=== PATIENT | male | born 1965 | race Caucasian/White ===

== ENCOUNTER 2020-05-16 13:37 | Emergency (ER) | payer OTHER, SELFPAY ==
[2020-05-16 14:42] VITALS: BP 157/106; PULSE 93; RESP 20; TEMP 36.4; O2SAT 100; BMI 25.0
--- NOTE | 2020-05-16 15:16 | CT_ITS ---
EXAMINATION: CT CHEST WITHOUT CONTRAST CLINICAL INFORMATION: Right-sided pain COMPARISON: None TECHNIQUE: Multidetector volumetric CT imaging of the chest was done. Axial MIP volume rendering provided. Sagittal and coronal reformatted images were obtained. This CT examination was performed using dose optimization techniques as appropriate, variously including the following: *Automated exposure control *Adjustment of mA and/or kV according to patient size (this includes techniques or standardized protocols for targeted exams where dose is matched to indication/reason for exam; i.e. 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 MEDIASTINUM: The mediastinum is notable for moderately severe coronary atherosclerosis.. PLEURA: There is no pleural effusion. No pleural mass or thickening. AXILLA: No lymphadenopathy. UPPER ABDOMEN: Partial imaging of severe hepatic steatosis. OSSEOUS STRUCTURES: Minimally displaced acute-appearing right 12th rib fracture posteriorly. No additional findings. CT/CT chest wo con IMPRESSION: Acute right-sided 12th rib fracture posteriorly. No underlying parenchymal abnormality. No pneumothorax.
--- NOTE | 2020-05-16 15:22 | ED_ITS ---
HPI - Fall General Chief Complaint: Fall Stated Complaint: fall Time Seen by Provider: 05/16/20 14:55 Source: patient History of Present Illness HPI Narrative: 54 y.o. M with no significant PMH, takes flonase periodically presenting to the ED after a fall. Pt. states he was at work and there were items on a pallet and he the pallets moved and he slipped and fell landing on his right side. He was able to get himself up and began having increased pain so his friend brought him to the ED. It is on the inferior aspect of his ribs. He insists he broke ribs. The pain is radiating into his upper abdomen. He otherwise denies head injury, no LOC. He is not on anticoagulation. He denies back pain, vomiting, limb injury. No parasthesias reported. No incontinence. Denies symptoms such as CP, SOB, dizziness, lightheadedness prior to the fall. MD complaint: fall Fall from: standing Place fall occurred: work Loss of consciousness: none Symptoms prior to fall: none Related Data Previous Rx's Medication Instructions Recorded acetaminophen [Tylenol] 650 mg PO Q6H PRN 7 Days #28 tab 05/16/20 ibuprofen 600 mg PO Q6H PRN 7 Days #28 tab 05/16/20 lidocaine 1 patch TOPICAL DAILY PRN 7 Days 05/16/20 #7 ea oxycodone 5 mg PO Q6H PRN 3 Days #12 cap 05/16/20 Allergies Allergy/AdvReac Type Severity Reaction Status Date / Time No Known Allergies Allergy Verified 05/16/20 14:47 Review of Systems Constitutional: Constitutional: Denies fever(s) Eyes: Eyes: Reports no additional eye complaints ENT: Denies dizziness and Denies neck pain Cardiovascular: Cardiovascular: Denies chest pain, Denies syncope and Denies dyspnea Comments: rib pain Respiratory: Respiratory: Denies dyspnea Gastrointestinal: Gastrointestinal: Denies abdominal pain and Denies vomiting Genitourinary: Genitourinary: Denies urinary incontinence Musculoskeletal: Musculoskeletal: Denies neck pain Neurologic: Denies dizziness and Denies syncope Psychiatric: Psychiatric: Reports no additional psychiatric complaints Hematologic/Lymphatic: Hematologic/Lymphatic: Denies easy bleeding PMFSH Social History Social History (Updated 05/16/20 @ 17:00 by SHERRIE Vera) Use of substances other than those prescribed or required for medical reasons: No Advance Directives: No Advance Directives Information Provided: Yes Current occupational status: employed Current occupation: works at [employer] Physical Exam Vital Signs: Vital Signs: Last Vital Signs Temp 98.8 F 05/16/20 16:00 Pulse 89 05/16/20 16:00 Resp 20 05/16/20 14:42 BP 170/120 H 05/16/20 16:00 Pulse Ox 97 05/16/20 16:00 Body Mass Index 25.0 Const: Other: sitting upright at the edge of the bed very uncomfortable Orientation/consciousness: patient oriented x3 HENMT: Head: Yes normocephalic and Yes atraumatic Eyes: Pupils: Equal, round and reactive pupils present EOM: EOMs intact bilaterally Neck: Neck: Yes full ROM, Yes trachea midline and Yes supple Chest: Other: tenderness diffusely to right lateral chest wall, no overlying ecchymosis, no open wounds, no rash Resp: Effort & Inspection: normal respiratory effort and able to speak in complete sentences Auscultation: clear to auscultation bilaterally Cardio: Rate: regular rate Rhythm: regular rhythm GI: Inspection: No distended Palpation (GI): Soft to palpation and nontender Back/Spine/Pelvis: Other: no midline cervical, thoracic or lumbar tenderness Skin: Other: warm, moist Neuro: General: patient oriented x3 and no focal motor deficits Cranial nerves: Yes Equal, round and reactive pupils present Extrem: Other: atraumatic, pelvis stable General: Yes full ROM Psych: Appearance: well kempt Course Course Course Narrative: CT shows mildly displaced 12th rib fx. No PNX. Will give incentive spirometer. Will give thoracic surgery follow up. Work connection is also provided since this was a work related injury. HTN most likely secondary to pain, no hx of HTN. Return precautions provided. Will give rx for oxycodone, [place] reviewed. Discussed avoiding driving, working while taking this medication.t. is currently in the process of establishing insurance. Paperwork for work filled out. MDM - Fall MDM Narrative Medical decision making narrative: 54 y.o. M presenting to the ED with right lateral chest wall pain after a fall VS significant for HTN, not toxic appearing, hemodynamically stable WIll plan for chest CT to r/o bony injury, PNX. No preceeding symptoms prior to the fall, fall was mechanical, unlikely syncopal episode. Pt. denies hitting his head, no LOC, not on anticoagulation lower suspicion for intracranial pathology. No midline vertebral tenderness to suggest a fracture. Adbomen is nontender, pain is most likely referred from chest, will defer abdominal imaging. Limbs are atraumatic. No red flags for cord compression. Will give analgesia in the ED as pt. appears very uncomfortable. Discharge Plan Discharge Clinical Impression: Closed rib fracture, Fall Patient Disposition: Home, Self-Care Instructions: How to Use an Incentive Spirometer (ED), Rib Fracture (ED) Additional Instructions: Your CT scan showed you have a 12th rib fracture on the right side. Please call the thoracic surgeon for follow up regarding your broken rib. Use the incentive spirometer, do 5 exercises every hour. Please return to the emergency department if your symptoms worsen, increased pain, trouble breathing, dizziness, feeling faint, abdominal pain, vomiting or any other concerning symptoms. Prescriptions: New acetaminophen [Tylenol] 325 mg tablet 650 mg PO Q6H PRN (Reason: pain) 7 Days Qty: 28 RF: 0 ibuprofen 600 mg tablet 600 mg PO Q6H PRN (Reason: pain) 7 Days Qty: 28 RF: 0 oxycodone 5 mg capsule 5 mg PO Q6H PRN (Reason: pain) 3 Days Qty: 12 RF: 0 lidocaine 5 % adhesive patch,medicated 1 patch topical DAILY PRN (Reason: pain) 7 Days Qty: 7 RF: 0 Referrals: [facility] [Other] - 2 days [facility] [Other] - 2 days Alexis Joe MD [Physician] - 2 days (to discuss rib fracture ) Interventions: ED Discharge Assessment Last Done: 05/16/20 17:14 Discharge Date/Time: 05/16/20 17:16
[2020-05-16] MEDS: Lidocaine 4 % Patch ADH..PATCH 1 PATCH TRANSDERMA (15:56)
[2020-05-16] MEDS: Ketorolac Tromethamine 30 MG/ML VIAL IM (15:57)
[2020-05-16] MEDS: oxyCODONE HCl Immed Release 5 MG TABLET PO (15:59)
[2020-05-16] MEDS: Acetaminophen 325 MG TABLET 650 MG PO (15:59)
[2020-05-16 16:00] VITALS: BP 170/120; PULSE 89; TEMP 37.1; O2SAT 97
[2020-05-16] MEDS: Gabapentin 100 MG CAPSULE PO (16:00)
== END 2020-05-16 17:16 | disposition home or self-care (01) ==
PROVIDERS: Emergency Provider Emergency Medicine Emergency Medical Services
DX: S22.31XA Fracture of one rib, right side, initial encounter for closed fracture (principal); R07.81 Pleurodynia; Y29.XXXA Contact with blunt object, undetermined intent, initial encounter; Y93.9 Activity, unspecified; Y92.69 Other specified industrial and construction area as the place of occurrence of the external cause; Y99.0 Civilian activity done for income or pay; Z79.899 Other long term (current) drug therapy
CPT/HCPCS: 71250; 96372; 99284; J1885

== ENCOUNTER 2020-05-22 14:27 | Emergency (ER) | payer OTHER, SELFPAY ==
--- NOTE | 2020-05-22 | XR_ITS ---
EXAMINATION: XR RIBS, RIGHT CLINICAL INFORMATION: Rib injury. COMPARISON: CT chest 05/16/2020 TECHNIQUE: 3 views of the right ribs were obtained. Chest PA. FINDINGS: Lungs are clear. No consolidation, pneumothorax, or pleural effusion. The cardiomediastinal silhouette and pulmonary vasculature are normal. Osseous structures are unremarkable. Ribs are intact. No fractures are identified. XR/XR ribs RT min 3V w CXR1V IMPRESSION: Unremarkable chest exam. There is no acute right rib fracture. A 12th rib fractures seen posteriorly on the previous CT chest exam 05/16/2020 is not readily visualized on this exam.
[2020-05-22 14:45] VITALS: BP 203/112; PULSE 72; RESP 16; TEMP 36.1; O2SAT 95; BMI 25.7
--- NOTE | 2020-05-22 16:03 | ED_ITS ---
HPI - General Adult General Chief complaint: Extremity Problem Stated complaint: back pain Time Seen by Provider: 05/22/20 15:47 Source: patient Mode of arrival: ambulatory Limitations: no limitations History of Present Illness HPI narrative: 54-year-old male who presents emergency department for evaluation of right posterior chest pain. The patient had a work related injury approximately 1 week prior, he fell landing on his back. He was seen here at [facility] and had a CT scan of his chest which diagnosed a 12th rib fracture. The patient was treated with ibuprofen, Tylenol, oxycodone and lidoc [place] patches. He states that several days prior when he used a lidocaine patch he developed chest pain which was relieved after removed the patch. He states that he was doing well until today when he was driving he reached with his right arm to get his phone when he had severe pain in his right posterior back in the area of the broken rib. He describes the pain as a crunching sharp pain which i s worse with breathing worse with movement. Pain is 9/10. He denied fever, chills, cough, shortness of breath or dyspnea on exertion. Related Data Previous Rx's Medication Instructions Recorded acetaminophen [Tylenol] 650 mg PO Q6H PRN 7 Days #28 tab 05/16/20 ibuprofen 600 mg PO Q6H PRN 7 Days #28 tab 05/16/20 lidocaine 1 patch TOPICAL DAILY PRN 7 Days 05/16/20 #7 ea oxycodone 5 mg PO Q6H PRN 3 Days #12 cap 05/16/20 oxycodone 5 mg PO Q4H PRN #14 tab 05/22/20 oxycodone 5 mg PO Q4H PRN #14 tab 05/22/20 Allergies Allergy/AdvReac Type Severity Reaction Status Date / Time No Known Allergies Allergy Verified 05/16/20 14:47 Review of Systems Review of Systems: Yes all other systems are reviewed and are negative Neurologic: Reports Abnormal speech present [facility] Past Medical History [facility] Narrative: Patient states that he has a history of borderline hypertension and does not take any medications, he is in the process of getting a primary care doctor. He denies tobacco, alcohol or drug use. Medical History (Updated 05/22/20 @ 16:14 by Johnnie Lam MD) Right rib fracture Social History Social History (Updated 05/16/20 @ 17:00 by SHERRIE Vera) Advance Directives: No Advance Directives Information Provided: No Current occupational status: employed Current occupation: works at [employer] Physical Exam Vital Signs: Vital Signs: Last Vital Signs Temp 96.9 F 05/22/20 14:45 Pulse 72 05/22/20 14:45 Resp 16 05/22/20 14:45 BP 203/112 H 05/22/20 14:45 Pulse Ox 95 05/22/20 14:45 Body Mass Index 25.7 Const: General: cooperative and healthy appearing Orientation/consciousness: oriented to person and oriented to place Limitations: no limitations HENMT: Head: Yes normal to inspection, Yes normocephalic and Yes atraumatic Ears: external ears normal General nose exam: Normal external nose present Face and sinus: Yes normal facial exam Mouth: Normal oral and palatal mucosa present Throat: Yes posterior oropharynx normal Eyes: Periorbital: periorbital findings normal Eyelids: Yes eyelids normal Conjunctivae: conjunctivae normal Sclerae: sclerae normal Corneas: corneas normal Pupils: Equal, round and reactive pupils present Direct Ophthalmoscopy: normal light reflex Neck: Neck: Yes normal visual inspection Chest: Chest palpation & inspection: normal inspection of the chest and tenderness (Right posterior chest in area of rib 12, no crepitus, no ecchymosis) Resp: Effort & Inspection: normal respiratory effort and able to speak in complete sentences Auscultation: clear to auscultation bilaterally Cardio: Rate: regular rate Rhythm: regular rhythm Heart sounds: S1 normal heart sound present, S2 normal heart sound present and no murmurs GI: Inspection: Yes normal to inspection : General: Yes no CVA tenderness Back/Spine/Pelvis: Back: no CVA tenderness Cervical Spine: normal cervical lordosis Thoracic/Lumbar Spine: thoracic and lumbar spine normal to ins pection Skin: Lesions: no lesions Rashes: no rashes Wounds: no wounds Neuro: General: oriented to person and oriented to place Cranial nerves: Yes Equal, round and reactive pupils present Cognition (Neuro): normal cognition Speech: Abnormal speech present Motor exam (neuro): 5/5 motor strength present throughout Extrem: General: Yes normal to inspection and Yes full ROM Psych: Appearance: well kempt Mental Status: mental status grossly normal Speech and movement: Normal speech and movement present Affect: normal affect Attitude: cooperative Thought process: Normal thought process present Thought content: Normal thought content present Course Course Course Narrative: 54-year-old man with a right 12 4th fracture diagnosed on 05/16/[address] scan here at [facility] who presents with increased right sided chest pain after reaching for his phone. Physical examination did reveal tenderness with palpation over his right 12th rib region with no crepitus or ecchymosis noted. Chest x-ray did not visualize the rib fracture, it was only seen on CT scan previously, and there was no evidence of pneumothorax or pneumonia. I did discuss this finding with the patient. The patient was wrapped with an Pool wrap to make a rib belt to see if this helps his pain. I did tell him that a rib belt does not increase your risk for pneumonia. The patient states that has a very physical job no do not think that he will build return to work for 1 week. He was advised to contact her occupational health clinic for re-evaluation on Sunday morning. The patient will be given another prescription for oxycodone to help with his pain. He was discharged with printed and verbal instructions. Procedures Procedure Narrative Procedure Narrative: Application of Pool wrap/rib belt I discussed wrapping the patient with an Pool wrap to act as an rib belt and he consented. A 6 in Pool wrap was wrapped around the patient's lower chest to encompass the 12th rib. The patient did get some relief with application of the Pool wrap. There were no complications. Discharge Plan Discharge Clinical Impression: Rib injury Chest pain Qualifiers: Chest pain type: chest pain on breathing Qualified Code(s): R07.1 - Chest pain on breathing Patient Disposition: Home, Self-Care Instructions: Rib Fracture (ED) Additional Instructions: The x-ray today did not reveal a rib fracture, the rib fracture was only seen on your CT scan. There is no evidence for pneumonia or pneumothorax (popped lung). It sometimes takes 2-6 weeks for rib fracture to heal. The Pool wrap will act as a rib belt and help with the pain that she experiencing. You can also purchase a rib belt from any pharmacy or use the Pool wrap. Rib belts do not increase her risk for pneumonia. Take ibuprofen 200 mg pills, 3 pills every 6 hours as needed for pain. Take Tylenol (acetaminophen) 500 mg pills, 2 pills every 4 to 6 hours as needed for pain. For pain not relieved by ibuprofen and Tylenol take oxycodone 5 mg pills, 1 pill every 4-6 hours as needed for pain. This is a narcotic medication and can cause addiction, this medication can make you sleepy, do no work or drive while taking this medication, this medication can make you drowsy. Follow-up with our Occupational Health Clinic, [facility] or any occupational clinically you choose. You should follow up within 1-2 days to determine your back to work status. I will give you a note not return to work for 1 week, but it is very important that he follow up with the occupational health clinic to confirm the amount of time that she needed to stay out of work. Please return to the emergency department if your symptoms get worse or if you develop any symptoms that are concerning to you. Prescriptions: New oxycodone 5 mg tablet 5 mg PO Q4H PRN (Reason: pain) Qty: 14 RF: 0 oxycodone 5 mg tablet 5 mg PO Q4H PRN (Reason: pain) Qty: 14 RF: 0 No Action acetaminophen [Tylenol] 325 mg tablet 650 mg PO Q6H PRN (Reason: pain) 7 Days Qty: 28 RF: 0 ibuprofen 600 mg tablet 600 mg PO Q6H PRN (Reason: pain) 7 Days Qty: 28 RF: 0 oxycodone 5 mg capsule 5 mg PO Q6H PRN (Reason: pain) 3 Days Qty: 12 RF: 0 lidocaine 5 % adhesive patch,medicated 1 patch topical DAILY PRN (Reason: pain) 7 Days Qty: 7 RF: 0
== END 2020-05-22 16:30 | disposition home or self-care (01) ==
PROVIDERS: Emergency Provider Emergency Medicine Emergency Medical Services
DX: R07.1 Chest pain on breathing (principal); M79.601 Pain in right arm; Z79.899 Other long term (current) drug therapy
CPT/HCPCS: 71101; 99283

== ENCOUNTER 2020-11-09 14:04 | Outpatient (REF) | payer OTHER, SELFPAY ==
--- NOTE | ~2020-11-09 | XR_ITS ---
EXAMINATION: XR SHOULDER, LEFT CLINICAL INFORMATION: Pain COMPARISON: None TECHNIQUE: AP external rotation, Grashey, scapular Y, and axillary views of the left shoulder. FINDINGS: Bone alignment is normal. No fracture or dislocation is seen. The glenohumeral joint is normal. There is arthritis at the acromioclavicular joint. Soft tissues are unremarkable. XR/XR shoulder LT min 2V IMPRESSION: Arthritis at the acromioclavicular joint.
== END 2020-11-09 14:05 | disposition home or self-care (01) ==
LOC: HO.HMGCX 14:04
PROVIDERS: PCP Family Medicine; Visit Provider Family Medicine
DX: M25.512 Pain in left shoulder (principal)
CPT/HCPCS: 73030

== ENCOUNTER 2020-12-01 07:51 | Outpatient (REF) | payer OTHER, SELFPAY ==
--- NOTE | ~2020-12-01 | XR_ITS ---
EXAMINATION: XR SHOULDER, LEFT CLINICAL INFORMATION: Pain COMPARISON: Previous x-ray October 2020 TECHNIQUE: Three views of the left shoulder. FINDINGS: Bone alignment is normal. No fracture or dislocation is seen. The glenohumeral joint is normal. There is arthritis at the acromioclavicular joint. Soft tissues are normal. XR/XR shoulder LT min 2V IMPRESSION: Arthritis at the acromioclavicular joint.
== END 2020-12-01 07:52 | disposition home or self-care (01) ==
LOC: HO.HOSX 07:51
PROVIDERS: Visit Provider Orthopaedic Surgery
DX: S46.002A Unspecified injury of muscle(s) and tendon(s) of the rotator cuff of left shoulder, initial encounter (principal)
CPT/HCPCS: 20610; 73030; 99202; J1040

== ENCOUNTER → 2021-01-07 12:34 | Outpatient (BNVA) | payer OTHER, SELFPAY | PROVIDERS: Visit Provider Physician Assistant | DX: S46.002D Unspecified injury of muscle(s) and tendon(s) of the rotator cuff of left shoulder, subsequent encounter (principal); M77.8 Other enthesopathies, not elsewhere classified | CPT/HCPCS: 99212 ==

== ENCOUNTER 2021-01-17 09:47 | Outpatient (REF) | payer OTHER, SELFPAY | END 2021-01-17 09:48 | disposition home or self-care (01) | LOC: HO.MRI 09:47 | PROVIDERS: PCP Family Medicine; Visit Provider Physician Assistant | DX: Z13.89 Encounter for screening for other disorder (principal) ==

== ENCOUNTER → 2021-01-28 09:29 | Outpatient (BNVA) | payer OTHER, SELFPAY | PROVIDERS: PCP Family Medicine; Visit Provider Physician Assistant | DX: M77.8 Other enthesopathies, not elsewhere classified (principal); S46.002D Unspecified injury of muscle(s) and tendon(s) of the rotator cuff of left shoulder, subsequent encounter | CPT/HCPCS: 99212 ==

== ENCOUNTER 2024-06-25 09:58 | Emergency (ER) | payer OTHER, SELFPAY ==
--- NOTE | ~2024-06-25 | CT_ITS ---
EXAMINATION: CT ABDOMEN AND PELVIS WITH CONTRAST CLINICAL INFORMATION: Elevated lipase COMPARISON: None available. TECHNIQUE: Multidetector volumetric images were obtained from the superior aspect of the liver through the pubic symphysis following administration 85 mL of Omnipaque 350 intravenous contrast. Sagittal and coronal reformatted images were obtained on the technologist's workstation. Oral contrast: No This CT examination was performed using dose optimization techniques as appropriate, variously including the following: *Automated exposure control *Adjustment of mA and/or kV according to patient size (this includes techniques or standardized protocols for targeted exams where dose is matched to indication/reason for exam; i.e. extremities or head) *Use of iterative reconstruction technique DLP: 475 mGy centimeter. FINDINGS: LUNG BASES: Mild pulmonary patchy groundglass with 1 mm nodularity, right lower lung lobe. LIVER, GALLBLADDER, AND BILIARY TREE: Liver measures 17 cm. Decreased enhancement pattern No focal lesion. Portal veins, hepatic veins and intrahepatic portion of the IVC are patent. 2 mm hypodensity in the dome of the left hepatic lobe too small to be fully characterized. No pericholecystic fluid collection or gallbladder wall thickening. No intrahepatic or extrahepatic biliary ductal dilatation. PANCREAS: No focal lesion. No peripancreatic fluid collection. No main pancreatic ductal dilatation. SPLEEN: 12 cm. No focal lesion. ADRENAL GLANDS: No nodular lesion. KIDNEYS AND URETERS: Normal enhancement pattern of the renal parenchyma. No focal lesion. No hydronephrosis. BLADDER: Fluid-filled nearly collapsed. GASTROINTESTINAL TRACT: There is mild concentric wall thickening involving the distal ileal loops. No intestinal obstruction pattern. No pneumatosis intestinalis. Appendix is normal. No pneumoperitoneum. No ascites. ABDOMINAL WALL: Small fat-containing umbilical hernia. LYMPH NODES: Nonspecific mildly prominent mesenteric lymph nodes. VASCULAR: Mixed plaques throughout the abdominal aorta wall and iliac arteries the origin of the left main renal artery and the origin of the superior mesenteric artery. No aneurysm or dissection abdominal aorta. Calcified plaques in the coronary arteries. Retroaortic trajectory left main renal vein. PELVIC VISCERA: Prostate gland is not enlarged. OSSEOUS STRUCTURES: Bilateral spondylolysis pars interarticularis L5-S1 resulting in 1 mm anterolisthesis. Sclerosis and the sacroiliac joints. Degenerative changes in the coxofemoral joints. CT/CT abdomen pelvis w IV con IMPRESSION: Concerning enteritis. An acute inflammatory bowel disease cannot be entirely excluded. Hepatomegaly, mild and steatosis. Questionable acute airspace disease, right lower lung lobe. 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 Small fat-containing umbilical hernia. Fleischner guidelines were followed. Electronically signed by: Víctor Dick MD 06/25/2024 01:55 PM [facility]
--- NOTE | ~2024-06-25 | CT_ITS ---
EXAMINATION: CT HEAD WITHOUT IV CONTRAST HISTORY: ams seizure. TECHNIQUE: Unenhanced helical CT of the head was performed per standard departmental protocol. Coronal and sagittal reformats of the head were also evaluated. One or more of the following techniques was used for dose reduction: Automated exposure control, adjustment of the mA and/or kV according to patient size, use of iterative reconstruction technique. DLP: 646 mGy-cm COMPARISON: There are no prior studies for comparison. FINDINGS: BRAIN: The brain parenchyma is unremarkable. There is normal lainez/white differentiation. The ventricular system is normal in size and configuration. There is no mass effect or midline shift. No intra- or extra-axial fluid collections are identified. SINUSES: The visualized paranasal sinuses are clear. The mastoid air cells and middle ear cavities are well pneumatized. ORBITS: The visualized orbits are unremarkable. BONES/SOFT TISSUES: The extracranial soft tissues are unremarkable. The calvarium is intact. No suspicious lytic or sclerotic lesions. CT/CT head/brain wo IV con IMPRESSION: Unremarkable unenhanced head CT. Electronically signed by: Contreras Coffman MD 06/25/2024 12:54 PM [facility]
[2024-06-25 10:08] VITALS: BP 143/110; PULSE 105; RESP 16; TEMP 35.9; O2SAT 99; BMI 28.0
--- NOTE | 2024-06-25 10:08 | ED.NEUROSD ---
HPI - Neuro Symptoms/Deficit General Chief Complaint: Altered Mental Status Stated Complaint: Confusion due to prior seizure Time Seen by Provider: 06/25/24 11:24 Source: patient Mode of arrival: ambulatory Limitations: no limitations History of Present Illness ED Provider: HPI Narrative: Patient's history of seizure disorder last seizure was about 15 years ago used to be on Topamax ,which was stopped by the primary care doctor as patient did not have a seizure for long on 06/15 patient's was vomiting night and in the morning found himself on the floor with tongue bite likely had a seizure patient lives alone since then patient friend noticed that patient is confused does not know how to unbuckle himself out of the car does not know time of the day patient has had lack of sleep and was taking oxycodone Related Data Previous Rx's ?Medication ?Instructions ?Recorded ibuprofen 800 mg tablet 800 mg PO Q8H PRN pain 30 days #90 10/29/20 tabs oxycodone 10 mg tablet 10 mg PO ONCE PRN pain 1 day #1 tab 01/20/21 blood-glucose meter #1 ea 06/25/24 levetiracetam 500 mg tablet 500 mg PO BID #60 tabs 06/25/24 (Keppra) metformin 500 mg tablet 500 mg PO BID #60 tabs 06/25/24 Allergies Allergy/AdvReac Type Severity Reaction Status Date / Time Seasonal Allergies Allergy itchy Verified 06/25/24 10:14 watery eyes, nasal congestion Review of Systems Review of Systems: Yes all other systems are reviewed and are negative [facility] Past Medical History Medical History (Updated 06/25/24 @ 15:34 by Mekhi Narvaez MD) Diabetes mellitus Right rib fracture Social History Social History Housing: House Patient Tobacco Use Status: Never used Tobacco e-Cigarette/Vaping Use: Never Used service: No Current occupational status: employed 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 Oriented X3. No acute distress. Eyes: PERRLA, No Nystagmus ENT: Pharynx normal. Oral Mucosa moist tongue laceration on the lateral aspect poor dental hygiene with multiple cavities Neck: Normal inspection. Neck supple. CVS: Normal heart rate and rhythm. Pulses normal. Respiratory: No respiratory distress. Equal air entry bilateral, no wheezing/rales/rhonchi Abdomen: Soft and nontender. Bowel sounds are present, no mass palpable, no CVA tenderness Skin: Skin warm and dry. Normal skin color. Normal skin turgor. Extremities: No lower extremity edema. No calf tenderness Neuro: Oriented X 3. No motor deficit. No sensory deficit.No cerebellar signs , cranial nerves II-XII intact Course Course Course Narrative: 58 yo male with no PMH but does not see a doctor. He called his friend on the 16 after woke up with 4 broken teeth and bleeding from mouth, since the fall 10 days ago he has been more confused, belligerent, showing up at his friends house at 7am. He is restless and is seeing bugs. No alcohol no drug use, no supplements over the counter. He has hx of epilepsy but is not on AEDs - states he had several EEGs but states they never found anything at [facility]. He is having short term memory recall he cannot remember how to use a car seatbelt. At this time will obtian labs, EKG, CT head/CT angio this is a RAPID medical screening exam the rest of the history and physical exam is to be done by the main provider. Medications Administered Discontinued Medications Generic Name Dose Route Start Last Admin Trade Name Hernan PRN Reason Stop Dose Admin Insulin Human Lispro 6 unit 06/25/24 13:45 06/25/24 14:00 Insulin Lispro 100 Unit/Ml 3 Ml Vial SUBCUT 06/25/24 13:46 6 unit ONCE ONE Administration Iohexol 100 ml 06/25/24 13:18 06/25/24 13:19 Iohexol 350 Mg/Ml 100 Ml Infus..Btl IV 06/25/24 13:19 85 ml ONCE ONE Administration Levetiracetam 500 mg 06/25/24 13:46 06/25/24 14:00 Levetiracetam 500 Mg Tablet PO 06/25/24 13:47 500 mg ONCE ONE Administration Metformin HCl 500 mg 06/25/24 13:45 06/25/24 14:00 Metformin Hcl Er 500 Mg Tab.Er.24h PO 06/25/24 13:46 500 mg ONCE ONE Administration Medical Decision Making Medical Decision Making [facility] Narrative: Patient's history of seizure likely had a seizure noted to have elevated blood sugar which likely could be the cause of the confusion workup otherwise negative during stay in the ER patient alert oriented x3 brother is at bedside did not notice any change in mental status urine drug screen is negative urine was positive for oxycodone might be when patient took oxycodone and had a poor sleep was the cause of confusion. Patient has had elevated lipase level without any significant abdominal pain CT scan of abdomen was negative pancreas was normal Will start patient on metformin and Keppra advised to follow with neurologist and PCP Differential Diagnosis Differential Diagnoses: The differential diagnosis associated with the presentation includes Seizure disorder/brain mass/metabolic encephalopathy/substance/pancreatitis Admission/Observation Consideration of admission/observation: Escalation of care including admission/observation considered Lab Data [facility] Lab Attestation statement: I reviewed the patient's lab results. 06/25/24 11:11 06/25/24 11:11 Labs: Lab Results 06/25/24 06/25/24 06/25/24 Range/Units 11:11 11:20 12:48 WBC 7.2 (4.8-10.8) X10*3/uL RBC 5.48 (4.60-5.80) X10*6/uL Hgb 16.9 (14.0-18.0) g/dl Hct 46.8 (42.0-52.0) % MCV 85.4 (80.0-98.0) fL MCH 30.8 (27.0-33.0) pg MCHC 36.1 H (31.0-36.0) g/dl RDW 11.3 (11.0-16.0) % Plt Count 200 (160-400) X10*3/uL MPV 9.8 (9.4-12.4) fL Immature Gran % (Auto) 0.4 (0.0-0.4) % Neut % (Auto) 66.1 (45-73) % Lymph % (Auto) 26.4 (20-40) % [place] % (Auto) 5.2 (2-11) % Eos % (Auto) 1.3 (0-4) % Baso % (Auto) 0.6 (0-2) % Lymph # (Auto) 1.9 (1.2-4.9) X10*3/uL [place] # (Auto) 0.4 (0.1-1.2) X10*3/uL Eos # (Auto) 0.1 (0.0-0.4) X10*3/uL Baso # (Auto) 0.0 (0.0-0.2) X10*3/uL Abs Immat Gran (auto) 0.03 (0.00-0.03) X10*3/uL Absolute Neuts (auto) 4.8 (2.0-8.3) x10*3/uL Absolute Nucleated RBC 0.000 (0.0-0.012) X10*3/uL Nucleated RBC % (auto) 0.0 (0.0-0.2) /100WBC VBG pH 7.38 (7.32-7.43) VBG pCO2 49 mmHg VBG pO2 28 mmHg VBG HCO3 29 H (22-26) mmol/L VBG O2 Saturation 38.0 % VBG Base Excess 3.6 mmol/L Sodium 135 (135-145) mmol/L Potassium 4.9 (3.3-5.1) mmol/L Chloride 100 (96-108) mmol/L Carbon Dioxide 28 (22-29) mmol/L Anion Gap 12 (12-20) BUN 19 H (9-16) mg/dL Creatinine 0.93 (0.5-1.4) mg/dL Estim Creat Clear Calc 76.8 Estimated GFR > 60 POC Glucose 291 H (60-115) mg/dL Random Glucose 332 H (60-115) mg/dL Calcium 9.4 (8.4-10.2) mg/dL Magnesium 2.2 (1.6-2.6) mg/dL Total Bilirubin 0.8 (0.0-1.0) mg/dL Direct Bilirubin 0.3 (0.0-0.5) mg/dL AST 52 H (5-37) U/L ALT 89 H (0-40) U/L Alkaline Phosphatase 80 (39-117) U/L Ammonia 26 (13-55) umol/L Troponin I High Sens 3.2 (<3.5-35.0) ng/L C-Reactive Protein 1.05 H (< or = 0.50) mg/dL Total Protein 7.5 (6.5-8.0) g/dL Albumin 4.0 (3.5-5.0) g/dL Lipase 163 H (8-78) U/L TSH 0.87 (0.32-4.0) uIU/mL Beta HCG, Quant < 2 mIU/mL Urine Color Urine Appearance Urine pH (5.0-9.0) Ur Specific [place] (1.005-1.025) Urine Protein (Neg-Trace) mg/dL Urine Glucose (UA) (Negative) mg/dL Urine Ketones (Negative) mg/dL Urine Blood (Negative) Urine Nitrite (Negative) Ur Leukocyte Esterase (Negative) Urine RBC (0-2) /HPF Urine WBC (0-5) /HPF Ur Squamous Epith Cells (0-2) /HPF Urine Bacteria (None Seen) Hyaline Casts (0-2) /LPF Urine Opiates Screen (Not Detect) Ur Buprenorphine Scrn (Not Detect) ng/mL Ur Oxycodone Screen (Not Detect) ng/mL Urine Methadone Screen (Not Detect) ng/mL Urine Fentanyl Screen (Not Detect) Ur Barbiturates Screen (Not Detect) Ur Phencyclidine Scrn (Not Detect) Ur Amphetamines Screen (Not Detect) U Benzodiazepines Scrn (Not Detect) Urine Cocaine Screen (Not Detect) U Marijuana (THC) Screen (Not Detect) Ethyl Alcohol < 10 mg/dL Influenza Type A (PCR) NEGATIVE (Negative) Influenza Type B (PCR) NEGATIVE (Negative) RSV RNA Qual (PCR) NEGATIVE (Negative) SARS-CoV-2 RNA (RT-PCR) NEGATIVE (Negative) 06/25/24 06/25/24 Range/Units 12:52 15:06 WBC (4.8-10.8) X10*3/uL RBC (4.60-5.80) X10*6/uL Hgb (14.0-18.0) g/dl Hct (42.0-52.0) % MCV (80.0-98.0) fL MCH (27.0-33.0) pg MCHC (31.0-36.0) g/dl RDW (11.0-16.0) % Plt Count (160-400) X10*3/uL MPV (9.4-12.4) fL Immature Gran % (Auto) (0.0-0.4) % Neut % (Auto) (45-73) % Lymph % (Auto) (20-40) % [place]wood % (Auto) (2-11) % Eos % (Auto) (0-4) % Baso % (Auto) (0-2) % Lymph # (Auto) (1.2-4.9) X10*3/uL [place] # (Auto) (0.1-1.2) X10*3/uL Eos # (Auto) (0.0-0.4) X10*3/uL Baso # (Auto) (0.0-0.2) X10*3/uL Abs Immat Gran (auto) (0.00-0.03) X10*3/uL Absolute Neuts (auto) (2.0-8.3) x10*3/uL Absolute Nucleated RBC (0.0-0.012) X10*3/uL Nucleated RBC % (auto) (0.0-0.2) /100WBC VBG pH (7.32-7.43) VBG pCO2 mmHg VBG pO2 mmHg VBG HCO3 (22-26) mmol/L VBG O2 Saturation % VBG Base Excess mmol/L Sodium (135-145) mmol/L Potassium (3.3-5.1) mmol/L Chloride (96-108) mmol/L Carbon Dioxide (22-29) mmol/L Anion Gap (12-20) BUN (9-16) mg/dL Creatinine (0.5-1.4) mg/dL Estim Creat Clear Calc Estimated GFR POC Glucose 268 H (60-115) mg/dL Random Glucose (60-115) mg/dL Calcium (8.4-10.2) mg/dL Magnesium (1.6-2.6) mg/dL Total Bilirubin (0.0-1.0) mg/dL Direct Bilirubin (0.0-0.5) mg/dL AST (5-37) U/L ALT (0-40) U/L Alkaline Phosphatase (39-117) U/L Ammonia (13-55) umol/L Troponin I High Sens (<3.5-35.0) ng/L C-Reactive Protein (< or = 0.50) mg/dL Total Protein (6.5-8.0) g/dL Albumin (3.5-5.0) g/dL Lipase (8-78) U/L TSH (0.32-4.0) uIU/mL Beta HCG, Quant mIU/mL Urine Color Yellow Urine Appearance Clear Urine pH 5.5 (5.0-9.0) Ur Specific [place] >= 1.030 H (1.005-1.025) Urine Protein 30 (1+) H (Neg-Trace) mg/dL Urine Glucose (UA) >=1000 H (Negative) mg/dL Urine Ketones 15 (Negative) mg/dL Urine Blood Negative (Negative) Urine Nitrite Negative (Negative) Ur Leukocyte Esterase Negative (Negative) Urine RBC 0-2 (0-2) /HPF Urine WBC 0-5 (0-5) /HPF Ur Squamous Epith Cells 0-2 (0-2) /HPF Urine Bacteria None Seen (None Seen) Hyaline Casts 0-2 (0-2) /LPF Urine Opiates Screen Not Detected (Not Detect) Ur Buprenorphine Scrn Not Detected (Not Detect) ng/mL Ur Oxycodone Screen Positive H (Not Detect) ng/mL Urine Methadone Screen Not Detected (Not Detect) ng/mL Urine Fentanyl Screen Not Detected (Not Detect) Ur Barbiturates Screen Not Detected (Not Detect) Ur Phencyclidine Scrn Not Detected (Not Detect) Ur Amphetamines Screen Not Detected (Not Detect) U Benzodiazepines Scrn Not Detected (Not Detect) Urine Cocaine Screen Not Detected (Not Detect) U Marijuana (THC) Screen Not Detected (Not Detect) Ethyl Alcohol mg/dL Influenza Type A (PCR) (Negative) Influenza Type B (PCR) (Negative) RSV RNA Qual (PCR) (Negative) SARS-CoV-2 RNA (RT-PCR) (Negative) Discharge Plan Discharge Clinical Impression: Seizure disorder, Diabetes mellitus Patient Disposition: Home, Self-Care Instructions: Type 2 Diabetes in Adults: New Diagnosis (DC), Meal Planning with Diabetes Exchanges (DC), Epilepsy (ED) Additional Instructions: Drink plenty of fluids Diabetic diet as advised, sleep well Start taking Keppra and metformin as prescribed Check your blood sugar twice a day and follow with your PCP Follow with neurologist Prescriptions: New levetiracetam [Keppra] 500 mg tablet 500 mg PO BID Qty: 60 3RF metformin 500 mg tablet 500 mg PO BID Qty: 60 3RF (DME) blood-glucose meter Kit See Rx Instructions .Route Qty: 1 0RF Rx Instructions: As directed No Action ibuprofen 800 mg tablet 800 mg PO Q8H PRN (Reason: pain) 30 Days Qty: 90 0RF oxycodone 10 mg tablet 10 mg PO ONCE PRN (Reason: pain) 1 Days Qty: 1 0RF Rx Instructions: Patient has severe pain when laying down needs to be laying down for an extended time for MRI he is to take 1 tablet 30 minutes prior to his MRI. Interventions: ED Discharge Assessment Last Done: 06/25/24 15:35 Discharge Date/Time: 06/25/24 15:36 Print Language: Cuban
--- NOTE | 2024-06-25 10:13 | ECG_ITS ---
Test Reason : change in mental status Blood Pressure : */* mmHG Vent. Rate : 94 BPM Atrial Rate : 94 BPM P-R Int : 150 ms QRS Dur : 90 ms QT Int : 364 ms P-R-T Axes : 30 -48 4 degrees QTcB Int : 455 ms Normal sinus rhythm Left axis deviation Inferior infarct , age undetermined Abnormal ECG No previous ECGs available Referred By: Kiera Bryant Electronically Signed By: Chapincito Rojas
[2024-06-25 11:19] LABS: MANUAL DIFF FLAG NO
[2024-06-25 11:22] LABS: Basophils Percent Auto 0.6 % (0-2); Eosinophils Absolute Auto 0.1 X10*3/uL (0.0-0.4); Eosinophils Percent Auto 1.3 % (0-4); Hematocrit 46.8 % (42.0-52.0); Hemoglobin 16.9 g/dl (14.0-18.0); Imm Gran Abs Auto 0.03 X10*3/uL (0.00-0.03); Imm Gran Pct Auto 0.4 % (0.0-0.4); Lymphocytes Absolute Auto 1.9 X10*3/uL (1.2-4.9); Lymphocytes Percent Auto 26.4 % (20-40); Mean Corpuscular HGB Conc 36.1 g/dl (31.0-36.0); Mean Corpuscular Hemoglobin 30.8 pg (27.0-33.0); Mean Corpuscular Volume 85.4 fL (80.0-98.0); Mean Platelet Volume 9.8 fL (9.4-12.4); Monocytes Absolute Auto 0.4 X10*3/uL (0.1-1.2); Monocytes Percent Auto 5.2 % (2-11); Neutrophils Absolute Auto 4.8 x10*3/uL (2.0-8.3); Neutrophils Percent Auto 66.1 % (45-73); Platelet Count 200 X10*3/uL (160-400); Red Blood Count 5.48 X10*6/uL (4.60-5.80); Red Cell Distribution Width 11.3 % (11.0-16.0); White Blood Count 7.2 X10*3/uL (4.8-10.8)
[2024-06-25 11:23] LABS: Venous Blood Gas Refer to POC result
[2024-06-25 11:24] LABS: VBG Base Excess 3.6 mmol/L; VBG HCO3 29 mmol/L (22-26); VBG pCO2 49 mmHg; VBG pH 7.38 (7.32-7.43); VBG pO2 28 mmHg
[2024-06-25 11:33] LABS: Ammonia 26 umol/L (13-55)
[2024-06-25 11:44] LABS: Troponin-I High Sensitivity 3.2 ng/L (<3.5-35.0)
[2024-06-25 11:47] LABS: Alkaline Phosphatase 80 U/L (39-117)
[2024-06-25 11:48] LABS: Alanine Aminotransferase 89 U/L (0-40); Anion Gap 12 (12-20); Aspartate Amino Transferase 52 U/L (5-37); Bilirubin Direct 0.3 mg/dL (0.0-0.5); Bilirubin Total 0.8 mg/dL (0.0-1.0); Blood Urea Nitrogen 19 mg/dL (9-16); C Reactive Protein 1.05 mg/dL (< or = 0.50); Calcium 9.4 mg/dL (8.4-10.2); Carbon Dioxide 28 mmol/L (22-29); Chloride 100 mmol/L (96-108); Creatinine Clr Calc Pharmacy 76.8; Estimated Glomerular Filt Rate > 60; Ethanol < 10 mg/dL; Glucose Random 332 mg/dL (60-115); Lipase 163 U/L (8-78); Magnesium 2.2 mg/dL (1.6-2.6); Potassium 4.9 mmol/L (3.3-5.1); Sodium 135 mmol/L (135-145); Total Protein 7.5 g/dL (6.5-8.0)
[2024-06-25 12:03] LABS: HCG Quantitative < 2 mIU/mL; TSH reflex Free T4 0.87 uIU/mL (0.32-4.0)
[2024-06-25 12:04] LABS: Influenza A PCR NEGATIVE (Negative); Influenza B PCR NEGATIVE (Negative); Resp Syncy Virus RNA Qual PCR NEGATIVE (Negative); SARS COV2 PCR INHOUSE NEGATIVE (Negative)
[2024-06-25 12:12] VITALS: BP 150/92; PULSE 94; RESP 18; TEMP 36.9; O2SAT 99
--- NOTE | 2024-06-25 12:26 | PC.NURSE ---
pt is alert and appears to be answering questions appropriately, pt;s friend is reporting that 06/16 pt woke up on his kitchen floor with a whole bunch of glasses broken around him and bit the right sided of his tongue pt is missing a small chunk of f the the tongue, pt reports having a hx of seizures but has not been taking meds since he has been a child, pt reports vomiting close to 15 times after the incident, friends reports pt acting not himself since the incident, reports pt not knowing how to buckle himself in the the pt's car with the seat belt, getting times of the day very confused, knot knowing how to open the friends door with a calvo the the has done multiple times in the past, seeing bugs in the triage chair. all nuro's in tact at this,
[2024-06-25 12:53] LABS: Glucose, Whole Blood 291 mg/dL (60-115)
[2024-06-25 13:01] LABS: Appearance Urine Clear; Color Urine Yellow; Glucose Urine UA >=1000 mg/dL (Negative); Leukocyte Esterase Urine Negative (Negative); Nitrite Urine Negative (Negative); PH 5.5 (5.0-9.0); Specific Gravity - Urine >= 1.030 (1.005-1.025); UMIC TRIGGER UACC YES; Urine Blood Negative (Negative); Urine Ketones 15 mg/dL (Negative); Urine Protein 30 (1+) mg/dL (Neg-Trace)
[2024-06-25 13:03] LABS: Bacteria Urine None Seen (None Seen); Hyaline Casts Urine 0-2 /LPF (0-2); RBC Urine 0-2 /HPF (0-2); Squamous Epithelial Cell Urine 0-2 /HPF (0-2); WBC Urine 0-5 /HPF (0-5)
[2024-06-25] MEDS: iohexoL 350 MG/ML 100 ML INFUS..BTL IV (13:19)
[2024-06-25] MEDS: levETIRAcetam 500 MG TABLET PO (14:00)
[2024-06-25] MEDS: Insulin Lispro 100 UNIT/ML 3 ML VIAL 6 UNIT SUBCUT (14:00)
[2024-06-25] MEDS: metFORMIN HCl ER 500 MG TAB.ER.24H PO (14:00)
[2024-06-25 14:04] VITALS: BP 129/90; PULSE 104; RESP 14; TEMP 36.4; O2SAT 99
[2024-06-25 14:19] LABS: Amphetamine Screen Urine Not Detected (Not Detect); Barbiturates, Urine Not Detected (Not Detect); Benzodiazepines Screen Urine Not Detected (Not Detect); Buprenorphine Scr Not Detected (Not Detect); Cannabinoid Screen Urine Not Detected (Not Detect); Cocaine Screen Urine Not Detected (Not Detect); Fentanyl, urine Not Detected (Not Detect); Methadone Screen, Urine Not Detected (Not Detect); Opiate Screen Urine Not Detected (Not Detect); Oxycodone Screen Urine Positive (Not Detect); Phencyclidine Screen Urine Not Detected (Not Detect)
[2024-06-25 15:09] LABS: Glucose, Whole Blood 268 mg/dL (60-115)
[2024-06-25 15:35] VITALS: BP 129/90; PULSE 104; RESP 14; TEMP 36.4; O2SAT 99
== END 2024-06-25 15:36 | disposition home or self-care (01) ==
PROVIDERS: Emergency Medicine; Emergency Provider Internal Medicine; PCP Internal Medicine
DX: G40.909 Epilepsy, unspecified, not intractable, without status epilepticus (principal); E11.9 Type 2 diabetes mellitus without complications; Z03.818 Encounter for observation for suspected exposure to other biological agents ruled out
CPT/HCPCS: 0241U; 70450; 74177; 80048; 80076; 80307; 81001; 81003; 82140; 82803; 82947; 83690; 83735; 84443; 84484; 84702; 85025; 86140; 93005; 99285; Q9967

== ENCOUNTER → 2024-06-25 10:13 | Outpatient (BNV) | payer OTHER, SELFPAY | PROVIDERS: Emergency Provider Internal Medicine; PCP Internal Medicine; Visit Provider Internal Medicine Cardiovascular Disease | DX: R94.31 Abnormal electrocardiogram [ECG] [EKG] (principal); R41.82 Altered mental status, unspecified | CPT/HCPCS: 93010 ==

== ENCOUNTER → 2024-06-25 12:28 | Outpatient (BNV) | payer OTHER, SELFPAY | PROVIDERS: Emergency Provider Internal Medicine; PCP Internal Medicine; Visit Provider Radiology Diagnostic Radiology | DX: R74.8 Abnormal levels of other serum enzymes (principal); R41.82 Altered mental status, unspecified | CPT/HCPCS: 70450; 74177 ==

== ENCOUNTER 2024-06-30 12:49 | Outpatient (AMB) | payer OTHER, SELFPAY ==
--- NOTE | 2024-06-30 13:03 | A.OFFPC_ITS ---
Vital Signs 06/30/24 13:05 Height 5 ft 2.4 in Weight 160 lb 6 oz BMI 29.0 BP 122/74 Blood Pressure Location Lt brachial Position Sitting Pulse 87 Pulse Source Pulse Oximeter Temp 97.5 F Temp Source Temporal Artery Scan Pulse Oximetry (%) 96 Oxygen Delivery Method Room Air Intake Visit Reasons: new patient er discharge seizures Intake Note: Patient is a new patient here to establish care for Hx of Seizures. Transferring care from [facility]. Medical records have been requested and have not received. Cocoa Press Operator Required: No Hardboard Grinder: Present Accompanied by: Friend Allergies Seasonal Allergies Allergy (Verified 06/30/24 13:04) itchy watery eyes, nasal congestion Medication List - Last Reconciled 06/30/24 by Vonda Crump MD blood-glucose meter As directed ibuprofen 800 mg PO Q8H PRN 30 days levetiracetam (Keppra) 500 mg PO BID metformin 500 mg PO BID Tobacco use date assessed: 06/30/24 Dental Screening Dental Screen Date: 06/30/24 Did you have a dental visit in the last 12 months?: No Did you have a dental problem in the last 6 months where you did not have access to dental care?: No Was dental information given to patient?: No [facility] Medical History (Updated 06/30/24 @ 13:25 by Vonda Crump MD) Diabetes mellitus Right rib fracture Surgical History (Updated 06/30/24 @ 13:12 by ABDI Richard) No pertinent past surgical history Family History (Updated 06/30/24 @ 13:13 by ABDI Richard) Other Mental health disorder Social History (Updated 06/30/24 @ 13:31 by Vonda Crump MD) Housing: House Alcohol intake: former Comment: quit 05/2024 used to did drink a lot before Patient Tobacco Use Status: Never used Tobacco Years Smoked: marijuana e-Cigarette/Vaping Use: Never Used Second Hand Smoke Exposure: No service: No Current occupational status: unemployed Current occupation: rt handed/[employer] Cognitive needs: No Hearing needs: No Vision needs: No Questionnaire PHQ-9 Over the last 2 weeks, how often have you been bothered by any of the following problems? 1. Little interest or pleasure in doing things: nearly every day 2. Feeling down, depressed, or hopeless: not at all 3. Trouble falling or staying asleep, or sleeping too much: nearly every day 4. Feeling tired or having little energy: not at all 5. Poor appetite or overeating: not at all 6. Feeling bad about yourself - or that you are a failure or have let yourself or your family down: not at all 7. Trouble concentrating on things, such as reading the newspaper or watching television: not at all 8. Moving or speaking so slowly that other people could have noticed. Or the opposite - being so fidgety or restless that you have been moving around a lot more than usual: several days 9. Thoughts that you would be better off or of hurting yourself in some way: not at all Total score: 7 Depression Screening Interpretation: Positive Depression Screening Done: Yes Source: Developed by Drs. Contreras Edwards, Arabella Akers, Timbo Hoffman and colleagues, with an educational ernie from [employer]. Thrive Questionnaire Date Thrive assessed: 06/30/24 I am a: Patient What is your living situation today?: I have a steady place to live Within the past 12 months, did the food you bought not last and you didn't have the money to get more?: Never true Within the past 12 months, did you worry whether your food would run out before you got money to buy more?: Never true Do you have trouble paying for medicines?: No Do you have trouble getting transportation to medical appointments?: No Do you have trouble paying your heating and electricity bill?: No Do you have trouble taking care of your child, family member or friend?: No Do you have trouble with day-to-day activities such as bathing, preparing meals, shopping, managing finances, etc.?: No Are you currently unemployed and looking for a job?: Yes Are you interested in more education?: No Please select the resources that you would like help with: None Currently or been in a relationship where the following occur: No concerns reported THRIVE Score: 0 AUDIT C Alcohol Use Questionnaire (AUDIT-C) 1. How often do you have a drink containing alcohol?: 2-4 times a month 2. How many drinks containing alcohol do you have on a typical day when you are drinking?: 1 or 2 3. How often do you have six or more drinks on one occasion?: Never Total Score: 2 JASPREET-7 AMB Questionnaire JASPREET-7 Date JASPREET - 7 assessed: 06/30/24 Feeling nervous, anxious, or on edge: 0 = Not at all Not being able to stop or control worryin = Not at all Worrying too much about different things: 0 = Not at all Trouble relaxin = Not at all Being so restless that it is hard to sit still: 0 = Not at all Becoming easily annoyed or irritable: 3 = Nearly every day Feeling afraid as if something awful might happen: 0 = Not at all Total JASPREET-7 score (0-4 normal; 5-9 mild; 10-14 moderate; 15-21 severe): 3 Source: Developed by Drs. Contreras Edwards, Arabella Akers, Timbo Hoffman and colleagues, with an educational ernie from [employer]. Physical exam (Primary Care) Vital Signs: Last Vital Signs Temp 97.5 F 06/30/24 13:05 Pulse 87 06/30/24 13:05 BP 122/74 06/30/24 13:05 Pulse Ox 96 06/30/24 13:05 Oxygen Delivery Method Room Air 06/30/24 13:05 BMI result Body Mass Index 29.0 Tobacco/Smoking Status: Tobacco use Status Tobacco use date assessed 06/30/24 06/30/24 13:14 Patient Tobacco Use Status Never used Tobacco 06/30/24 13:30 e-Cigarette/Vaping Use Never Used 06/30/24 13:30 PHQ-9: PHQ-9 Score PHQ-9: Total score 7 06/30/24 13:14 Depression Screening Interpretation: Positive Thrive Assessment: Date of Thrive Assessment Date Thrive assessed 06/30/24 06/30/24 13:14 Currently or been in a relationship where the following occur: No concerns reported Const General: alert; No acute distress Eyes Conjunctivae: conjunctivae normal Resp Auscultation: clear to auscultation bilaterally Cardio Rate: regular rate Rhythm: regular rhythm GI Inspection: Yes normal to inspection Extrem General: Yes normal to inspection and No edema Results AMB Hemoglobin A1c AMB Hemoglobin A1c 11.6 % Last Edit by ABDI Richard on 06/30/24 13:4 1 Coding Level of Care Code New Pt Level 4 (17057) Complex EM visit Add On G2211 Diagnoses Seizure disorder G40.909 Type 2 diabetes mellitus with hyperglycemia E11.65 Hypertension, essential I10 Tendonitis of shoulder, left M77.8 Confusion R41.0 Assessment & Plan Assessment & Plan (1) Seizure disorder: Code(s): G40.909 - Epilepsy, unspecified, not intractable, without status epilepticus Category: Medical Plan: Continue with Kera and will do referral to Neurology (2) Type 2 diabetes mellitus with hyperglycemia: Code(s): E11.65 - Type 2 diabetes mellitus with hyperglycemia Category: Medical Plan: Decrease the amount of carbohydrate intake, pasta, bread, rice and potatoes are all sugar and that is aside from all the sweet stuff, remember that fruits are good but they are Sweet also. Hemoglobin A1c goal of less than 6.5 patient on metformin 500 mg twice a day patient is reminded about Ophthalmology referral and discussed about complications of diabetes. Discussed about 1st time diagnosis advised to change diet and will have him follow-up in 6 weeks if the numbers are high still then will start on insulin (3) Hypertension, essential: Code(s): I10 - Essential (primary) hypertension Category: Medical Plan: Monitor the blood pressure and record (4) Tendonitis of shoulder, left: Code(s): M77.8 - Other enthesopathies, not elsewhere classified Category: Medical Plan: Patient has seen Orthopedics (5) Confusion: Code(s): R41.0 - Disorientation, unspecified Category: Medical Plan: Patient is not aware of the date, time, does not know why oxycodone is in his drug test. Patient is referred for senior living for evaluation. MRI requested referral to Neurology urgent EEG requested Plan History of Present Illness The patient is a 58-year-old male presenting with confusion and a history of seizure disorder for evaluation. The patient's medical history includes hypertension, diabetes mellitus type 2, and elevated liver function tests. Previously, he was on Topiramate for seizure management, which has since been d iscontinued. Two weeks ago, the patient experienced severe vomiting followed by disorientation and an apparent seizure, resulting in broken teeth and oral trauma. Confusion has persisted since. An evaluation for a potential seizure included a urine drug screen revealing oxycodone, which the patient denies using. He also has a history of shoulder tendinitis from an occupational injury treated by orthopedics. The patient?s diabetes management has been suboptimal, with an elevated hemoglobin A1c of over 11, indicating poor glucose control. Additional laboratory findings revealed elevated liver enzymes. Confusion has persisted, raising concerns over his ability to live independently. His history includes alcohol use, recently ceased three weeks ago, and denial of ongoing use. Past evaluations, including CT imaging and EEGs, have not shown definitive sources for seizures, warranting continued investigation. Health Maintenance - Influenza vaccination discussed, with plans to administer this visit. - Diabetic nephropathy screening recommended with urine protein checks. - Referral for diabetic retinopathy screening. - Nutrition evaluation to address diabetes management. - Review and adjustment of long-term diabetic management. - Discussion on cardiovascular risk reduction via lifestyle changes. - Consideration for referral to senior living for further evaluation and support. Social History - Lives alone; safety concerns due to cognitive issues. 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 - Does not consume alcohol since the past three weeks; history of excessive intake. - No current use of tobacco; denies marijuana use for several months. - Limited physical activity outside of dog walking. - No structured exercise program; sporadic activity reported. - Concerns over medication compliance due to cognitive status. Review of Systems - Neurological: Reports confusion, difficulty with memory, and disorientation. - Gastrointestinal: Reports frequent urination, denies abdominal pain. - Endocrine: Denies changes in weight or appetite. - Musculoskeletal: Denies new joint or muscle pain; chronic shoulder pain reported. - Psychiatric: Reports confusion; denies depression or anxiety. Physical Exam General: Cooperative, healthy appearing, comfortable, no acute distress and well developed Orientation: Patient disoriented, unable to correctly identify the current month and year Limitations: No limitations Head: Normal to inspection Ears: Hearing grossly normal bilaterally Nose: Normal external nose present Face and sinus: Normal facial exam Eyes: Appearance normal, both eyes and all related structures Neck: Normal visual inspection and Yes full ROM Respiratory: Normal respiratory effort and able to speak in complete sentences. Clear to auscultation bilaterally Cardiovascular: Regular rate and rhythm. Normal S1 and S2 GI: Normal to inspection. Soft to palpation and nontender Skin: No rashes or lesions noted Neuro: Patient disoriented, unable to correctly identify the current month and year Extremities: Normal to inspection Results - Labs: Elevated blood sugar levels, elevated liver function tests, positive urine drug screen for oxycodone. - Tests: Previous CT scans showed no acute findings; EEGs have not shown definitive seizure activity. Plan In light of the patient's confusion and reported seizure activity, I will continue the patient's current medication Keppra 500 mg and facilitate a neurology referral for further evaluation, including MRI and EEG testing. The diabetes management requires improvement, as indicated by a significantly elevated hemoglobin A1c. I will refer the patient to nutritional counseling and propose lifestyle changes focusing on diet and exercise. There is a recommendation for senior living assessment at home to evaluate living conditions and medication adherence. Regular monitoring of glucose levels is crucial, and family support will be developed to aid compliance with treatment plans. Consideration of insulin therapy will depend on subsequent glucose readings and lifestyle adherence. Follow-up appointments are necessary to review the progress of these interventions and adjust the treatment plan if needed. Patient was informed and verbally consented to the use of an ambient scribe for clinic note documentation during this visit. Discussion Notes During this visit, I explained to the patient the possible causes of his ongoing confusion, presumed seizure activity, and the need for continued seizure management with Keppra. I discussed obtaining further neurological evaluation through MRI and EEG to identify any underlying neurological disorders contributing to these symptoms. We reviewed the significance of his elevated blood glucose levels and hemoglobin A1c, emphasizing the need for improved glycemic control through dietary modifications and regular physical activity. Additionally, potential lifestyle changes and their impact on his diabetes m anagement were addressed. The patient was informed about the risks of persistent hyperglycemia, including potential damage to the kidneys and vision, highlighting the necessity for senior living and home care assistance for medication management. I advised follow-up within six weeks for reassessment and emphasized contacting the office for any significant concerns. Patient Instructions - Continue taking Keppra 500 mg as prescribed for seizure management. - Schedule and attend referral appointments with neurology for MRI and EEG. - Arrange for a senior living assessment to evaluate home safety and medication management. - Monitor blood sugar regularly and keep a detailed log, noting dietary intake. - Follow a balanced diet, incorporating more vegetables and reducing carbohydrate intake. - Engage in regular physical activity, such as walking. - Attend an eye exam for diabetic retinopathy screening. - Avoid alcohol and ensure medication adherence. - Contact the office with any worsening of confusion or if seizures recur. Orders: Orders Free T4 (Free Thyroxine) Today E11.65 - Type 2 diabetes mellitus with hyperglycemia Vitamin B12 and Folate Today E11.65 - Type 2 diabetes mellitus with hyperglycemia Microalbumin, Random (w Creat) Today E11.65 - Type 2 diabetes mellitus with hyperglycemia EEG ambulatory Today G40.909 - Epilepsy, unspecified, not intractable, without status epilepticus MR head/brain w con Today R41.0 - Disorientation, unspecified Complete Blood Count Auto Diff Today .65 - Type 2 diabetes mellitus with hyperglycemia Comprehensive Met. Panel Today E11.65 - Type 2 diabetes mellitus with hyperglycemia Thyroid Stimulating Hormone Today E11.65 - Type 2 diabetes mellitus with hyperglycemia Lipid Panel Today E11. - Type 2 diabetes mellitus with hyperglycemia, E78.00 - Pure hypercholesterolemia, unspecified Prostate Specific Antigen Scr Today E11. - Type 2 diabetes mellitus with hyperglycemia Creatinine Urine Today . - Type 2 diabetes mellitus with hyperglycemia AMB Hemoglobin A1c Today . - Type 2 diabetes mellitus with hyperglycemia Referrals Neurology Referral R41.0 - Disorientation, unspecified [facility] Referral E11.65 - Type 2 diabetes mellitus with hyperglycemia, G40.909 - Epilepsy, unspecified, not intractable, without status epilepticus, R41.0 - Disorientation, unspecified Medications: New blood-glucose meter (FreeStyle Lite Meter kit) As directed 1 ea 0RF .65 - Type 2 diabetes mellitus with hyperglycemia lancets (FreeStyle Lancets) As directed check BS QD 100 ea 3RF .65 - Type 2 diabetes mellitus with hyperglycemia blood sugar diagnostic (FreeStyle Lite Strips) As directed check the BS QD 100 ea 3RF E11.65 - Type 2 diabetes mellitus with hyperglycemia
[2024-06-30 13:05] VITALS: BP 122/74; PULSE 87; TEMP 36.4; O2SAT 96; BMI 29.0
== END 2024-06-30 14:17 | disposition home or self-care (01) ==
PROVIDERS: PCP Internal Medicine; Visit Provider Internal Medicine
DX: G40.909 Epilepsy, unspecified, not intractable, without status epilepticus (principal); E11.65 Type 2 diabetes mellitus with hyperglycemia; I10 Essential (primary) hypertension; M77.8 Other enthesopathies, not elsewhere classified; R41.0 Disorientation, unspecified; Z23 Encounter for immunization

== ENCOUNTER → 2024-06-30 12:49 | Outpatient (BNVA) | payer OTHER, SELFPAY | PROVIDERS: PCP Internal Medicine; Visit Provider Internal Medicine | DX: Z23 Encounter for immunization (principal); G40.909 Epilepsy, unspecified, not intractable, without status epilepticus; E11.65 Type 2 diabetes mellitus with hyperglycemia; I10 Essential (primary) hypertension; M77.8 Other enthesopathies, not elsewhere classified; R41.0 Disorientation, unspecified | CPT/HCPCS: 83036; 90471; 90656; 99202 ==

== ENCOUNTER 2024-07-07 19:29 | Outpatient (REF) | payer OTHER, SELFPAY ==
--- NOTE | ~2024-07-07 | MR_ITS ---
EXAMINATION: MR BRAIN WITHOUT CONTRAST CLINICAL INFORMATION: Disorientation. Change in mental status. Probable seizure. COMPARISON: Correlated to CT brain dated June 25, 2024. TECHNIQUE: MRI of the brain was obtained using routine sequences without contrast. FINDINGS: There are a few, punctate hyperintense T2 FLAIR and DWI deep white matter signal abnormality in a watershed distribution with isointense signal on the corresponding ADC map. No signal abnormality or volume loss in the hippocampi. No acute intracranial hemorrhage, mass effect, midline shift, hydrocephalus or herniation. Multifocal old lacunar infarcts in the basal ganglia with the cribriform pattern. Posterior cranial fossa contents demonstrated no gross signal abnormality. Prominent Virchow-Cale spaces in the midbrain. Flow-void signal within the main cerebral vessels is normal Sellar/suprasellar region is normal. Craniocervical junction is intact and normal. There is a 1.5 cm polypoid mucosal thickening, posterior right maxillary sinus. MR/MR head/brain wo con IMPRESSION: Consider subacute to old nonhemorrhagic ischemia in a watershed distribution both frontal lobes. No acute intracranial hemorrhage or acute stroke. Small vessel occlusive disease. Polyp, right maxillary sinus. Electronically signed by: Víctor Dick MD 07/08/2024 09:16 AM EDT
== END 2024-07-07 19:30 | disposition home or self-care (01) ==
LOC: HO.MRI 19:29
PROVIDERS: Visit Provider Internal Medicine
DX: R41.0 Disorientation, unspecified (principal)
CPT/HCPCS: 70551

== ENCOUNTER → 2024-07-07 19:40 | Outpatient (BNV) | payer OTHER, SELFPAY | PROVIDERS: Visit Provider Radiology Diagnostic Radiology | DX: I73.9 Peripheral vascular disease, unspecified (principal) | CPT/HCPCS: 70551 ==

== ENCOUNTER 2024-07-10 11:50 | Emergency (ER) | payer OTHER, SELFPAY ==
[2024-07-10 11:57] VITALS: BP 132/85; PULSE 107; RESP 16; TEMP 36.2; O2SAT 99; BMI 28.1
--- NOTE | 2024-07-10 12:00 | ED_ITS ---
HPI - General Adult General Chief complaint: Recheck/Abnormal Lab/Rx Stated complaint: Brain bleed? Agitation? Time Seen by Provider: 07/10/24 12:45 History of Present Illness ED Provider: Dr. Edwards HPI narrative: 58 y/o M patient; PMH childhood epilepsy previously not on anticonvulsants (now on Keppra 500mg BID), HTN, T2DM recently diagnosed now on Metformin; presents from home with mother with concern for abnormal MRI Brain which was ordered by PCP on Sunday07/07/2024. Read by neurology as consider subacute to old nonhemorrhagic ischemia in a watershed distribution in both frontal lobes . Patient's PCP requested he present to the emergency department for further evaluation. Patient's mother provides further history separate from patient. She states since the patient had a seizure on 06/08 and was started on Keppra he has had severe behavioral changes. Mother states he has been more aggressive, agitated, and confused. She reports him frequently engaging in verbal and almost physical altercations with strangers in a store. She reports severe difficulty controlling his angry emotions. 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 She states today he went to drive his father's car but got lost in the garage and could not figure out how to get out. Related Data Previous Rx's ?Medication ?Instructions ?Recorded blood-glucose meter #1 ea 06/25/24 metformin 500 mg tablet 500 mg PO BID #60 tabs 06/25/24 blood sugar diagnostic (FreeStyle #100 ea 06/30/24 Lite Strips) blood-glucose meter (FreeStyle #1 ea 06/30/24 Lite Meter kit) lancets 28 gauge (FreeStyle #100 ea 06/30/24 Lancets) divalproex 500 mg tablet,delayed 500 mg PO BID 30 days #60 tabs 07/10/24 release (Depakote) Allergies Allergy/AdvReac Type Severity Reaction Status Date / Time Seasonal Allergies Allergy itchy Verified 07/10/24 11:58 watery eyes, nasal congestion levetiracetam AdvReac Severe psychosis, Verified 07/11/24 16:13 confusion Review of Systems 2 Review of Systems: Yes all other systems are reviewed and are negative PMFSH Past Medical History Attestation statement: The following information was validated with the patient. Source: old records reviewed Medical History Diabetes mellitus Right rib fracture Surgical History No pertinent past surgical history Family History Family History Other Mental health disorder Social History Social History Housing: House Alcohol intake: former Comment: quit 05/2024 used to did drink a lot before Patient Tobacco Use Status: Never used Tobacco Years Smoked: marijuana Smoked in Last 30 Days: No e-Cigarette/Vaping Use: Never Used Second Hand Smoke Exposure: No Use of substances other than those prescribed or required for medical reasons: No Advance Directives: No Advance Directives Information Provided: Yes service: No Current occupational status: unemployed Current occupation: rt handed/[employer] Cognitive needs: No Hearing needs: No Vision needs: No Physical Exam ED Vital Signs: Vital Signs - 24 hr 07/10/24 18:22 07/11/24 06:00 07/11/24 08:35 Temperature 98.2 F 98 F Pulse Rate 74 99 Respiratory Rate 16 18 16 Blood Pressure 138/76 127/87 Pulse Oximetry 99 100 Oxygen Delivery Method Room Air Room Air BMI result Body Mass Index 28.1 Patient is afebrile and hemodynamically stable Const General: cooperative HENMT Head: Yes normal to inspection and Yes atraumatic Eyes General: appearance normal, both eyes and all related structures Pupils: Equal, round and reactive pupils present EOM: EOMs intact bilaterally Neck Neck: Yes normal visual inspection, Yes full ROM, Yes supple and No tender Chest Chest palpation & inspection: normal inspection of the chest and normal palpation of entire chest wall Resp Effort & Inspection: normal respiratory effort, able to speak in complete sentences, no cough and no respiratory distress Auscultation: clear to auscultation bilaterally Cardio Rate: regular rate Rhythm: regular rhythm Peripheral pulses: Peripheral pulses 2+ throughout GI Inspection: Yes normal to inspection, No Abdominal wall edema and No distended Palpation (GI): Soft to palpation, not firm, nontender, no guarding and not rigid Auscultation: normal bowel sounds Back/Spine/Pelvis Back: No back tenderness Neuro Cranial nerves: Yes Equal, round and reactive pupils present Course Course Course Narrative: This is an RME: Additional HPI, ROS, PE not included below will be deferred to primary provider. RME assessment and note performed by: Mignon Valerio PA-C This is a [id number], with a PMHx of hypertension, diabetes mellitus type 2, who presents to the ER with abnormal MRI. Patient was called by his primary care physician this morning informing him to get to the nearest emergency room as he has a head bleed. Patient was seen by Dr. Chinchilla on 06/30/14 - patient had ongoing confusion which was addressed at the appointment. He had a grand mal seizure in June 01, no recent seizures. He has been taking all of his medications as prescribed. MRI 3 days ago showed abnormal, nonhemorrhagic ischemia, no neurologic deficits on examination. Reevaluation(s) Reevaluation #1: Patient is afebrile and hemodynamically stable. I spoke with Neurology who reviewed the patient's imaging. They recommended out radiologist re-read the patient's out-patient MRI from 07/07/2024. The re-read notes scattered punctate and minimally confluent foci of T2 signal hyperintensity within the periventricular and hemispheric deep white matter, with a nonspecific pattern. Given distribution and pattern, this could conceivably represent either small vessel ischemic changes or inflammatory demyelination. Only tiny left anterior gangliocapsular lacunar type infarct. I requested CARE consult and PT/CM consultation. 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 Pending recommendations at this time. Plan: Transition care to Dr. Narvaez Condition: Stable Medications Administered Generic Name Dose Route Start Last Admin Trade Name Freq PRN Reason Stop Dose Admin Divalproex Sodium 500 mg 07/10/24 21:00 07/11/24 08:34 Divalproex Sodium [address] CHINCHILLA 07/12/24 23:59 500 mg BID BRIANA Administration Metformin HCl 500 mg 07/10/24 21:00 07/11/24 08:34 Metformin Hcl 500 Mg Tablet PO 07/13/24 23:59 500 mg BID BRIANA Administration Discontinued Medications Generic Name Dose Route Start Last Admin Trade Name Freq PRN Reason Stop Dose Admin Divalproex Sodium 500 mg 07/10/24 16:24 07/10/24 17:15 Divalproex Sodium 500 Mg Tablet. PO 07/10/24 16:25 Not Given BID ONE Metformin HCl 500 mg 07/10/24 16:24 07/10/24 17:15 Metformin Hcl 500 Mg Tablet PO 07/10/24 16:25 Not Given BID ONE Medical Decision Making Medical Decision Making MDM Narrative: case discussed with patient's friend Ngoc Saenz phone number [phone] who knows him for last 20 years according to her patient does have anger problems and was more confused after he had a seizure on 06/15 and started on Keppra patient has been more agitated and assaultive and confused since then but he was confused prior to starting Keppra also got worse after Keppra per neurology is could be Keppra induced psychosis MRI was done which was no acute finding except for old stroke. Patient is supposed to see psychiatrist before disposition. Case discussed with care team. Ngoc Saenz phone number [phone] Wants to be informed about disposition Admission/Observation Physician observation continued. No acute events during my care. Vital signs stable. Patient cleared by psychiatry team and neurology team. Neurology recommends discontinuing Keppra due to concern for potential allergy or adverse effect. Recommends continuing valproic acid 500 mg p.o. b.i.d.. Review of the medical record demonstrates that this prescription has already been sent. Patient was discharged home in stable improved condition with strict return precautions and recommendations for continued outpatient neurology follow up. Lab Data 07/10/24 14:27 07/10/24 14:27 Labs: Lab Results 07/10/24 07/11/24 Range/Units 14:27 10:06 WBC 6.0 (4.8-10.8) X10*3/uL RBC 5.04 (4.60-5.80) X10*6/uL Hgb 15.6 (14.0-18.0) g/dl Hct 41.6 L (42.0-52.0) % MCV 82.5 (80.0-98.0) fL MCH 31.0 (27.0-33.0) pg MCHC 37.5 H (31.0-36.0) g/dl RDW 11.3 (11.0-16.0) % Plt Count 128 L D (160-400) X10*3/uL MPV 10.2 (9.4-12.4) fL Immature Gran % (Auto) 0.3 (0.0-0.4) % Neut % (Auto) 63.5 (45-73) % Lymph % (Auto) 27.5 (20-40) % [place] % (Auto) 6.2 (2-11) % Eos % (Auto) 2.2 (0-4) % Baso % (Auto) 0.3 (0-2) % Lymph # (Auto) 1.6 (1.2-4.9) X10*3/uL [place] # (Auto) 0.4 (0.1-1.2) X10*3/uL Eos # (Auto) 0.1 (0.0-0.4) X10*3/uL Baso # (Auto) 0.0 (0.0-0.2) X10*3/uL Abs Immat Gran (auto) 0.02 (0.00-0.03) X10*3/uL Absolute Neuts (auto) 3.8 (2.0-8.3) x10*3/uL Absolute Nucleated RBC 0.000 (0.0-0.012) X10*3/uL Nucleated RBC % (auto) 0.0 (0.0-0.2) /100WBC Sodium 138 (135-145) mmol/L Potassium 4.9 (3.3-5.1) mmol/L Chloride 105 (96-108) mmol/L Carbon Dioxide 27 (22-29) mmol/L Anion Gap 11 L (12-20) BUN 13 (9-16) mg/dL Creatinine 0.78 (0.5-1.4) mg/dL Estim Creat Clear Calc 95.2 Estimated GFR > 60 Random Glucose 187 H (60-115) mg/dL Calcium 9.3 (8.4-10.2) mg/dL Urine Color Dark Yellow Urine Appearance Clear Urine pH 6.0 (5.0-9.0) Ur Specific [place] >= 1.030 H (1.005-1.025) Urine Protein 30 (1+) H (Neg-Trace) mg/dL Urine Glucose (UA) >=1000 H (Negative) mg/dL Urine Ketones 40 (Negative) mg/dL Urine Blood Negative (Negative) Urine Nitrite Negative (Negative) Ur Leukocyte Esterase Negative (Negative) Urine RBC 0-2 (0-2) /HPF Urine WBC 0-5 (0-5) /HPF Ur Squamous Epith Cells 0-2 (0-2) /HPF Urine Bacteria None Seen (None Seen) Hyaline Casts 0-2 (0-2) /LPF Urine Opiates Screen Not Detected (Not Detect) Ur Buprenorphine Scrn Not Detected (Not Detect) ng/mL Ur Oxycodone Screen Positive H (Not Detect) ng/mL Urine Methadone Screen Not Detected (Not Detect) ng/mL Urine Fentanyl Screen Not Detected (Not Detect) Ur Barbiturates Screen Not Detected (Not Detect) Ur Phencyclidine Scrn Not Detected (Not Detect) Ur Amphetamines Screen Not Detected (Not Detect) U Benzodiazepines Scrn Not Detected (Not Detect) Urine Cocaine Screen Not Detected (Not Detect) U Marijuana (THC) Screen Not Detected (Not Detect) Ethyl Alcohol < 10 mg/dL Discharge Plan Discharge Clinical Impression: Seizure disorder, Agitation Patient Disposition: Home, Self-Care Additional Instructions: You were seen and evaluated in the emergency room. You were evaluation did not require any admission to the hospital for further testing. You were seen by our neurologist who recommended discontinuing Keppra and continuing to take 500 mg of valproic acid twice a day. You were given a prescription for valproic acid. Please take as directed. Please be sure to follow up with Neurology in the next 1 week for re-evaluation. Follow up with your primary care doctor in one week as well. Return to the emergency room if you develop any new or concerning symptoms. Prescriptions: New divalproex [Depakote] 500 mg tablet,delayed release (DR/EC) 500 mg PO BID 30 Days Qty: 60 0RF No Action metformin 500 mg tablet 500 mg PO BID Qty: 60 3RF (DME) blood-glucose meter Kit See Rx Instructions .Route Qty: 1 0RF Rx Instructions: As directed (DME) blood-glucose meter [FreeStyle Lite Meter] Kit See Rx Instructions .ROUTE .MEDSUPPLY Qty: 1 0RF Rx Instructions: As directed (DME) lancets [FreeStyle Lancets] 28 gauge misc See Rx Instructions .ROUTE .MEDSUPPLY Qty: 100 3RF Rx Instructions: As directed check BS QD (DME) FreeStyle Lite Strips Strip See Rx Instructions .ROUTE .MEDSUPPLY Qty: 100 3RF Rx Instructions: As directed check the BS QD Referrals: aCrmencita Grimm MD [Physician] - 1 week Print Language: Kazakh
[2024-07-10 12:25] VITALS: BP 132/84; PULSE 94; RESP 20; O2SAT 97
[2024-07-10 14:31] LABS: MANUAL DIFF FLAG NO
[2024-07-10 14:36] LABS: Basophils Percent Auto 0.3 % (0-2); Eosinophils Absolute Auto 0.1 X10*3/uL (0.0-0.4); Eosinophils Percent Auto 2.2 % (0-4); Hematocrit 41.6 % (42.0-52.0); Hemoglobin 15.6 g/dl (14.0-18.0); Imm Gran Abs Auto 0.02 X10*3/uL (0.00-0.03); Imm Gran Pct Auto 0.3 % (0.0-0.4); Lymphocytes Absolute Auto 1.6 X10*3/uL (1.2-4.9); Lymphocytes Percent Auto 27.5 % (20-40); Mean Corpuscular HGB Conc 37.5 g/dl (31.0-36.0); Mean Corpuscular Volume 82.5 fL (80.0-98.0); Mean Platelet Volume 10.2 fL (9.4-12.4); Monocytes Absolute Auto 0.4 X10*3/uL (0.1-1.2); Monocytes Percent Auto 6.2 % (2-11); Neutrophils Absolute Auto 3.8 x10*3/uL (2.0-8.3); Neutrophils Percent Auto 63.5 % (45-73); Platelet Count 128 X10*3/uL (160-400); Red Blood Count 5.04 X10*6/uL (4.60-5.80); Red Cell Distribution Width 11.3 % (11.0-16.0)
[2024-07-10 14:50] LABS: Anion Gap 11 (12-20); Blood Urea Nitrogen 13 mg/dL (9-16); Calcium 9.3 mg/dL (8.4-10.2); Carbon Dioxide 27 mmol/L (22-29); Chloride 105 mmol/L (96-108); Creatinine Clr Calc Pharmacy 95.2; Estimated Glomerular Filt Rate > 60; Ethanol < 10 mg/dL; Glucose Random 187 mg/dL (60-115); Potassium 4.9 mmol/L (3.3-5.1); Sodium 138 mmol/L (135-145)
--- NOTE | 2024-07-10 14:57 | PC.NURSE ---
Per Dr Edwards mother states concerns violence and behaviors since pt had seizure and placed on Keppra, plan to move to [place], Tammi MARI given report
--- NOTE | 2024-07-10 17:17 | PC.NURSE ---
patient refused medications. made a section 12 by provider, seen by care team. psych consult placed.
--- NOTE | 2024-07-10 17:32 | PC.NURSE ---
pt gave verbal permission for treatment team to speak to Shonda Saenz for collateral information.
[2024-07-10 18:22] VITALS: BP 138/76; PULSE 74; RESP 16; TEMP 36.8; O2SAT 99
--- NOTE | 2024-07-10 19:17 | PC.NURSE ---
patient appears to remain at rest presently respirations are even and unlabored patient appears in no distress.
[2024-07-10] MEDS: Divalproex Sodium 500 MG TABLET.DR PO (19:57)
[2024-07-10] MEDS: metFORMIN HCl 500 MG TABLET PO (19:57)
--- NOTE | 2024-07-10 21:07 | MHC.CM.ED ---
Addendum entered by Carol Cordero 07/11/24 18:31: Pt cleared by CARE team and psych. D/C home. F/U with neurology. No need for home services. Original Note: CM received consult for this patient from Dr. Edwards. Seen by CARE team. Recommends psych consult and neurology consult. Neurology changed depakote to Keppra d/u concerns regarding keppra induced psychosis. Psych consult pending. PT does not recommend any therapy. CM will hold assessment pending psych recommendations.
--- NOTE | 2024-07-11 02:28 | PC.NURSE ---
t/w had observed client awake earlier and twice client approached phone as if he was going to make a call, client has also made some under the breath verbal statements which seem to indicate irritability. t/w pursued an order for some benadryl which client declined.
--- NOTE | 2024-07-11 02:32 | PC.NURSE ---
i plan on getting out of here
[2024-07-11 06:00] VITALS: RESP 18
[2024-07-11] MEDS: metFORMIN HCl 500 MG TABLET PO (08:34)
[2024-07-11] MEDS: Divalproex Sodium 500 MG TABLET.DR PO (08:34)
[2024-07-11 08:35] VITALS: BP 127/87; PULSE 99; RESP 16; TEMP 36.6; O2SAT 100
--- NOTE | 2024-07-11 08:35 | PC.NURSE ---
ASSUMED CARE OF PT THIS AM. HAS BEEN IN NAD, BEHAVIORS NON CONCERNING, TAKING MEDS ORDERED. VS WNL.
[2024-07-11 10:13] LABS: Appearance Urine Clear; Color Urine Dark Yellow; Glucose Urine UA >=1000 mg/dL (Negative); Leukocyte Esterase Urine Negative (Negative); Nitrite Urine Negative (Negative); Specific Gravity - Urine >= 1.030 (1.005-1.025); UMIC TRIGGER UACC YES; Urine Blood Negative (Negative); Urine Ketones 40 mg/dL (Negative); Urine Protein 30 (1+) mg/dL (Neg-Trace)
[2024-07-11 10:15] LABS: Bacteria Urine None Seen (None Seen); Hyaline Casts Urine 0-2 /LPF (0-2); RBC Urine 0-2 /HPF (0-2); Squamous Epithelial Cell Urine 0-2 /HPF (0-2); WBC Urine 0-5 /HPF (0-5)
[2024-07-11 10:31] LABS: Amphetamine Screen Urine Not Detected (Not Detect); Barbiturates, Urine Not Detected (Not Detect); Benzodiazepines Screen Urine Not Detected (Not Detect); Buprenorphine Scr Not Detected (Not Detect); Cannabinoid Screen Urine Not Detected (Not Detect); Cocaine Screen Urine Not Detected (Not Detect); Fentanyl, urine Not Detected (Not Detect); Methadone Screen, Urine Not Detected (Not Detect); Opiate Screen Urine Not Detected (Not Detect); Oxycodone Screen Urine Positive (Not Detect); Phencyclidine Screen Urine Not Detected (Not Detect)
--- NOTE | 2024-07-11 10:54 | PHA.MEDREC ---
Addendum entered by Thee Murguia RPh 07/11/24 11:00: Reviewed by [facility] Original Note: Pharmacy Consult ? Medication Reconciliation Pharmacy has completed the medication reconciliation. Spoke to patients contact on file Shonda to confirm med list. Shonda states patient is only taking Metformin 500 mg and Keppra 500 mg was changed to Depakote 500 mg due to patient having a bad reaction to Keppra.
--- NOTE | 2024-07-11 11:45 | PM.NEUROCN ---
History of Present Illness Data of Consult Service Date: 07/11/24 Primary Care Provider: MD MARQUIS Johnson Reason for consult: Acute change in mental status 58 years old man who said that he has suffered from seizure disorder for number of years but apparently had not been taking any medicine until recently when he was put on Keppra. He said that his seizures included grand-mal type. His previous EEGs and history could not be independently confirmed. He came to hospital with agitation change in behavior. Apparently an MRI of brain had been ordered as an outpatient was any acute abnormality. My impression was that his change in behavior was likely or could have been from Keppra. It was stopped and changed to valproic acid. I saw him this morning when he was comfortable and calm with no sign of agitation or confusion. Review of Systems Review of Systems: No recent fever or cold like illness. No headache. No trauma. [facility] Past Medical History Medical History Diabetes mellitus Right rib fracture Family History Family History Other Mental health disorder Surgical History Surgical History No pertinent past surgical history Social History Social History Housing: House Alcohol intake: former Comment: quit 05/2024 used to did drink a lot before Patient Tobacco Use Status: Never used Tobacco Years Smoked: marijuana Smoked in Last 30 Days: No e-Cigarette/Vaping Use: Never Used Second Hand Smoke Exposure: No Use of substances other than those prescribed or required for medical reasons: No Advance Directives: No Advance Directives Information Provided: Yes service: No Current occupational status: unemployed Current occupation: rt handed/[employer] Cognitive needs: No Hearing needs: No Vision needs: No Meds Allergies Allergy/AdvReac Type Severity Reaction Status Date / Time Seasonal Allergies Allergy itchy Verified 07/10/24 11:58 watery eyes, nasal congestion Active Medications: Current Medications Divalproex Sodium (Divalproex Sodium 500 Mg Tablet.) 500 mg PO BID BRIANA Stop: 07/12/24 23:59 Last Admin: 07/11/24 08:34 Dose: 500 mg Metformin HCl (Metformin Hcl 500 Mg Tablet) 500 mg PO BID BRIANA Stop: 07/13/24 23:59 Last Admin: 07/11/24 08:34 Dose: 500 mg Physical Exam Vital Signs: Vital Signs: Last Vital Signs Temp 98 F 07/11/24 08:35 Pulse 99 07/11/24 08:35 Resp 16 07/11/24 08:35 BP 127/87 07/11/24 08:35 Pulse Ox 100 07/11/24 08:35 O2 Del Method Room Air 07/11/24 08:35 BMI result Body Mass Index 28.1 Neuro: Other: He is alert and awake with normal spontaneity of speech fluency comprehension and affect. Face is symmetrical. Visual emery are full. Deep tendon reflexes are 1+ with flexor plantars. Balance gait and coordination are normal. Speech is normal. Affect is normal Results Labs 07/10/24 14:27 07/10/24 14:27 Labs: Short CBC 07/10/24 Range/Units 14:27 WBC 6.0 (4.8-10.8) X10*3/uL Hgb 15.6 (14.0-18.0) g/dl Hct 41.6 L (42.0-52.0) % Plt Count 128 L D (160-400) X10*3/uL BMP 07/10/24 14:27 Sodium 138 Potassium 4.9 Chloride 105 Carbon Dioxide 27 BUN 13 Creatinine 0.78 Calcium 9.3 Urine 07/11/24 Range/Units 10:06 Urine Color Dark Yellow Urine Appearance Clear Urine pH 6.0 (5.0-9.0) Ur Specific [place] >= 1.030 H (1.005-1.025) Urine Protein 30 (1+) H (Neg-Trace) mg/dL Urine Glucose (UA) >=1000 H (Negative) mg/dL His MRI of brain revealed minimal chronic microvascular ischemic changes. Assessment and Plan (1) Seizure disorder: Status: Acute 58 years old man reported history of grand mal type of seizures for number of years. He was recently started on Keppra and was brought to hospital with acute agitation type of syndrome. After stopping this medicine and starting him on valproic acid, he was come and his exam was within normal limits. No significant abnormality was noted on MRI of brain. My recommendation is to consider Keppra as 1 of his allergies, and continue valproic acid 500 mg twice a day for now. It could be tried treated further based upon clinical response Procedures Date of Service Date of Service: 07/11/24
--- NOTE | 2024-07-11 16:04 | PM.PSYCN ---
History of Present Illness Date of Service: 07/11/2024 Chief Complaint: Brain bleed? Agitation? Sources of Information: patient interviewed, chart reviewed and crisis/core team assessment reviewed HPI Narrative: Mr. Branham is a 58 year-old male who had hx of seizure but stable for some years until he had new episode on 06/18 and was started on keppra. It appears that since then he has had changes in orientation, at times confused as to what is going on, month and more suspicious, leaving the house. He was seen by neurology this morning who recommended changing keppra to depakote, given that keppra can cause psychosis, confusions. Pt seen today. He is able to tell this physician underwriter where he is and why he came here. He is oriented to month, year, and situation. He does not appear internally preoccupied. He appears much calmer and has not had any episodes of combative behaviors nor confusions. No SI/HI Past Psychiatric History: none prior [facility] Medical History Diabetes mellitus Right rib fracture Surgical History No pertinent past surgical history Diagnostics Vital Signs (24Hr): Vital Signs - 24 hr 07/10/24 18:22 07/11/24 06:00 07/11/24 08:35 Temperature 98.2 F 98 F Pulse Rate 74 99 Respiratory Rate 16 18 16 Blood Pressure 138/76 127/87 Pulse Oximetry 99 100 Oxygen Delivery Method Room Air Room Air BMI result Body Mass Index 28.1 Labs 07/10/24 14:27 07/10/24 14:27 Labs: Laboratory Results - last 48 hr 07/10/24 07/11/24 14:27 10:06 WBC 6.0 RBC 5.04 Hgb 15.6 Hct 41.6 L MCV 82.5 MCH 31.0 MCHC 37.5 H RDW 11.3 Plt Count 128 L D MPV 10.2 Immature Gran % (Auto) 0.3 Neut % (Auto) 63.5 Lymph % (Auto) 27.5 [place] % (Auto) 6.2 Eos % (Auto) 2.2 Baso % (Auto) 0.3 Lymph # (Auto) 1.6 [place] # (Auto) 0.4 Eos # (Auto) 0.1 Baso # (Auto) 0.0 Abs Immat Gran (auto) 0.02 Absolute Neuts (auto) 3.8 Absolute Nucleated RBC 0.000 Nucleated RBC % (auto) 0.0 Sodium 138 Potassium 4.9 Chloride 105 Carbon Dioxide 27 Anion Gap 11 L BUN 13 Creatinine 0.78 Estim Creat Clear Calc 95.2 Estimated GFR > 60 Random Glucose 187 H Calcium 9.3 Urine Color Dark Yellow Urine Appearance Clear Urine pH 6.0 Ur Specific [place] >= 1.030 H Urine Protein 30 (1+) H Urine Glucose (UA) >=1000 H Urine Ketones 40 Urine Blood Negative Urine Nitrite Negative Ur Leukocyte Esterase Negative Urine RBC 0-2 Urine WBC 0-5 Ur Squamous Epith Cells 0-2 Urine Bacteria None Seen Hyaline Casts 0-2 Urine Opiates Screen Not Detected Ur Buprenorphine Scrn Not Detected Ur Oxycodone Screen Positive H Urine Methadone Screen Not Detected Urine Fentanyl Screen Not Detected Ur Barbiturates Screen Not Detected Ur Phencyclidine Scrn Not Detected Ur Amphetamines Screen Not Detected U Benzodiazepines Scrn Not Detected Urine Cocaine Screen Not Detected U Marijuana (THC) Screen Not Detected Ethyl Alcohol < 10 Mental Status Exam Mental Status Exam Narrative: Appearance: wearing hospital gown, fair hygiene, in NAD Behavior: cooperative Psychomotor: no agitation or retardation noted Speech : clear, normal rate/rhythm/volume, spontaneous TP: linear TC: no psychosis or delusions, wanting to go home Mood: good Affect: congruent SI: none HI: none VH/AH: none Delusions: no overt delusional content Insight/judgement: improved x 2. memory/cog: alert, oriented x 3. grossly intact to conversational testing Medications Medications Current Medications Divalproex Sodium (Divalproex Sodium 500 Mg Tablet.) 500 mg PO BID [facility] Stop: 07/12/24 23:59 Last Admin: 07/11/24 08:34 Dose: 500 mg Metformin HCl (Metformin Hcl 500 Mg Tablet) 500 mg PO BID [facility] Stop: 07/13/24 23:59 Last Admin: 07/11/24 08:34 Dose: 500 mg Allergies Allergies Allergy/AdvReac Type Severity Reaction Status Date / Time Seasonal Allergies Allergy itchy Verified 07/10/24 11:58 watery eyes, nasal congestion Assessment & Plan Assessment & Plan (1) Confusion: Status: Acute Code(s): R41.0 - Disorientation, unspecified Plan Mr. Branham is a 58 year-old male who came with abrupt changes in orientation, seems some degree of psychosis since he was started on keppra. He was seen by neurology today and keppra has been d/[place] and he was started on depakote. He presents oriented to place, month, year and situation. No overt psychosis or delusions. Recommend discharge, advise pt to return to ED should symptoms return but at this point it does appear they were caused by keppra. PLAN 1. No need for IPLOC. 2. Follow up with neurology for tx of seizures. Total time managing care of this patient today ____ minutes.
[2024-07-11 16:59] VITALS: BP 127/87; PULSE 99; RESP 16; TEMP 36.6; O2SAT 100
[2024-07-13 13:38] LABS: Levetiracetam Keppra 25.8 mcg/mL (6.0-46.0)
== END 2024-07-11 17:00 | disposition home or self-care (01) ==
PROVIDERS: Emergency Provider Emergency Medicine; PCP Family Medicine
DX: G40.909 Epilepsy, unspecified, not intractable, without status epilepticus (principal); R41.0 Disorientation, unspecified; R45.1 Restlessness and agitation; R79.89 Other specified abnormal findings of blood chemistry; R26.81 Unsteadiness on feet; Z51.81 Encounter for therapeutic drug level monitoring; Z79.899 Other long term (current) drug therapy
CPT/HCPCS: 36415; 80048; 80177; 80307; 81001; 85025; 97161; 99284; S9485

== ENCOUNTER → 2024-07-10 13:10 | Outpatient (BNV) | payer OTHER, SELFPAY | PROVIDERS: Emergency Provider Emergency Medicine; PCP Family Medicine; Visit Provider Psychiatry & Neurology Neurology | DX: G40.909 Epilepsy, unspecified, not intractable, without status epilepticus (principal) | CPT/HCPCS: 99282 ==

== ENCOUNTER → 2024-07-10 13:10 | Outpatient (BNV) | payer OTHER, SELFPAY | PROVIDERS: Emergency Provider Emergency Medicine; PCP Family Medicine; Visit Provider Social Worker | DX: F29 Unspecified psychosis not due to a substance or known physiological condition (principal); R41.0 Disorientation, unspecified | CPT/HCPCS: 99285 ==

== ENCOUNTER 2024-07-22 08:21 | Outpatient (AMB) | payer OTHER, SELFPAY ==
--- NOTE | 2024-07-22 08:26 | MHC.PC.OV ---
Vital Signs 07/22/24 08:27 Height 5 ft 4 in Weight 155 lb 3.2 oz BMI 26.6 BP 118/82 Blood Pressure Location Lt brachial Position Sitting Pulse 76 Pulse Source Pulse Oximeter Temp 97.5 F Temp Source Oral Pulse Oximetry (%) 99 Oxygen Delivery Method Room Air Intake Visit Reasons: [facility] 07/12/24 Intake Note: Patient is here to follow-up after a visit the emergency department at [facility] on 07/12/2024 Clinic Manager Required: No Accompanied by: Friend Allergies Seasonal Allergies Allergy (Verified 07/22/24 08:37) itchy watery eyes, nasal congestion levetiracetam Adverse Reaction (Severe, Verified 07/22/24 08:37) psychosis, confusion Medication List - Last Reconciled 07/22/24 by USMAN Magaña blood sugar diagnostic (FreeStyle Lite Strips) As directed check the BS QD blood-glucose meter As directed blood-glucose meter (FreeStyle Lite Meter kit) As directed divalproex (Depakote) 500 mg PO BID 30 days lancets (FreeStyle Lancets) As directed check BS QD metformin 500 mg PO BID Tobacco use date assessed: 07/22/24 Dental Screening Dental Screen Date: 07/22/24 Did you have a dental visit in the last 12 months?: No Did you have a dental problem in the last 6 months where you did not have access to dental care?: No HPI [facility] 07/12/24 HPI Details The patinet is 58 year old male present for post [facility] visit, presenting with friend for [address] Crump, per note, patient was sent to emergency room by Dr. 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 The patient PO2 are also concerned about the patient behavioral change. Reports that he has been more aggressive and confused. Reports that the patient had a recent seizure and was started on Keppra. The patient was seen by Neurology in the hospital. Suspected that his change in behavior could have been psychosis related to Keppra. This medication was switched to Depakote 500 mg b.i.d. The patient mood seemed to stabilized. He was also evaluated by Psychiatry who cleared him for discharge. Per chart review: The re-read notes scattered punctate and minimally confluent foci of T2 signal hyperintensity within the periventricular and hemispheric deep white matter, with a nonspecific pattern. Given distribution and pattern, this could conceivably represent either small vessel ischemic changes or inflammatory demyelination. Only tiny left anterior gangliocapsular lacunar type infarct. The patient had a follow up appointment with Dr. Grimm on 07/11/2024. Per Dr. Grimm with the patient was calm, comfortable and without confusion. The patient is presenting today with his long-time friend who has been very involved in his care. Reports that he is not as agitated anymore, but continues to be confused and cannot be left alone Reports that he already saw the neurologist (Dr. Grimm) and that the patient parents were not allowed in the room They are requesting another neurology referral for a 2nd opinion Patient reports that his headache left temporal continues to be 8/10. Reports that intermittently he takes ibuprofen with some relief but has not taken it today The patient is alert, oriented to the day but not the date. The patient reports that it was 2022 and Jimmy was the president The patient friend verbalized that he has been feeling cold all the time and this not his norm PERRLA, no focal deficit noted. No ataxia, speech clear, no droop or tongdue deviation. No tremors noted. Negative Romberg [facility] Medical History Diabetes mellitus Right rib fracture Surgical History No pertinent past surgical history Family History Other Mental health disorder Social History Housing: House Alcohol intake: former Comment: quit 05/2024 used to did drink a lot before Patient Tobacco Use Status: Never used Tobacco Years Smoked: marijuana e-Cigarette/Vaping Use: Never Used Second Hand Smoke Exposure: No service: No Current occupational status: unemployed Current occupation: rt handed/[employer] Cognitive needs: No Hearing needs: No Vision needs: No Questionnaire Thrive Questionnaire Date Thrive assessed: 07/22/24 I am a: Patient What is your living situation today?: I have a steady place to live Within the past 12 months, did the food you bought not last and you didn't have the money to get more?: Never true Within the past 12 months, did you worry whether your food would run out before you got money to buy more?: Never true Do you have trouble paying for medicines?: No Do you have trouble getting transportation to medical appointments?: No Do you have trouble paying your heating and electricity bill?: No Do you have trouble taking care of your child, family member or friend?: No Do you have trouble with day-to-day activities such as bathing, preparing meals, shopping, managing finances, etc.?: No Are you currently unemployed and looking for a job?: Yes Are you interested in more education?: No Please select the resources that you would like help with: None Currently or been in a relationship where the following occur: No concerns reported THRIVE Score: 0 AUDIT C Alcohol Use Questionnaire (AUDIT-C) 1. How often do you have a drink containing alcohol?: 2-4 times a month 2. How many drinks containing alcohol do you have on a typical day when you are drinking?: 1 or 2 3. How often do you have six or more drinks on one occasion?: Never Total Score: 2 JASPREET-7 AMB Questionnaire JASPREET-7 Date JASPREET - 7 assessed: 06/30/24 Source: Developed by Drs. Contreras Edwards, Arabella Akers, Timbo Hoffman and colleagues, with an educational ernie from [employer]. Review of Systems Const Reports headache(s) (left temporal ) Eyes Denies loss of vision ENT Denies vertigo, Denies dizziness, Reports headache(s) (left temporal ) and Denies sore throat Card Denies chest pain, Denies leg edema and Denies lightheadedness Resp Denies cough, Denies hemoptysis and Denies wheezing GI Denies abdominal pain, Denies melena, Denies constipation, Denies diarrhea and Denies vomiting Denies dysuria, Denies urinary frequency and Denies urinary urgency Musc Denies arthralgias, Denies joint swelling, Denies numbness and Denies tingling Neuro Denies Abnormal speech present, Denies behavioral changes, Reports confusion (to year and president), Denies vertigo, Denies dizziness, Reports headache(s) (left temporal ), Denies focal weakness, Denies loss of vision, Denies memory loss, Denies numbness, Denies seizure-like activity and Denies tingling Psych Denies anxiety, Denies behavioral changes, Reports confusion (to and president), Denies depression, Denies memory loss and Denies panic attacks Mehrdad/Lymph Denies easy bleeding and Denies easy bruising Aller/Immun Denies wheezing Physical exam (Primary Care) Vital Signs: Last Vital Signs Temp 97.5 F 07/22/24 08:27 Pulse 76 07/22/24 08:27 BP 118/82 07/22/24 08:27 Pulse Ox 99 07/22/24 08:27 Oxygen Delivery Method Room Air 07/22/24 08:27 BMI result Body Mass Index 26.6 Tobacco/Smoking Status: Tobacco use Status Tobacco use date assessed 07/22/24 07/22/24 08:36 Patient Tobacco Use Status Never used Tobacco 07/22/24 08:36 e-Cigarette/Vaping Use Never Used 07/22/24 08:36 Thrive Assessment: Date of Thrive Assessment Date Thrive assessed 07/22/24 07/22/24 08:36 Currently or been in a relationship where the following occur: No concerns reported Const General: healthy appearing, no acute distress, alert, awake and confusion (to and president) Nutritional Appearance: well nourished Orientation/consciousness: oriented to person, oriented to place, oriented to time and confusion (to and president) HENMT Ears: TM's normal bilaterally General nose exam: Normal nasal mucous membranes and turbinates present Eyes Conjunctivae: conjunctivae normal Sclerae: sclerae normal Pupils: Equal, round and reactive pupils present Neck Neck: Yes no lymphadenopathy and Yes no JVD Thyroid: Thyroid normal Carotids: no bruits Resp Effort & Inspection: normal respiratory effort and not tachypneic Auscultation: no crackles, no rales, no rhonchi and no wheezes Cardio Rate: regular rate Rhythm: regular rhythm Heart sounds: no murmurs and normal S1 and S2 GI Palpation (GI): Soft to palpation, nontender, no hepatomegaly and no splenomegaly Auscultation: normal bowel sounds Skin General skin exam: no rashes or lesions noted and dry skin Neuro General: oriented to person, oriented to place, oriented to time, gait normal, moves all extremities, CN's II-XI intact bilaterally and confusion (to year and president) Cranial nerves: Yes Equal, round and reactive pupils present Speech: No Abnormal speech present Gait exam (Neuro): Normal gait present Motor exam (neuro): 5/5 motor strength present throughout and no tremor noted Romberg Test: Negative Extrem Right upper extremity: full ROM Left upper extremity: full ROM Right lower extremity: full ROM; no edema Left lower extremity: full ROM; no edema Psych Mental Status: mental status grossly normal Speech and movement: Normal speech and movement present Affect: normal affect Attitude: cooperative Thought process: Normal thought process present Coding Level of Care Code Est Pt Level 4 (73005) Diagnoses Confusion R41.0 Type 2 diabetes mellitus with hyperglycemia, without long-term current use of insulin E11.65 Diabetes mellitus mcc insulin use: without mcc use Seizure disorder G40.909 Time Spent (min) 39 Assessment & Plan Assessment & Plan (1) Confusion: Code(s): R41.0 - Disorientation, unspecified Category: Medical Plan: Suspected to be related to Keppra medication. Which since has been discontinued Depakote 500 mg b.i.d. started. Patient is presenting with long-time friend who is very concerned that the patient can not be left alone at home. Reports that the patient is confused and is forgetting how to do simple things. The patient was able to tell me that he was in a doctor's office and knew that it was Sunday, but thought that it was 2022 and that [place] Marquez was the president. No focal deficit noted. The patient long time friend reports that she has been the main caregiver because his parents are in their 80s. Reports that they would like another referral to Neurology for a 2nd opinion. 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 Continue metformin 500 mg b.i.d. (3) Seizure disorder: Code(s): G40.909 - Epilepsy, unspecified, not intractable, without status epilepticus Category: Medical Plan: Patient has a history of childhood seizure. According to note he has not been on any anticonvulsants and sustaining a seizure recently. He was placed on Keppra and it was noted became aggressive and easily agitated. The patient was sent to ED due to concerns for subacute to old nonhemorrhagic ischemia. The patient was evaluated in the hospital by neurologist who suspected that the patient change in behavior could have been related to psychosis from the Keppra. The medication was switched to Depakote 500mg bid; the patient agitation resolved, but per caregiver the patient confusion continues to the point he is not safe to be left by himself. She wants to know what services are available for the patient-discussed with the patient/caregiver that if he is not safe to be alone then he would need to be in a facility or get 24 hours services at home. She reports that Dr. Grimm does not think that the patient is confuse and they want another neurology referral to be placed for a second opinion. Lab order to check depakote level in two weeks and a neurology referral was placed Orders: Orders Valproate 2 Weeks G40.909 - Epilepsy, unspecified, not intractable, without status epilepticus Referrals Neurology Referral G40.909 - Epilepsy, unspecified, not intractable, without status epilepticus, R41.0 - Disorientation, unspecified
[2024-07-22 08:27] VITALS: BP 118/82; PULSE 76; TEMP 36.4; O2SAT 99; BMI 26.6
== END 2024-07-22 09:12 | disposition home or self-care (01) ==
LOC: HO.HMCH 08:22
PROVIDERS: PCP Internal Medicine
DX: R41.0 Disorientation, unspecified (principal); E11.65 Type 2 diabetes mellitus with hyperglycemia; G40.909 Epilepsy, unspecified, not intractable, without status epilepticus

== ENCOUNTER → 2024-07-22 08:21 | Outpatient (BNVA) | payer OTHER, SELFPAY | PROVIDERS: PCP Internal Medicine | DX: R41.0 Disorientation, unspecified (principal); E11.65 Type 2 diabetes mellitus with hyperglycemia; G40.909 Epilepsy, unspecified, not intractable, without status epilepticus | CPT/HCPCS: 99212 ==

== ENCOUNTER 2024-07-29 13:52 | Outpatient (REF) | payer OTHER, SELFPAY ==
[2024-07-29 18:44] LABS: Folate 6.2 ng/mL (> or = 4.0); Vitamin B12 587 pg/mL (200-900)
== END 2024-07-29 13:53 | disposition home or self-care (01) ==
LOC: HO.LAB 13:52
PROVIDERS: PCP Internal Medicine; Visit Provider Psychiatry & Neurology Neurology
DX: F10.27 Alcohol dependence with alcohol-induced persisting dementia (principal)
CPT/HCPCS: 36415; 82607; 82746

== ENCOUNTER 2024-08-13 08:58 | Outpatient (REF) | payer OTHER, SELFPAY ==
[2024-08-13 12:45] LABS: Alanine Aminotransferase 16 U/L (0-40); Albumin Level 3.6 g/dL (3.5-5.0); Alkaline Phosphatase 43 U/L (39-117); Anion Gap 12 (12-20); Aspartate Amino Transferase 20 U/L (5-37); Bilirubin Total 0.4 mg/dL (0.0-1.0); Blood Urea Nitrogen 16 mg/dL (9-16); Calcium 8.7 mg/dL (8.4-10.2); Carbon Dioxide 29 mmol/L (22-29); Chloride 105 mmol/L (96-108); Cholesterol 213 mg/dL (<200); Estimated Glomerular Filt Rate > 60; Free T4 (Free Thyroxine) 0.83 ng/dL (0.71-1.85); Glucose Random 128 mg/dL (60-115); HDL Cholesterol 49 mg/dL (>40); LDL Cholesterol Calculated 138 mg/dL (<100); Potassium 3.9 mmol/L (3.3-5.1); Sodium 142 mmol/L (135-145); Thyroid Stimulating Hormone 2.21 uIU/mL (0.32-4.0); Total Protein 5.8 g/dL (6.5-8.0); Triglycerides 134 mg/dL (<150)
[2024-08-13 12:47] LABS: Valproate 99.8 mcg/mL (50.0-100.0)
[2024-08-13 12:51] LABS: Folate 8.6 ng/mL (> or = 4.0); Prostate Specific Antigen Scr 0.35 ng/mL (<0.05-4.0); Vitamin B12 616 pg/mL (200-900)
[2024-08-13 12:54] LABS: Creatinine Urine 142.13 mg/dL
[2024-08-13 12:57] LABS: Microalbum/Creatinine Ratio Ur 53.9 ug/mg cr (<30)
== END 2024-08-13 08:59 | disposition home or self-care (01) ==
LOC: HO.WFDLDS 08:58
PROVIDERS: Visit Provider Internal Medicine
DX: E11.65 Type 2 diabetes mellitus with hyperglycemia (principal); E78.00 Pure hypercholesterolemia, unspecified; G40.909 Epilepsy, unspecified, not intractable, without status epilepticus
CPT/HCPCS: 36415; 80053; 80061; 80164; 82043; 82570; 82607; 82746; 84153; 84439; 84443

== ENCOUNTER 2024-08-22 09:20 | Outpatient (AMB) | payer OTHER, SELFPAY ==
--- NOTE | 2024-08-22 09:26 | A.OFFPC_ITS ---
Vital Signs 08/22/24 09:28 Height 5 ft 4 in Weight 163 lb BMI 28.0 BP 120/80 Blood Pressure Location Lt brachial Position Sitting Pulse 72 Pulse Source Pulse Oximeter Temp 97.3 F Temp Source Temporal Artery Scan Pulse Oximetry (%) 97 Oxygen Delivery Method Room Air Intake Visit Reasons: Yun 08/15 Intake Note: Patient is here for hospital discharge follow up. Patient was discharged from [facility] on 08/15/24. Quality Compliance Coordinator Required: No Boat Loader Helper: Present Accompanied by: Friend Allergies Seasonal Allergies Allergy (Verified 08/22/24 09:28) itchy watery eyes, nasal congestion levetiracetam Adverse Reaction (Severe, Verified 08/22/24 09:28) psychosis, confusion Medication List - Last Reconciled 08/22/24 by Angie Castañeda PA-C blood sugar diagnostic (FreeStyle Lite Strips) As directed check the BS QD blood-glucose meter As directed blood-glucose meter (FreeStyle Lite Meter kit) As directed divalproex (Depakote) 500 mg PO BID 90 days lancets (FreeStyle Lancets) As directed check BS QD metformin 500 mg PO BID Tobacco use date assessed: 08/22/24 Dental Screening Dental Screen Date: 07/22/24 HPI Yun 08/15 HPI Details 58-year-old male with past medical histo ry of hypertension, seizure disorder, diabetes mellitus and tendonitis of the left shoulder last seen 06/2024 by nurse practitioner coming in for hospital discharge follow up. In review of the notes, patient was seen in [facility] 08/13/2024 after being brought in by EMS for suspected overdose on fentanyl patch. Patient had reportedly been more aggressive and having behavioral changes since starting on Keppra.?Workup and imaging was unremarkable.?However patient was admitted for further evaluation before discharge. Presenting with confusion due to substance use disorder and management of related conditions. Was admitted to [facility] following an overdose and presented with confusion attributed to Keppra, recently replaced with Depakote, resulting in partial symptomatic improvement. 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 The patient has poorly managed Type 2 Diabetes Mellitus, evidenced by a recent A1c level of 11.6, indicating significant hyperglycemia. Living arrangements unstable due to cognitive decline, alternating between his and his partner's parents' homes. The patient is unsuitable for self-managed medication administration due to his condition. Pending appointment with [facility], considering alternative support through [facility] due to limited availability at [facility] until September 05. Denies interest in overnight rehab but acknowledges the need for daily treatment programs. [facility] Medical History Diabetes mellitus Right rib fracture Surgical History No pertinent past surgical history Family History Other Mental health disorder Social History Housing: House Alcohol intake: former Comment: quit 05/2024 used to did drink a lot before Patient Tobacco Use Status: Never used Tobacco Years Smoked: marijuana e-Cigarette/Vaping Use: Never Used Second Hand Smoke Exposure: No service: No Current occupational status: unemployed Current occupation: rt handed/[employer] Cognitive needs: No Hearing needs: No Vision needs: No Questionnaire Thrive Questionnaire Date Thrive assessed: 06/30/24 I am a: Patient What is your living situation today?: I have a steady place to live Within the past 12 months, did the food you bought not last and you didn't have the money to get more?: Never true Within the past 12 months, did you worry whether your food would run out before you got money to buy more?: Never true Do you have trouble paying for medicines?: No Do you have trouble getting transportation to medical appointments?: No Do you have trouble paying your heating and electricity bill?: No Do you have trouble taking care of your child, family member or friend?: No Do you have trouble with day-to-day activities such as bathing, preparing meals, shopping, managing finances, etc.?: No Are you currently unemployed and looking for a job?: Yes Are you interested in more education?: No Please select the resources that you would like help with: None Currently or been in a relationship where the following occur: No concerns reported THRIVE Score: 0 JASPREET-7 AMB Questionnaire JASPREET-7 Date JASPREET - 7 assessed: 06/30/24 Source: Developed by Drs. Contreras Edwards, Arabella Akers, Timbo Hoffman and colleagues, with an educational ernie from [employer]. Review of Systems Const Denies body aches, Denies chills, Denies fever(s), Denies headache(s) and Denies poor appetite Eyes Reports no additional complaints ENT Denies dizziness and Denies headache(s) Card Denies chest pain, Denies lightheadedness and Denies dyspnea Resp Denies dyspnea GI Denies nausea and Denies vomiting Reports no additional complaints Musc Reports no additional complaints and Denies abnormal gait Skin/Breast Reports system reviewed and no additional complaints, except as documented Neuro Denies abnormal gait, Denies dizziness and Denies headache(s) Psych Reports no additional complaints Physical exam (Primary Care) Vital Signs: Last Vital Signs Temp 97.3 F 08/22/24 09:28 Pulse 72 08/22/24 09:28 BP 120/80 08/22/24 09:28 Pulse Ox 97 08/22/24 09:28 Oxygen Delivery Method Room Air 08/22/24 09:28 BMI result Body Mass Index 28.0 Tobacco/Smoking Status: Tobacco use Status Tobacco use date assessed 08/22/24 08/22/24 09:28 Patient Tobacco Use Status Never used Tobacco 08/22/24 09:27 e-Cigarette/Vaping Use Never Used 08/22/24 09:27 Thrive Assessment: Date of Thrive Assessment Date Thrive assessed 06/30/24 08/22/24 09:27 Currently or been in a relationship where the following occur: No concerns reported Const General: cooperative, healthy appearing, comfortable and no acute distress Orientation/consciousness: patient oriented x3 HENMT Head: Yes normocephalic Ears: hearing grossly normal bilaterally General nose exam: Normal external nose present Eyes General: appearance normal, both eyes and all related structures Conjunctivae: conjunctivae normal Neck Neck: Yes full ROM and Yes no lymphadenopathy Resp Effort & Inspection: normal respiratory effort Auscultation: clear to auscultation bilaterally, no crackles, no rales, no rhonchi and no wheezes Cardio Rate: regular rate Rhythm: regular rhythm Skin General skin exam: no rashes or lesions noted Neuro Other: patient is oriented but does have some degree of memory/cognitive impairment General: patient oriented x3 Gait exam (Neuro): Normal gait present Extrem General: Yes normal to inspection, Yes full ROM and No edema Psych Affect: normal affect Attitude: cooperative Insight: Good insight present (Psych) Judgement: Good judgement present (Psych) Coding Level of Care Code Est Pt Level 4 (14723) Diagnoses Confusion R41.0 Substance use disorder F19.90 Type 2 diabetes mellitus with hyperglycemia, without long-term current use of insulin E11.65 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 Patient was interested in possible [facility] or assisted living. I discussed with the community navigation who spoke with the patient today about resources. (2) Substance use disorder: Code(s): F19.90 - Other psychoactive substance use, unspecified, uncomplicated Category: Medical Plan: Patient has appointment with [facility] in August to establish care for substance use disorder. Patient states he has been without substances for 1 week and without alcohol for 3 months. [facility] as well plan to reach out to their office see if we can get an earlier appointment for him. 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 Although fruits are generally healthy they should be eaten in moderation as they are still high in sugar. Hemoglobin A1c goal of less than 7%. A1c elevated at last visit plan to follow up in 2 months for repeat A1c and diabetic management. Patient has been in consistently taking his metformin 7 days taking too much. Discuss medication management and importance of compliance. (4) Seizure disorder: Code(s): G40.909 - Epilepsy, unspecified, not intractable, without status epilepticus Category: Medical Plan: Continue to follow with Dr. Grimm and continue on Depakote. Patient's last Depakote level was within normal limits. He does report mistakenly taking his Depakote 3 times in his single day. Discussed ways to prevent overdosing on Depakote including medication reminder medication dispensing machines.Continue to follow with Dr. Grimm and plan to continue to measure Depakote levels. (5) Hypertension, essential: Code(s): I10 - Essential (primary) hypertension Category: Medical Plan: Continue on current blood pressure medication. Avoid salt intake and encourage healthy diet and regular exercise. Plan Through dietary habits and potential pharmacologic adjustments. Cholesterol management involves dietary recommendations, and further pharmacotherapy will be contemplated after additional diagnostic evaluations if needed. Medication management aids like pill sorters have been encouraged due to the cognitive deceleration, while partial hospitalization through affiliated programs is being pursued. Recommendations were made to explore stable living environments, given the unsustainable current arrangements and significant health and social requirements. This note was constructed using voice recognition software. While every effort has been made to ensure accuracy and baked and graphite inspector, still areas may have been included sometimes these areas may affect the content or meeting of the given symptoms. Total time spent caring for the patient today was 30 minutes. This includes time spent before the visit reviewing the chart, time spent during the visit, and time spent after the visit and documentation. Patient was informed and verbally consented to the use of an ambient scribe for clinic note documentation during this visit. Orders: Referrals Addiction Medicine Referral F19.90 - Other psychoactive substance use, unspecified, uncomplicated, R41.0 - Disorientation, unspecified Medications: Refilled metformin 500 mg PO BID 60 tabs 3RF
[2024-08-22 09:28] VITALS: BP 120/80; PULSE 72; TEMP 36.3; O2SAT 97; BMI 28.0
== END 2024-08-22 10:26 | disposition home or self-care (01) ==
LOC: HO.HMCH 09:20
PROVIDERS: PCP Internal Medicine
DX: R41.0 Disorientation, unspecified (principal); F19.90 Other psychoactive substance use, unspecified, uncomplicated; E11.65 Type 2 diabetes mellitus with hyperglycemia; G40.909 Epilepsy, unspecified, not intractable, without status epilepticus; I10 Essential (primary) hypertension

== ENCOUNTER → 2024-08-22 09:20 | Outpatient (BNVA) | payer OTHER, SELFPAY | PROVIDERS: PCP Internal Medicine | DX: R41.0 Disorientation, unspecified (principal); F19.90 Other psychoactive substance use, unspecified, uncomplicated; E11.65 Type 2 diabetes mellitus with hyperglycemia; G40.909 Epilepsy, unspecified, not intractable, without status epilepticus; I10 Essential (primary) hypertension | CPT/HCPCS: 99212 ==

== ENCOUNTER 2024-09-01 10:13 | Outpatient (AMB) | payer OTHER, SELFPAY ==
--- NOTE | 2024-09-01 10:15 | MHC.OFFVIS ---
Vital Signs 09/01/24 10:20 Height 5 ft 4 in Weight 171 lb BMI 29.3 Pulse 89 Pulse Source Pulse Oximeter Pulse Oximetry (%) 98 Oxygen Delivery Method Room Air Intake Visit Reasons: MAT Allergies Seasonal Allergies Allergy (Verified 09/01/24 10:21) itchy watery eyes, nasal congestion levetiracetam Adverse Reaction (Severe, Verified 09/01/24 10:21) psychosis, confusion HPI HPI MAT: Details: He has OUD and is here for intake. He is not currently using and today tox screen is negative for all substances. He was taking 1/2 of 15 mg patch his friend would throw in trash after use. She was prescribed this for chronic pain syndrome. He last took this and OD on it 08/15. He reports this is the only substance he takes and it is in a hidden lock box not known to or available to him. It is not clear if friend knows he was taking it. His first use was child age 13/14 when wisdom teeth pulled (Percocet) and he didnt have cravings after or continue use. 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 He says he used Percocet 5-10 mg a day total and stopped 10 years ago but then restarted 5 years ago. He reports this OD was his only OD. He denies benzo,cocaine,current oxy and doesnt drink alcohol anymore or use tobacco products. He denies domestic violence concerns. He has no children. He has dog and peer health and wellness coach [facility]. He is not on disability. 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 He cant drive until December as long as remains seizure free.a He denies ever sharing needles. He has had recovery until 5 years ago except periods mentioned. He was in outpatient recovery 20 years ago with groups and professional and mens groups. He has a dog for companionship. He has behavioral health provider at [facility]. He has no other diagnosis He denies psychiatric hospitalization. He has seizures chronically, not clearly related to withdrawal or use. He had first seizure age 8 in 1973. He denies head injury except related to falls with seizures. He had seizure in 1989 at [facility] and was on Dilantin for six weeks. He has had EEG monitoring,negative. He had seizure in 2010. Last seizure was 06/08 and fell and hit head and is seeing Neurology evaluate for stroke as well due to memory issues related to this possibly and getting dementia workup. He has DM as well He denies h/o incarceration or pending court cases. [facility] Medical History (Updated 09/01/24 @ 13:18 by Abby Penn MD) Opioid use disorder Diabetes mellitus Right rib fracture Surgical History No pertinent past surgical history Family History Other Mental health disorder Social History Housing: House Alcohol intake: former Comment: quit 05/2024 used to did drink a lot before Patient Tobacco Use Status: Never used Tobacco Years Smoked: marijuana e-Cigarette/Vaping Use: Never Used Second Hand Smoke Exposure: No service: No Current occupational status: unemployed Current occupation: rt handed/[employer] Cognitive needs: No Hearing needs: No Vision needs: No Review of Systems Const unobtainable due to endotracheal tube Physical Exam Vital Signs: Last Vital Signs Pulse 89 09/01/24 10:20 Pulse Ox 98 09/01/24 10:20 Oxygen Delivery Method Room Air 09/01/24 10:20 BMI result Body Mass Index 29.3 Const General: cooperative Orientation/consciousness: patient oriented x3 HEENT Head: Yes normal to inspection Mouth: Normal oral and palatal mucosa present Eyes General: appearance normal, both eyes and all related structures Pupils: Equal, round and reactive pupils present Resp Effort & Inspection: normal respiratory effort Cardio Rate: regular rate Rhythm: regular rhythm GI Palpation (GI): Soft to palpation and nontender General: Yes no CVA tenderness Back/Spine/Pelvis Back: no CVA tenderness Skin General skin exam: no rashes or lesions noted Neuro General: patient oriented x3 Cranial nerves: Yes CN's II-XII intact bilaterally and Yes Equal, round and reactive pupils present Extrem General: Yes normal to inspection Psych Appearance: grossly normal Results AMB 14 Panel Urine Drug Screen Urine Marijuana (THC) Negative Last Edit by Holger Jefferson CMA on 09/01/24 10:25 Urine Cocaine Negative Last Edit by Holger Jefferson, MAUREEN on 09/01/24 10:25 Urine Morphine Negative Last Edit by Holger Jefferson, MAUREEN on 09/01/24 10:25 Urine Methamphetamine Negative Last Edit by Holger Jefferson, MAUREEN on 09/01/24 10:25 Urine Amphetamine Negative Last Edit by Holger Jefferson, MAUREEN on 09/01/24 10:25 Urine Benzodiazepine Negative Last Edit by Holger Jefferson, MAUREEN on 09/01/24 10:25 Urine Barbiturates Negative Last Edit by Holger Jefferson, MAUREEN on 09/01/24 10:25 Urine Methadone Negative Last Edit by Holger Jefferson, MAUREEN on 09/01/24 10:25 Urine Buprenorphine Negative Last Edit by Holger Jefferson, MAUREEN on 09/01/24 10:25 Urine Tricyclic Antidepressant Negative Last Edit by Holger Jefferson, MAUREEN on 09/01/24 10:25 Urine MDMA Negative Last Edit by Holger Jefferson, MAUREEN on 09/01/24 10:25 Urine Oxycodone Negative Last Edit by Holger Jefferson, MAUREEN on 09/01/24 10:25 Urine Phencyclidine Negative Last Edit by Holger Jefferson CMA on 09/01/24 10:25 Urine Propoxyphene Negative Last Edit by Holger Jefferson CMA on 09/01/24 10:25 Results Reviewed Results Reviewed: Laboratory Last Values POC Urine Buprenorphine Negative 09/01/24 10:24 POC Urine Morphine Negative 09/01/24 10:24 POC Urine Oxycodone Negative 09/01/24 10:24 POC Urine Methadone Negative 09/01/24 10:24 POC Urine Propoxyphene Negative 09/01/24 10:24 POC Urine Barbiturates Negative 09/01/24 10:24 POC U Tricyclic Antidpr Negative 09/01/24 10:24 POC Urine PCP Negative 09/01/24 10:24 POC Ur Amphetamines Negative 09/01/24 10:24 POC Ur Methamphetamine Negative 09/01/24 10:24 POC Urine MDMA Negative 09/01/24 10:24 POC Ur Benzodiazepine Negative 09/01/24 10:24 POC Urine Cocaine Negative 09/01/24 10:24 POC Ur Marijuana (THC) Negative 05/05/25 10:24 Assessment & Plan Assessment & Plan (1) Opioid use disorder: Comment: He has difficult situation in that he has seizure disorder, sedation from seizure meds is concern and also risk of OD concern for seizures and . Buprenorphine is sedating and additive risk but may help prevent him from and future overdoses. He was given information and will let us know how wishes to proceed but today he feels since he is not actively using at this time that risk of buprenorphine not worth benefit and he will let us know if this changes and I advised him how to start Suboxone if he wishes to use in future and call us or walk in [place]. He denies HIV or Hepatitis C risk but can check in future. He would benefit from PCV-20 pneumonia vaccine and meningitis vaccine (check with pharmacy) Continue recovery at [facility]. Methadone also is a possibility but drug interactions and sedation concern also. Code(s): F11.90 - Opioid use, unspecified, uncomplicated Category: Medical Plan: na (2) Confusion: Code(s): R41.0 - Disorientation, unspecified Category: Medical Plan: na (3) Type 2 diabetes mellitus with hyperglycemia: Code(s): E11.65 - Type 2 diabetes mellitus with hyperglycemia Category: Medical Qualifiers: Diabetes mellitus oil heaterman insulin use: without oil heaterman use Qualified Code(s): E11.65 - Type 2 diabetes mellitus with hyperglycemia Plan: na (4) Seizure disorder: Code(s): G40.909 - Epilepsy, unspecified, not intractable, without status epilepticus Category: Medical Plan: na Orders: Orders AMB 14 Panel Urine Drug Screen Today Z51.81 - Encounter for therapeutic drug level monitoring Coding Level of Care Code New Pt Level 4 (05413) Diagnoses Opioid use disorder F11.90 Confusion R41.0 Type 2 diabetes mellitus with hyperglycemia, without long-term current use of insulin E11.65 Diabetes mellitus oil heaterman insulin use: without oil heaterman use Seizure disorder G40.909
[2024-09-01 10:20] VITALS: PULSE 89; O2SAT 98; BMI 29.3
== END 2024-09-01 11:55 | disposition home or self-care (01) ==
PROVIDERS: PCP Internal Medicine; Visit Provider Internal Medicine
DX: F11.90 Opioid use, unspecified, uncomplicated (principal); R41.0 Disorientation, unspecified; E11.65 Type 2 diabetes mellitus with hyperglycemia; G40.909 Epilepsy, unspecified, not intractable, without status epilepticus; Z51.81 Encounter for therapeutic drug level monitoring
CPT/HCPCS: 99204

== ENCOUNTER → 2024-09-01 10:13 | Outpatient (BNVA) | payer OTHER, SELFPAY | PROVIDERS: PCP Internal Medicine; Visit Provider Internal Medicine | DX: F11.90 Opioid use, unspecified, uncomplicated (principal); R41.0 Disorientation, unspecified; E11.65 Type 2 diabetes mellitus with hyperglycemia; G40.909 Epilepsy, unspecified, not intractable, without status epilepticus; Z51.81 Encounter for therapeutic drug level monitoring | CPT/HCPCS: 80307; 99202 ==

== ENCOUNTER 2024-09-24 13:48 | Outpatient (AMB) | payer OTHER, SELFPAY ==
--- NOTE | 2024-09-24 14:02 | A.OFFVIS_ITS ---
Vital Signs 09/24/24 14:05 Height 5 ft 4 in Pulse 88 Pulse Source Pulse Oximeter Pulse Oximetry (%) 98 Oxygen Delivery Method Room Air Intake Visit Reasons: MAT Allergies Seasonal Allergies Allergy (Verified 09/24/24 14:05) itchy watery eyes, nasal congestion levetiracetam Adverse Reaction (Severe, Verified 09/24/24 14:05) psychosis, confusion HPI Comments Details: He is interested in discussing Suboxone. He feels he doesnt need it. He is not using opioids. [facility] Medical History Opioid use disorder Diabetes mellitus Right rib fracture Surgical History No pertinent past surgical history Family History Other Mental health disorder Social History Housing: House Alcohol intake: former Comment: quit 05/2024 used to did drink a lot before Patient Tobacco Use Status: Never used Tobacco Years Smoked: marijuana e-Cigarette/Vaping Use: Never Used Second Hand Smoke Exposure: No service: No Current occupational status: unemployed Current occupation: rt handed/[employer] Cognitive needs: No Hearing needs: No Vision needs: No Review of Systems Const All systems reviewed & are unremarkable except as noted in HPI and below Physical Exam Vital Signs: Last Vital Signs Pulse 88 09/24/24 14:05 Pulse Ox 98 09/24/24 14:05 Oxygen Delivery Method Room Air 09/24/24 14:05 Const General: cooperative Assessment & Plan Assessment & Plan (1) Substance use disorder: Comment: He has possible need for Suboxone in future, but he doesnt think so at this time. Code(s): F19.90 - Other psychoactive substance use, unspecified, uncomplicated Category: Medical Plan: na Coding Level of Care Code Est Pt Level 3 (93356) Diagnoses Substance use disorder F19.90
[2024-09-24 14:05] VITALS: PULSE 88; O2SAT 98
== END 2024-09-24 14:36 | disposition home or self-care (01) ==
LOC: HO.HCC 13:49
PROVIDERS: PCP Internal Medicine; Visit Provider Internal Medicine
DX: F19.90 Other psychoactive substance use, unspecified, uncomplicated (principal)
CPT/HCPCS: 99213

== ENCOUNTER → 2024-09-24 13:48 | Outpatient (BNVA) | payer OTHER, SELFPAY | PROVIDERS: PCP Internal Medicine; Visit Provider Internal Medicine | DX: F19.90 Other psychoactive substance use, unspecified, uncomplicated (principal); Z51.81 Encounter for therapeutic drug level monitoring | CPT/HCPCS: 99212 ==

== ENCOUNTER 2024-11-27 12:35 | Outpatient (AMB) | payer OTHER, SELFPAY ==
--- NOTE | 2024-11-27 12:44 | MHC.OFFVIS ---
Intake Visit Reasons: 3 mnts f/u Allergies Seasonal Allergies Allergy (Verified 09/24/24 14:05) itchy watery eyes, nasal congestion levetiracetam Adverse Reaction (Severe, Verified 09/24/24 14:05) psychosis, confusion HPI Comments Details: 59 yo ambidextrous man with generalized seizure disorder. (Initially seen in July 2024: With no medical issues at or end stapler, reported having a grand mal seizure at age 5, in first grade. There was no family h/o seizure and no prior head injury. He had one or two more episodes after which he was put on Dilantin, which he took for a few years. Another seizure happened when he was 24 and he was put on Dilantin again, which he took for a few more years. EEGs were done by Dr. Reich at [facility]. He stopped taking Dilantin many years ago. He had another seizure in May, when he woke up in a pool of glass as he had crashed into bunch of glasses on the table. This time, he was put on Keppra, which resulted in behavioral side effects bringing him to [facility] ER. Keppra was stopped and it was switched to Depakote, which he has been taking. There was no warning or aura for seizure. Seizure including LOC, generalized convulsions and rarely tongue bite.) Depakote has been working out and he did not have any further spells. There was no significant side-effect either. His vitamin B12 and folate levels were normal. [facility] Medical History (Updated 11/27/24 @ 12:47 by Carmencita Grimm MD) Seizure disorder Alcoholic dementia Cerebellar atrophy Encephalopathy Generalized seizure disorder Opioid use disorder Diabetes mellitus Right rib fracture Surgical History No pertinent past surgical history Family History Other Mental health disorder Social History Housing: House Alcohol intake: former Comment: quit 05/2024 used to did drink a lot before Patient Tobacco Use Status: Never used Tobacco Years Smoked: marijuana e-Cigarette/Vaping Use: Never Used Second Hand Smoke Exposure: No service: No Current occupational status: unemployed Current occupation: rt handed/[employer] Cognitive needs: No Hearing needs: No Vision needs: No Review of Systems Const Details: Constitutional:?No fever, chills, fatigue, weight loss, or night sweats. HEENT:?No headache, vision changes, hearing loss, nasal congestion, sore throat. Neurological:?No dizziness, syncope, seizures, numbness, tingling, weakness, tremors, memory loss. Psychiatric:?No anxiety, depression, mood swings, sleep disturbance, or hallucinations. Endocrine:?No heat/cold intolerance, polydipsia, polyuria, or hair/skin changes. Hematologic/Lymphatic:?No easy bruising, bleeding, or lymphadenopathy. Integumentary (Skin):?No rash, lesions, itching, or color changes. ? Physical Exam Neuro Other: Mental Status: Alert and oriented to person, place, and time. Normal attention. Normal spontaneous speech, fluency, and comprehension. No obvious issues with mood and memory. Affect is appropriate. Cranial Nerves: CN II: Visual emery full to confrontation, visual acuity intact. CN III, IV, : Pupils equal, round, reactive to light and accommodation. Extraocular movements are normal. CN V: Facial sensation is normal. CN VII: Facial movements symmetrical. CN VIII: Hearing intact to bedside conversation is normal. CN IX, X: Palate elevates symmetrically. CN XI: Shoulder shrug and head turn symmetrical. CN XII: Tongue midline without atrophy or fasciculations. Extrapyramidal: Full facial expressions and blinking. No rigidity. Movements are appropriate with no tremor or abnormality. Speech: Normal; no dysarthria or tremor. Assessment & Plan Assessment & Plan (1) Seizure disorder: Comment: CT brain WO at [facility] in May 2024: Mod cerebellar atrophy EEG at off in Jun 2024: WNL MRI brain WO at [facility] in Jun 2024: Mild to mod cerebellar atrophy, mild to mod MVD Code(s): G40.909 - Epilepsy, unspecified, not intractable, without status epilepticus Category: Medical Plan Impression: a: Generalized seizure disorder b: H/o alcohol drinking and exoposure to dilantin with brain CT revealing cerebellar atrophy but no signifcant physical symptoms Rec: Depakote 500mg bid Coding Level of Care Code Tele Est Pt Level 4 (80831) Diagnoses Seizure disorder G40.909
== END 2024-11-27 14:05 | disposition home or self-care (01) ==
LOC: HO.HSM 12:36
PROVIDERS: PCP Internal Medicine; Visit Provider Psychiatry & Neurology Neurology
DX: G40.909 Epilepsy, unspecified, not intractable, without status epilepticus (principal)
CPT/HCPCS: 99214

== ENCOUNTER 2024-12-06 09:21 | Outpatient (AMB) | payer OTHER, SELFPAY ==
[2024-12-06 09:45] VITALS: BP 120/82; PULSE 85; RESP 18; TEMP 36.7; O2SAT 98; BMI 29.9
--- NOTE | 2024-12-06 09:45 | AM.OFFWIN_ITS ---
Intake Vital Signs 12/06/24 09:45 Height 5 ft 4 in Weight 174 lb BMI 29.9 BP 120/82 Blood Pressure Location Lt brachial Position Sitting Respiration 18 Pulse 85 Pulse Source Pulse Oximeter Temp 98.0 F Temp Source Oral Pulse Oximetry (%) 98 Oxygen Delivery Method Room Air Intake Visit Reasons: EP-Dizziness, Vertigo? Intake Note: Pt is here today for a walk in visit. Pt c/o dizziness vertigo and L side neck pain. Patient Tobacco Use Status: Never used Tobacco Allergies Seasonal Allergies Allergy (Verified 12/11/24 13:05) itchy watery eyes, nasal congestion levetiracetam Adverse Reaction (Severe, Verified 12/11/24 13:05) psychosis, confusion HPI EP-Dizziness, Vertigo? HPI Details Patient is a 59-year-old male with a significant history of long-term alcohol abuse and opioid use disorder, who overdosed about 4 months ago and was treated at a [facility] program. 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 However he has had a few episodes now where he gets lightheaded and near syncopal while walking. He is still able to be very active on his bike, however. There is no room spinning or vertigo sensation, more of a lightheaded dizziness experience. He reports that this morning he also had some left-sided neck pain to the anterior lateral area, that has since resolved. No further pain as of today to the neck. He denies chest pain, shortness of breath, cough or respiratory symptoms, nausea vomiting or diarrhea, fatigue, myalgias or malaise, palpitations, or other significant associated symptoms. [facility] Medical History Seizure disorder Alcoholic dementia Cerebellar atrophy Encephalopathy Generalized seizure disorder Opioid use disorder Diabetes mellitus Right rib fracture Surgical History No pertinent past surgical history Family History Father CAD (coronary artery disease) Other Mental health disorder Social History Housing: House Alcohol intake: former Comment: quit 05/2024 used to did drink a lot before Patient Tobacco Use Status: Never used Tobacco Years Smoked: marijuana e-Cigarette/Vaping Use: Never Used Second Hand Smoke Exposure: No service: No Current occupational status: unemployed Current occupation: rt handed/[employer] Cognitive needs: No Hearing needs: No Vision needs: No Review of Systems Const All systems reviewed & are unremarkable except as noted in HPI and below Physical Exam Vital Signs: Last Vital Signs Temp 98.0 F 12/06/24 09:45 Pulse 85 12/06/24 09:45 Resp 18 12/06/24 09:45 BP 120/82 12/06/24 09:45 Pulse Ox 98 12/06/24 09:45 Oxygen Delivery Method Room Air 12/06/24 09:45 BMI result Body Mass Index 29.9 Const General: cooperative, healthy appearing, comfortable, no acute distress, alert, awake, Physically active and well groomed; No anxious, diaphoretic, ill appearing, intoxicated appearing, poor hygiene or tired appearing Nutritional Appearance: average body habitus Orientation/consciousness: oriented to person Limitations: no limitations HEENT Head: Yes normal to inspection, Yes normocephalic and Yes atraumatic Ears: hearing grossly normal bilaterally, external ears normal, TM's normal bilaterally and EAC's normal General nose exam: Normal external nose present, Normal nares present, Normal nasal mucous membranes and turbinates present, Normal septum present and No nasal discharge present Face and sinus: Yes normal facial exam, Yes sinuses nontender and Yes face symmetric Mouth: Normal oral and palatal mucosa present, lip normal and tongue normal Throat: Yes posterior oropharynx normal, No peritonsillar mass, No postnasal drainage, No uvular edema and No cobblestoning Eyes General: appearance normal, both eyes and all related structures Neck Neck: Yes normal visual inspection, Yes full ROM, Yes no lymphadenopathy, Yes trachea midline, Yes supple, No anterior neck swelling and Yes no JVD Carotids: pulses diminished and no bruits Chest Chest palpation & inspection: normal palpation of entire chest wall Resp Effort & Inspection: normal respiratory effort, able to speak in complete sentences, no audible wheezes, no cough, no grunting, not labored, no nasal flaring, no retractions and symmetric chest movement Auscultation: clear to auscultation bilaterally, no crackles, no rales, no rhonchi, no wheezes, lung sounds not diminished and No rub present Cardio Rate: regular rate Rhythm: regular rhythm Heart sounds: S1 normal heart sound present and S2 normal heart sound present Skin Other: Good color, warm and dry Neuro General: oriented to person Psych Appearance: grossly normal Mental Status: mental status grossly normal Speech and movement: Normal speech and movement present Affect: normal affect Attitude: cooperative Thought process: Normal thought process present Insight: Good insight present (Psych) Judgement: Good judgement present (Psych) Results Reviewed Results Reviewed: Twelve lead EKG shows normal sinus rhythm with no ST changes. Assessment & Plan Assessment & Plan (1) Lightheadedness: Code(s): R42 - Dizziness and giddiness Plan: Patient is a 59-year-old male with a significant history of long-term alcohol abuse and opioid use disorder with a few weeks of episodes of lightheaded dizziness and near-syncope, usually with walking, however he can exert himself on his bike with no issues. He had a short episode of associated left-sided neck pain to the anterolateral area that has since resolved, and he is currently asymptomatic. His 12 lead EKG is nondiagnostic for STEMI, however I told him that I can not completely rule out an acute coronary syndrome with a 12 lead, and he understood this. He did not want to be evaluated at the emergency department at this point, however I advised that he consider going to the ED if another episode occurs, and he was amenable to this. In the meantime, I advised he talk with PCP to discuss imaging of the carotids and other further testing to rule out underlying etiology for his episodes. He is high-risk for atherosclerosis due to his lifestyle of long-term substance abuse. Orders: Orders AMB EKG-In Office 12/06/24 R42 - Dizziness and giddiness Coding Level of Care Code Est Pt Level 4 (24012) Diagnoses Lightheadedness R42
== END 2024-12-06 11:10 | disposition home or self-care (01) ==
LOC: HO.HMCWIC 09:21
PROVIDERS: PCP Internal Medicine; Visit Provider Physician Assistant Medical
DX: R42 Dizziness and giddiness (principal)

== ENCOUNTER → 2024-12-06 09:21 | Outpatient (BNVA) | payer OTHER, SELFPAY | PROVIDERS: PCP Internal Medicine; Visit Provider Physician Assistant Medical | DX: R42 Dizziness and giddiness (principal) | CPT/HCPCS: 99212 ==

== ENCOUNTER 2024-12-09 14:31 | Emergency (ER) | payer OTHER, SELFPAY ==
--- NOTE | ~2024-12-09 | CT_ITS ---
CLINICAL HISTORY: mid scapular severe pain w exertion --- Additional Notes or Special Instructions: ON METFORMIN CT angiography chest with contrast. MIP postprocessing. Comparison: CT/HI/SR - CT ABDOMEN PELVIS WITH IV CONTRAST - 06/25/24 13:15 EST Findings: There is appropriate contrast opacification of the main, lobar, and segmental pulmonary arteries. No filling defects identified to suggest pulmonary embolism. Thoracic aorta is nonaneurysmal. Hypertrophy of the left ventricular wall interventricular septum is evident. Coronary artery calcifications are evident. No pathologically enlarged mediastinal, hilar, or axillary lymph nodes are identified. No infiltrates are seen within the lungs. No pleural effusion or pneumothorax. No free fluid or free air seen within the upper abdomen. Low-attenuation throughout the liver is indicative of fatty infiltration. No acute bony finding. IMPRESSION: 1. No pulmonary embolus. 2. No acute infiltrate. 3. Coronary artery calcifications with left ventricular hypertrophy. This document has been electronically signed by: Paddy Jaquez MD on 12/09/2024 18:24:14
[2024-12-09 14:35] VITALS: BP 126/92; PULSE 92; RESP 17; TEMP 36.3; O2SAT 97; BMI 29.8
--- NOTE | 2024-12-09 14:35 | ED_ITS ---
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 No exertional chest pain or other symptoms when doing his daily 15 mi bike ride. Occasional has discomfort in the left anterior side of the neck and scattered intermittent discomfort occasionally at night lasting sec of the right anterior chest. Related Data Previous Rx's ?Medication ?Instructions ?Recorded blood-glucose meter #1 ea 06/25/24 blood sugar diagnostic (FreeStyle #100 ea 06/30/24 Lite Strips) lancets 28 gauge (FreeStyle #100 ea 06/30/24 Lancets) divalproex 500 mg tablet,delayed 500 mg PO BID 90 days #180 tabs 11/03/24 release (Depakote) metformin 500 mg tablet 500 mg PO BID #60 tabs 11/18 blood-glucose meter (FreeStyle #1 ea 11/30/24 Lite Meter kit) Allergies Allergy/AdvReac Type Severity Reaction Status Date / Time Seasonal Allergies Allergy itchy Verified 12/09/24 14:38 watery eyes, nasal congestion levetiracetam AdvReac Severe psychosis, Verified 12/09/24 14:38 confusion PMFSH Past Medical History Medical History Seizure disorder Alcoholic dementia Cerebellar atrophy Encephalopathy Generalized seizure disorder Opioid use disorder Diabetes mellitus Right rib fracture Surgical History No pertinent past surgical history Family History Family History Other Mental health disorder Social History Social History Housing: House Alcohol intake: former Comment: quit 05/2024 used to did drink a lot before Patient Tobacco Use Status: Never used Tobacco Years Smoked: marijuana e-Cigarette/Vaping Use: Never Used Second Hand Smoke Exposure: No service: No Current occupational status: unemployed Current occupation: rt handed/[employer] Cognitive needs: No Hearing needs: No Vision needs: No Physical Exam ED Exam Exam: EXAM: Gen: Alert, awake, well appearing, well hydrated. Head: Atraumatic Eyes: Anicteric, Normal conjunctiva. ENT: Moist mucosa, no pallor. ? Neck: Supple. No masses or asymmetry. Trachea midline Skin: ?No observable rash or bruising on exposed or examined skin Respiratory: Breathing comfortably, No distress.Clear to auscultation bilaterally, symmetric chest expansion, No wheeze, rales, ronchi. Cardiovascular: Regular rate and rhythm. No murmurs or rub. Well perfused periphery, warm extremities. No edema. ?Symmetric upper and lower extremity pulses no edema. No carotid bruit Abdominal: No focal tenderness. Soft, no objective distension. No palpable masses or obvious organomegaly. ?No guarding, no rebound tenderness or other peritoneal findings. : No flank tenderness. Neuro: Alert. Gross movement of all extremities intact. ? Psych: Calm. Cooperative. MSK: No grossly visible deformity. No tenderness in the paraspinal thoracic musculature normal back Vital signs: See flowsheet Vital Signs: Vital Signs - 24 hr 12/09/24 14:35 12/09/24 16:55 12/09/24 17:49 Temperature 97.3 F 97.9 F Pulse Rate 92 80 81 Respiratory Rate 17 14 14 Blood Pressure 126/92 H 125/82 129/81 Pulse Oximetry 97 96 100 Oxygen Delivery Method Room Air Room Air Room Air 12/09/24 19:12 Temperature 97.9 F Pulse Rate 81 Respiratory Rate 14 Blood Pressure 129/81 Pulse Oximetry 100 Oxygen Delivery Method Room Air BMI result Body Mass Index 29.8 Course Course Course Narrative: Rapid medical examination performed in triage by Roberta Newberry PA-C. Patient is a 59 year old assigned male at presenting to the emergency department with lightheadedness. Patient states he has had much worse lightheadedness over the last 2 weeks. Detailed physical exam and review of systems are deferred to the information technology instructor. EKG, labs, imaging, swabs ordered. Patient placed back in the waiting room pending room availability and results. 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 Medications Administered Discontinued Medications Generic Name Dose Route Start Last Admin Trade Name Hernan PRN Reason Stop Dose Admin Iohexol 100 ml 12/09/24 17:42 12/09/24 17:45 Iohexol 350 Mg/Ml 100 Ml Infus..Btl IV 12/09/24 17:43 70 ml ONCE ONE Administration Procedures Procedure Narrative Procedure Narrative: EMERGENCY ULTRASOUND INTERPRETATION-Limited Echocardiography [This study was ordered, performed, and interpreted by myself. The study reveals: Impression: NORMAL LV FUNCTION, NO RV DYSFUNCTION, NO PERICARDIAL EFFUSION] [Emergent Cardiac for Indication: Views Used: PLAX, PSSA, A4, SX, IVC Pericardial Effusion/Tamponade Findings: NONE RV Dilation (> LV diam in 4ch apical): NONE Global LV Fxn: NORMAL IVC Dilation and Resp Variation: NORMAL Additional images: Visualized portions of the carotid without dissection or obvious stenosis Performed by: MD Santiago Images were stored CPT:86963] Medical Decision Making Medical Decision Making MDM Narrative: Medical Decision Makin-year-old male with atypical and chronic recurrent symptoms mostly described as a twisting pain between the scapula only during the early parts of exertion in referring soccer games. This is going on weeks and/or months. Occasionally he has 1-2 seconds of anterior chest discomfort when laying in bed at night and occasional discomfort in the left side of the anterior neck without injuries. No cough hemoptysis history of known CAD or ACS. He does however bike daily 15 miles and never has pain when he does this. No neuro symptoms. Preliminary Favored Differential Diagnosis: Musculoskeletal etiology, dissection, atypical angina, intrathoracic arterial dissection among additional considered etiologies Testing Interpreted Independently: ECG: Sinus rhythm rate 88 QTC 442, no ischemic changes normal axis Radiology or Lab testing Results Reviewed: Not Applicable CT: IMPRESSION: 1. No pulmonary embolus. 2. No acute infiltrate. 3. Coronary artery calcifications with left ventricular hypertrophy. Consults: Not Applicable Independent Historians/External Chart Reviews: Not Applicable Social Determinants of Health Impacting MDM/Planning: Not Applicable Lab Data 12/09/24 15:05 12/09/24 15:05 Labs: Lab Results 12/09/24 12/09/24 Range/Units 15:05 17:08 WBC 6.6 (4.8-10.8) X10*3/uL RBC 5.10 (4.60-5.80) X10*6/uL Hgb 15.9 (14.0-18.0) g/dl Hct 43.5 (42.0-52.0) % MCV 85.3 (80.0-98.0) fL MCH 31.2 (27.0-33.0) pg MCHC 36.6 H (31.0-36.0) g/dl RDW 12.1 (11.0-16.0) % Plt Count 107 L (160-400) X10*3/uL MPV 9.3 L (9.4-12.4) fL Immature Gran % (Auto) 0.6 H (0.0-0.4) % Neut % (Auto) 60.5 (45-73) % Lymph % (Auto) 27.5 (20-40) % Iron % (Auto) 8.0 (2-11) % Eos % (Auto) 2.9 (0-4) % Baso % (Auto) 0.5 (0-2) % Lymph # (Auto) 1.8 (1.2-4.9) X10*3/uL Iron # (Auto) 0.5 (0.1-1.2) X10*3/uL Eos # (Auto) 0.2 (0.0-0.4) X10*3/uL Baso # (Auto) 0.0 (0.0-0.2) X10*3/uL Abs Immat Gran (auto) 0.04 H (0.00-0.03) X10*3/uL Absolute Neuts (auto) 4.0 (2.0-8.3) x10*3/uL Absolute Nucleated RBC 0.000 (0.0-0.012) X10*3/uL Nucleated RBC % (auto) 0.0 (0.0-0.2) /100WBC PT 11.2 (10.9-12.4) SEC INR 1.0 (0.9-1.1) Sodium 140 (135-145) mmol/L Potassium 4.3 (3.3-5.1) mmol/L Chloride 104 (96-108) mmol/L Carbon Dioxide 25 (22-29) mmol/L Anion Gap 15 (12-20) BUN 25 H (9-16) mg/dL Creatinine 1.06 (0.5-1.4) mg/dL Estim Creat Clear Calc 71.1 Estimated GFR > 60 Random Glucose 120 H (60-115) mg/dL Calcium 9.0 (8.4-10.2) mg/dL Magnesium 1.8 (1.6-2.6) mg/dL Total Bilirubin 0.4 (0.0-1.0) mg/dL AST 30 (5-37) U/L ALT 25 (0-40) U/L Alkaline Phosphatase 56 (39-117) U/L Troponin I High Sens 14.5 D 16.0 (<3.5-35.0) ng/L B-Natriuretic Peptide 27 (<100) pg/mL Total Protein 6.5 (6.5-8.0) g/dL Albumin 4.2 (3.5-5.0) g/dL Influenza Type A (PCR) NEGATIVE (Negative) Influenza Type B (PCR) NEGATIVE (Negative) RSV RNA Qual (PCR) NEGATIVE (Negative) SARS-CoV-2 RNA (RT-PCR) NEGATIVE (Negative) Discharge Plan Discharge Clinical Impression: Back pain Patient Disposition: Home, Self-Care Instructions: Back Pain (ED) Additional Instructions: _ DISCHARGE DIAGNOSES: Mid upper back pain chronic unclear cause Coronary artery calcifications may need further workup, left ventricular hypertrophy may need outpatient workup HISTORY OF PRESENTATION: ?Mid upper back pain and chest pain intermittently chronic EMERGENCY DEPARTMENT COURSE,TESTS, TREATMENTS: While in the ED today you had a CT scan of the aorta chest with no abnormalities you had an point of care ultrasound bedside echo of your heart with no gross structural abnormalities DISCHARGE MEDICATIONS: ?[We have made no changes to your regular medication regimen] FOLLOW-UP: ?Call your primary or general physician soon as possible to discuss your symptoms, your ED visit and to discuss follow up plans Call your primary doctor for follow up INSTRUCTIONS ?& RETURN PRECAUTIONS: If any symptoms change first call your primary physician, if it is after-hours your primary doctors office should have a provider animation producer you can speak with. If the symptoms are severe or very concerning to you then call 911 or return to the ED. CT showedIMPRESSION: 1. No pulmonary embolus. 2. No acute infiltrate. 3. Coronary artery calcifications with left ventricular hypertrophy. Matt Henderson MD Emergency Physician [facility] Prescriptions: No Action divalproex [Depakote] 500 mg tablet,delayed release (DR/EC) 500 mg PO BID 90 Days Qty: 180 0RF metformin 500 mg tablet 500 mg PO BID Qty: 60 3RF (DME) blood-glucose meter [FreeStyle Lite Meter] Kit See Rx Instructions .ROUTE .MEDSUPPLY Qty: 1 0RF Rx Instructions: As directed (DME) blood-glucose meter Kit See Rx Instructions .Route Qty: 1 0RF Rx Instructions: As directed (DME) lancets [FreeStyle Lancets] 28 gauge misc See Rx Instructions .ROUTE .MEDSUPPLY Qty: 100 3RF Rx Instructions: As directed check BS QD (DME) FreeStyle Lite Strips Strip See Rx Instructions .ROUTE .MEDSUPPLY Qty: 100 3RF Rx Instructions: As directed check the BS QD Interventions: ED Discharge Assessment Last Done: 12/09/24 19:12 Discharge Date/Time: 12/09/24 19:12 Print Language: German
--- NOTE | 2024-12-09 14:36 | ECG_ITS ---
Test Reason : lighted headness Blood Pressure : */* mmHG Vent. Rate : 88 BPM Atrial Rate : 88 BPM P-R Int : 160 ms QRS Dur : 90 ms QT Int : 366 ms P-R-T Axes : 27 -35 0 degrees QTcB Int : 442 ms Normal sinus rhythm Left axis deviation Abnormal ECG When compared with ECG of 25-Jun-2024 10:38, Criteria for Inferior infarct are no longer Present Nonspecific T wave abnormality now evident in Lateral leads Referred By: Roberta Newberry Electronically Signed By: Chapincito Rojas
[2024-12-09 15:16] LABS: MANUAL DIFF FLAG NO
[2024-12-09 15:20] LABS: Hematocrit 43.5 % (42.0-52.0); Hemoglobin 15.9 g/dl (14.0-18.0); Imm Gran Abs Auto 0.04 X10*3/uL (0.00-0.03); Imm Gran Pct Auto 0.6 % (0.0-0.4); Lymphocytes Absolute Auto 1.8 X10*3/uL (1.2-4.9); Mean Corpuscular HGB Conc 36.6 g/dl (31.0-36.0); Mean Corpuscular Hemoglobin 31.2 pg (27.0-33.0); Mean Corpuscular Volume 85.3 fL (80.0-98.0); NRBC Abs Auto 0.000 X10*3/uL (0.0-0.012); NRBC Pct Auto 0.0 /100WBC (0.0-0.2); Platelet Count 107 X10*3/uL (160-400); Red Blood Count 5.10 X10*6/uL (4.60-5.80); White Blood Count 6.6 X10*3/uL (4.8-10.8)
[2024-12-09 15:25] LABS: INTERNATIONAL NORM RATIO 1.0 (0.9-1.1); Prothrombin Time 11.2 SEC (10.9-12.4)
[2024-12-09 15:32] LABS: Alanine Aminotransferase 25 U/L (0-40); Albumin Level 4.2 g/dL (3.5-5.0); Alkaline Phosphatase 56 U/L (39-117); Anion Gap 15 (12-20); Aspartate Amino Transferase 30 U/L (5-37); Blood Urea Nitrogen 25 mg/dL (9-16); Calcium 9.0 mg/dL (8.4-10.2); Carbon Dioxide 25 mmol/L (22-29); Chloride 104 mmol/L (96-108); Creatinine Clr Calc Pharmacy 71.1; Estimated Glomerular Filt Rate > 60; Magnesium 1.8 mg/dL (1.6-2.6); Potassium 4.3 mmol/L (3.3-5.1); Sodium 140 mmol/L (135-145); Total Protein 6.5 g/dL (6.5-8.0)
[2024-12-09 15:39] LABS: Troponin-I High Sensitivity 14.5 ng/L (<3.5-35.0)
[2024-12-09 15:54] LABS: Resp Syncy Virus RNA Qual PCR NEGATIVE (Negative); SARS COV2 PCR INHOUSE NEGATIVE (Negative)
[2024-12-09 16:20] LABS: B Type Natriuretic Peptide 27 pg/mL (<100)
[2024-12-09 16:55] VITALS: BP 125/82; PULSE 80; RESP 14; O2SAT 96
[2024-12-09 17:43] LABS: Troponin-I High Sensitivity 16.0 ng/L (<3.5-35.0)
[2024-12-09] MEDS: iohexoL 350 MG/ML 100 ML INFUS..BTL IV (17:45)
[2024-12-09 17:49] VITALS: BP 129/81; PULSE 81; RESP 14; TEMP 36.6; O2SAT 100
[2024-12-09 19:12] VITALS: BP 129/81; PULSE 81; RESP 14; TEMP 36.6; O2SAT 100
== END 2024-12-09 19:12 | disposition home or self-care (01) ==
PROVIDERS: Physician Assistant Medical; Emergency Provider Emergency Medicine; PCP Internal Medicine
DX: M54.50 Low back pain, unspecified (principal); R42 Dizziness and giddiness; M54.2 Cervicalgia; R94.31 Abnormal electrocardiogram [ECG] [EKG]; M54.6 Pain in thoracic spine; R06.02 Shortness of breath; Z03.818 Encounter for observation for suspected exposure to other biological agents ruled out; Z79.899 Other long term (current) drug therapy
CPT/HCPCS: 36415; 71275; 80053; 83735; 83880; 84484; 85025; 85610; 87637; 93005; 93308; 99284; Q9967

== ENCOUNTER → 2024-12-09 14:36 | Outpatient (BNV) | payer OTHER, SELFPAY | PROVIDERS: Emergency Provider Emergency Medicine; PCP Internal Medicine; Visit Provider Internal Medicine Cardiovascular Disease | DX: R94.31 Abnormal electrocardiogram [ECG] [EKG] (principal); R42 Dizziness and giddiness | CPT/HCPCS: 93010 ==

== ENCOUNTER → 2024-12-09 17:23 | Outpatient (BNV) | payer OTHER, SELFPAY | PROVIDERS: Emergency Provider Emergency Medicine; PCP Internal Medicine; Visit Provider Radiology Diagnostic Radiology | DX: I25.84 Coronary atherosclerosis due to calcified coronary lesion (principal); I51.7 Cardiomegaly | CPT/HCPCS: 71275 ==

== ENCOUNTER 2024-12-11 12:52 | Outpatient (AMB) | payer OTHER, SELFPAY ==
--- NOTE | 2024-12-11 12:56 | MHC.PC.OV ---
Vital Signs 12/11/24 12:57 Height 5 ft 4 in Weight 173 lb 2 oz BMI 29.7 BP 124/90 H Blood Pressure Location Lt brachial Position Sitting Pulse 67 Pulse Source Pulse Oximeter Pulse Oximetry (%) 99 Oxygen Delivery Method Room Air Intake Visit Reasons: Follow up from walk-in, requesting US Broadcast Maintenance Engineer Required: No Accompanied by: Self / Same As Patient Allergies Seasonal Allergies Allergy (Verified 12/11/24 13:05) itchy watery eyes, nasal congestion levetiracetam Adverse Reaction (Severe, Verified 12/11/24 13:05) psychosis, confusion Medication List - Last Reconciled 12/11/24 by Angie Castañeda PA-C blood sugar diagnostic (FreeStyle Lite Strips) As directed check the BS QD blood-glucose meter As directed blood-glucose meter (FreeStyle Lite Meter kit) As directed divalproex (Depakote) 500 mg PO BID 90 days lancets (FreeStyle Lancets) As directed check BS QD metformin 500 mg PO BID Tobacco use date assessed: 12/11/24 Dental Screening Dental Screen Date: 12/11/24 Did you have a dental visit in the last 12 months?: No Did you have a dental problem in the last 6 months where you did not have access to dental care?: No Was dental information given to patient?: No HPI Follow up from walk-in, requesting US HPI Details 59-year-old male with past medical history of hypertension, diabetes mellitus, seizure disorder, substance use disorder and alcoholic dementia last seen 08/22 coming in for acute problem.?In review of the notes, patient was seen in the walk-in clinic for lightheadedness and dizziness workup was negative and advised to follow up with PCP.?He is also seen in [facility] ED 12/09/2024 for lightheadedness workup was negative patient was advised to follow up with PCP.?His CT did show coronary artery calcifications with left ventricular hypertrophy recommended outpatient workup.? Presenting with dizziness and back pain. 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 Reports no dyspnea but experiences sharp, tension-like back pain behind the scapulae, resolving after dizziness subsides. Can ride a stationary bike for 10 miles without symptoms, indicating dizziness is not consistently triggered by exertion. ER visit included a chest CTA, negative for blockages but showed coronary artery calcifications and ventricular hypertrophy. History of seizure disorder, managed with Depakote, follows up with neurology annually. [facility] Medical History Seizure disorder Alcoholic dementia Cerebellar atrophy Encephalopathy Generalized seizure disorder Opioid use disorder Diabetes mellitus Right rib fracture Surgical History No pertinent past surgical history Family History Other Mental health disorder Social History Housing: House Alcohol intake: former Comment: quit 05/2024 used to did drink a lot before Patient Tobacco Use Status: Never used Tobacco Years Smoked: marijuana e-Cigarette/Vaping Use: Never Used Second Hand Smoke Exposure: No service: No Current occupational status: unemployed Current occupation: rt handed/[employer] Cognitive needs: No Hearing needs: No Vision needs: No Questionnaire Thrive Questionnaire Date Thrive assessed: 12/11/24 I am a: Patient What is your living situation today?: I have a steady place to live Within the past 12 months, did the food you bought not last and you didn't have the money to get more?: Never true Within the past 12 months, did you worry whether your food would run out before you got money to buy more?: Never true Do you have trouble paying for medicines?: No Do you have trouble getting transportation to medical appointments?: No Do you have trouble paying your heating and electricity bill?: No Do you have trouble taking care of your child, family member or friend?: No Do you have trouble with day-to-day activities such as bathing, preparing meals, shopping, managing finances, etc.?: No Are you currently unemployed and looking for a job?: Yes Are you interested in more education?: No Please select the resources that you would like help with: None Currently or been in a relationship where the following occur: No concerns reported THRIVE Score: 0 JASPREET-7 AMB Questionnaire JASPREET-7 Date JASPREET - 7 assessed: 12/11/24 Source: Developed by Arabella Duggan.W. Oswald, Timbo Hoffman and colleagues, with an educational ernie from [employer]. Review of Systems Const Denies body aches, Denies chills, Denies fever(s), Denies headache(s) and Denies poor appetite Eyes Reports no additional complaints ENT Denies dysphagia, Reports dizziness, Denies headache(s) and Denies odynophagia Card Reports chest pain, Denies syncope, Denies edema, Denies irregular heart rhythm, Reports lightheadedness and Denies dyspnea Resp Denies cough and Denies dyspnea GI Denies abdominal pain, Denies constipation, Denies dysphagia, Denies diarrhea, Denies nausea, Denies odynophagia and Denies vomiting Reports no additional complaints Musc Reports no additional complaints and Denies abnormal gait Skin/Breast Reports system reviewed and no additional complaints, except as documented Neuro Denies abnormal gait, Reports dizziness, Denies syncope and Denies headache(s) Psych Reports no additional complaints Physical exam (Primary Care) Vital Signs: Last Vital Signs Pulse 67 12/11/24 12:57 BP 124/90 H 12/11/24 12:57 Pulse Ox 99 12/11/24 12:57 Oxygen Delivery Method Room Air 12/11/24 12:57 BMI result Body Mass Index 29.7 Tobacco/Smoking Status: Tobacco use Status Tobacco use date assessed 12/11/24 12/11/24 12:58 Patient Tobacco Use Status Never used Tobacco 12/11/24 12:58 e-Cigarette/Vaping Use Never Used 12/11/24 12:58 Thrive Assessment: Date of Thrive Assessment Date Thrive assessed 12/11/24 12/11/24 12:58 Currently or been in a relationship where the following occur: No concerns reported Const General: cooperative, healthy appearing, comfortable and no acute distress Orientation/consciousness: patient oriented x3 HENMT Head: Yes normocephalic Ears: hearing grossly normal bilaterally General nose exam: Normal external nose present Eyes General: appearance normal, both eyes and all related structures Conjunctivae: conjunctivae normal Neck Neck: Yes full ROM and Yes no lymphadenopathy Resp Effort & Inspection: normal respiratory effort Auscultation: clear to auscultation bilaterally, no crackles, no rales, no rhonchi and no wheezes Cardio Rate: regular rate Rhythm: regular rhythm Skin General skin exam: no rashes or lesions noted Neuro General: patient oriented x3 Gait exam (Neuro): Normal gait present Extrem General: Yes normal to inspection, Yes full ROM and No edema Psych Affect: normal affect Attitude: cooperative Insight: Good insight present (Psych) Judgement: Good judgement present (Psych) Results AMB Hemoglobin A1c AMB Hemoglobin A1c 6.8 % Last Edit by ABDI Richard on 12/11/24 13:23 Results Reviewed Results Reviewed: Laboratory Last Values Hgb A1c (Clinic) 6.8 % (4.0-6.0) H 12/11/24 13:04 Coding Level of Care Code Est Pt Level 4 (60137) Diagnoses Hypertension, essential I10 Dizziness R42 Chest pain R07.1 Chest pain type: chest pain on breathing Coronary artery calcification I25.10 Left ventricular hypertrophy I51.7 Type 2 diabetes mellitus with hyperglycemia, without long-term current use of insulin E11.65 Diabetes mellitus cancer registry manager insulin use: without cancer registry manager use Assessment & Plan Assessment & Plan (1) Hypertension, essential: Code(s): I10 - Essential (primary) hypertension Category: Medical Plan: Continue on current blood pressure medication. Avoid salt intake and encourage healthy diet and regular exercise. Mildly elevated today he will continue to monitor at home (2) Dizziness: Code(s): R42 - Dizziness and giddiness Category: Medical Plan: Patient having dizziness and chest pain with exercise. CTA was negative for acute blockage. Plan for echocardiogram and urgent referral to Cardiology for further evaluation and treatment. (3) Chest pain: Code(s): R07.9 - Chest pain, unspecified Category: Medical Qualifiers: Chest pain type: chest pain on breathing Qualified Code(s): R07.1 - Chest pain on breathing Plan: See above plan (4) Coronary artery calcification: Comment: CTA 11/2024 Code(s): I25.10 - Atherosclerotic heart disease of [place] coronary artery without angina pectoris Category: Medical Plan: Patient having coronary artery calcification on CTA in the ED. plan to start on low-dose aspirin and I did recommend a statin however was declined by the patient. He agrees to have repeat blood work done and consider statin at that time. Referral was also placed to cardiology as well. (5) Left ventricular hypertrophy: Code(s): I51.7 - Cardiomegaly Category: Medical Plan: Ordered for echocardiogram and referral placed to cardiology (6) Type 2 diabetes mellitus with hyperglycemia: Code(s): E11.65 - Type 2 diabetes mellitus with hyperglycemia Category: Medical Qualifiers: Diabetes mellitus cancer registry manager insulin use: without mcc use Qualified Code(s): E11.65 - Type 2 diabetes mellitus with hyperglycemia Plan: Decrease the amount of carbohydrates such as pasta, bread, rice, and potatoes and limit the amount of sweets. Although fruits are generally healthy they should be eaten in moderation as they are still high in sugar. Hemoglobin A1c goal of less than 7%. A1c in the clinic 6.8% on metformin 500 mg b.i.d.. Continue on this medication regimen at this time. Plan The patient will begin aspirin therapy to address cardiovascular risk due to coronary artery calcifications. A statin is advised to reduce LDL cholesterol levels below 70 mg/dL. Cardiovascular assessment will include an echocardiogram and potential Holter monitoring to evaluate heart rhythm and further explore the dizziness etiology. Annual neurology follow-up is planned for seizure disorder management, currently managed with Depakote. The patient should avoid strenuous activities until cardiology evaluation is completed to prevent dizziness exacerbation and potential falls. Blood pressure will be monitored, focusing on occasional diastolic elevation. Diabetes management with metformin will continue, given the significant improvement in A1c. Lifestyle changes, including diet and exercise, are recommended to maintain glycemic control and cardiovascular health. The patient is advised to abstain from alcohol to support liver and metabolic health. This note was constructed using voice recognition software. While every effort has been made to ensure accuracy and cooler conveyor loader, still areas may have been included sometimes these areas may affect the content or meeting of the given symptoms. Total time spent caring for the patient today was 30 minutes. This includes time spent before the visit reviewing the chart, time spent during the visit, and time spent after the visit and documentation. Patient was informed and verbally consented to the use of an ambient scribe for clinic note documentation during this visit. Orders: Orders CA echo transthoracic complete Today R42 - Dizziness and giddiness AMB Hemoglobin A1c Today E11.65 - Type 2 diabetes mellitus with hyperglycemia Referrals Cardiology Referral R07.1 - Chest pain on breathing, R42 - Dizziness and giddiness Medications: New aspirin (Adult Aspirin Regimen) 81 mg PO DAILY 90 tabs 0RF
[2024-12-11 12:57] VITALS: BP 124/90; PULSE 67; O2SAT 99; BMI 29.7
== END 2024-12-11 13:46 | disposition home or self-care (01) ==
LOC: HO.HMCH 12:53
PROVIDERS: PCP Internal Medicine
DX: I10 Essential (primary) hypertension (principal); R42 Dizziness and giddiness; R07.1 Chest pain on breathing; I25.10 Atherosclerotic heart disease of native coronary artery without angina pectoris; I51.7 Cardiomegaly; E11.65 Type 2 diabetes mellitus with hyperglycemia

== ENCOUNTER → 2024-12-11 12:52 | Outpatient (BNVA) | payer OTHER, SELFPAY | PROVIDERS: PCP Internal Medicine | DX: I11.9 Hypertensive heart disease without heart failure (principal); G40.909 Epilepsy, unspecified, not intractable, without status epilepticus; R42 Dizziness and giddiness; M54.9 Dorsalgia, unspecified; R07.1 Chest pain on breathing; I25.10 Atherosclerotic heart disease of native coronary artery without angina pectoris; E11.65 Type 2 diabetes mellitus with hyperglycemia | CPT/HCPCS: 83036; 99212 ==

== ENCOUNTER 2024-12-12 08:03 | Outpatient (REF) | payer OTHER, SELFPAY ==
[2024-12-12 10:18] LABS: MANUAL DIFF FLAG NO
[2024-12-12 10:26] LABS: Hematocrit 46.0 % (42.0-52.0); Hemoglobin 16.2 g/dl (14.0-18.0); Imm Gran Abs Auto 0.02 X10*3/uL (0.00-0.03); Imm Gran Pct Auto 0.4 % (0.0-0.4); Lymphocytes Absolute Auto 1.9 X10*3/uL (1.2-4.9); Mean Corpuscular HGB Conc 35.2 g/dl (31.0-36.0); Mean Corpuscular Hemoglobin 30.8 pg (27.0-33.0); Mean Corpuscular Volume 87.5 fL (80.0-98.0); NRBC Abs Auto 0.000 X10*3/uL (0.0-0.012); NRBC Pct Auto 0.0 /100WBC (0.0-0.2); Platelet Count 106 X10*3/uL (160-400); Red Blood Count 5.26 X10*6/uL (4.60-5.80); White Blood Count 4.8 X10*3/uL (4.8-10.8)
[2024-12-12 10:41] LABS: Alanine Aminotransferase 23 U/L (0-40); Albumin Level 4.3 g/dL (3.5-5.0); Alkaline Phosphatase 51 U/L (39-117); Anion Gap 12 (12-20); Aspartate Amino Transferase 24 U/L (5-37); Blood Urea Nitrogen 25 mg/dL (9-16); Calcium 9.3 mg/dL (8.4-10.2); Carbon Dioxide 30 mmol/L (22-29); Chloride 101 mmol/L (96-108); Cholesterol 246 mg/dL (<200); Estimated Glomerular Filt Rate > 60; HDL Cholesterol 61 mg/dL (>40); Potassium 5.0 mmol/L (3.3-5.1); Sodium 138 mmol/L (135-145); Total Protein 6.6 g/dL (6.5-8.0); Triglycerides 197 mg/dL (<150)
[2024-12-12 10:57] LABS: Free T4 (Free Thyroxine) 0.76 ng/dL (0.71-1.85); Thyroid Stimulating Hormone 4.87 uIU/mL (0.32-4.0)
[2024-12-12 11:09] LABS: Folate 9.6 ng/mL (> or = 4.0); Vitamin B12 586 pg/mL (200-900)
== END 2024-12-12 08:04 | disposition home or self-care (01) ==
LOC: HO.HMGCLDS 08:03
PROVIDERS: PCP Internal Medicine; Visit Provider Internal Medicine
DX: F10.27 Alcohol dependence with alcohol-induced persisting dementia (principal); F19.90 Other psychoactive substance use, unspecified, uncomplicated; E78.00 Pure hypercholesterolemia, unspecified
CPT/HCPCS: 36415; 80053; 80061; 80164; 82607; 82746; 84153; 84439; 84443; 85025

== ENCOUNTER → 2024-12-17 13:38 | Outpatient (REF) | payer OTHER, SELFPAY ==
--- NOTE | 2024-12-17 13:42 | CA_ITS ---
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 Normal LV ejection fraction of 60 65% with mild LVH with grade 1 diastolic dysfunction 2. Normal cardiac valvular Dopplers 3. Normal RV systolic pressure 4. No gross pericardial effusion Findings Left Ventricle Normal left ventricular size and systolic function. There is mildly increased left ventricular wall thickness. The visually estimated ejection fraction is between 60-65%. There is no dynamic left ventricular outflow tract obstruction. Spectral Doppler is indicative of an impaired relaxation filling pattern. E/E prime ratio is <8, consistent with normal filling pressures. Evidence suggests grade I (mild) diastolic dysfunction. There is moderate septal asymmetric hypertrophy. Right Ventricle Normal right ventricular cavity size and systolic function. Atria The left atrium is likely dilated. There is no evidence of interatrial shunt. The right atrium is normal in size. Aortic Valve Normal aortic valve structure and function. There is no aortic valve stenosis. There is no aortic valve regurgitation. Mitral Valve Normal mitral valve structure and function. There is trace mitral valve regurgitation. There is no mitral valve stenosis. Pulmonic Valve The pulmonic valve is likely normal. Tricuspid Valve Normal tricuspid valve structure. There is trace tricuspid valve regurgitation. The right ventricular systolic pressure is normal. The right ventricular systolic pressure is 19 mmHg. Normal right atrial pressure. There is no evidence of pulmonary hypertension. Great Vessels All visible segments of the aorta are normal in size. The pulmonary artery was not well visualized. There is no dilatation of the ascending aorta measuring 3.40 cm. Venous The inferior vena cava is normal in size and collapses greater than 50% with inspiration. Pericardium/Pleural There is no evidence of pericardial effusion. Prior Study Comparison No prior study available for comparison. Measurements 2D Linear Measurements IVSd: 1.53 0.6-0.9/0.6-1.0 cm LVIDd: 3.74 3.9-5.3/4.2-5.9 cm LVIDd Index: 2.03 2.4-3.2/2.2-3.1 cm/m2 LVIDs: 2.50 2.0-3.6 cm LVPWd: 1.32 0.7-1.1 cm Ao Root: 3.80 2.1-3.5 cm LA Diam: 3.50 2.7-3.8/3.0-4.0 cm LAIDs Index: 1.90 1.5-2.3 cm/m2 LV Mass: 243.23 67-162/88-224 g LV Mass Index: 132.19 43-95/49-115 g/m2 LVOT Diam: 2.50 3.0+(-)1.3 cm 2D Systolic Function EF 4C: 65.10 >55% EF 2C: 56.30 >55% EF BiP: 61.50 >55% Mitral Valve MV Pk E: 0.52 MV PK A: 1.00 MV Decel Time: 197.00 E/A: 0.50 E'Lateral: 7.29 E'Medial: 5.98 E/E' Med: 8.70 E/E' Lat: 7.20 PHT: 58.00 MVA PHT: 3.79 Decel [place]: 2.65 Aortic Valve AoV Pk Gamaliel: 1.42 AoV Mn Gamaliel: 0.95 AoV VTI: 0.31 AoV Pk Grad: 8.00 Aov Mn Grad: 4.00 ALIYA Cont.VTI: 5.16 LVOT LVOT Pk Gamaliel: 1.61 LVOT Mn Gamaliel: 1.12 LVOT VTI: 0.33 LVOT Pk Grad: 10.00 LVOT Mn Grad: 6.00 LVOT Diam: 2.50 LVOT Area: 4.91 Diastolic Function MV Pk E: 0.52 MV Pk A: 1.00 E/A: 0.50 E'Medial: 5.98 E/E' Med: 8.70 E' Laterial: 7.29 E/E' Lat: 7.20 Right Ventricle TAPSE (mm): 23.00 TVS' Gamaliel: 11.00 Tricuspid Valve TR Pk Gamaliel: 2.03 TR Pk Grad: 16.00 RA Press: 3.00 RVSP: 19.00 Great Vessels Aorta Ao Root-2D: 3.80 2.0-3.7 cm Ao Asc: 3.40 2.1-3.4 cm Pulmonary Valve PV Pk Gamaliel: 1.13 Peak PV Grad: 5.00 Updated in Other Vendor System with Status of Final Bob Gomez MD electronically signed on 12/18/2024 12:12:58 PM with status of Final
== END ==
LOC: HO.CARD 13:38
PROVIDERS: PCP Internal Medicine
DX: R42 Dizziness and giddiness (principal)
CPT/HCPCS: 93306

== ENCOUNTER → 2024-12-17 13:42 | Outpatient (BNV) | payer OTHER, SELFPAY | PROVIDERS: PCP Internal Medicine; Visit Provider Internal Medicine Cardiovascular Disease | DX: I42.2 Other hypertrophic cardiomyopathy (principal) | CPT/HCPCS: 93306 ==

== ENCOUNTER 2024-12-24 09:21 | Outpatient (AMB) | payer OTHER, SELFPAY ==
[2024-12-24 09:51] VITALS: BP 156/80; PULSE 88; BMI 30.3
--- NOTE | 2024-12-24 09:51 | MHC.OFFVIS ---
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 on breathing- neg CTA Intake Note: New patient c/o lightheadness and back tightness with activity Oil Fire Specialist Required: No Allergies Seasonal Allergies Allergy (Verified 12/11/24 13:05) itchy watery eyes, nasal congestion levetiracetam Adverse Reaction (Severe, Verified 12/11/24 13:05) psychosis, confusion Medication List - Last Reconciled 12/24/24 by Bob Gomez MD aspirin (Adult Aspirin Regimen) 81 mg PO DAILY blood sugar diagnostic (FreeStyle Lite Strips) As directed check the BS QD blood-glucose meter As directed blood-glucose meter (FreeStyle Lite Meter kit) As directed divalproex (Depakote) 500 mg PO BID 90 days lancets (FreeStyle Lancets) As directed check BS QD metformin 500 mg PO BID HPI Comments Details: Thank you for referring Mike in cardiology consultation today for exertional symptoms. 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 Patient has been noticing intermittent episodes of lightheadedness when he exerts himself initially and then followed by throat tightness and then interscapular tightness that prevents him from pushing harder. Her after 15 minutes of those symptoms and can continue to run around and referee. Patient says he gets minor symptoms with lightheadedness when he is rushing to get his mail or rushing at to walk to the end of the cul-de-sac in his treat but does not get symptoms when he is biking. He said he started noticing these symptoms about 3 years ago but they were very minor and intermittent. Symptoms are more noticeable this summer where he notices this symptoms every time he is doing exertional activity. He has prior history of alcohol use and opioid use disorder which he has stopped. Recently had a fall and had subsequent evaluation because of dizziness and had a brain MRI which shows punctate micro ischemic changes along with old stroke. Since then patient has been started on aspirin therapy and also has been started on metformin for his diabetes. He has never had prior myocardial infarction or does not recall ever having a stroke in the past. No other vascular events. He had echocardiogram as CT scan of chest was done for these symptoms every suggested coronary calcification as well as LVH. There was no evidence of pulmonary embolism. Echocardiogram shows normal LV ejection fraction with mild LVH without major valvular abnormalities. He is referred here for further evaluation management. [facility] Medical History Seizure disorder Alcoholic dementia Cerebellar atrophy Encephalopathy Generalized seizure disorder Opioid use disorder Diabetes mellitus Right rib fracture Surgical History No pertinent past surgical history Family History Father CAD (coronary artery disease) Other Mental health disorder Social History Housing: House Alcohol intake: former Comment: quit 05/2024 used to did drink a lot before Patient Tobacco Use Status: Never used Tobacco Years Smoked: marijuana e-Cigarette/Vaping Use: Never Used Second Hand Smoke Exposure: No service: No Current occupational status: unemployed Current occupation: rt handed/[employer] Cognitive needs: No Hearing needs: No Vision needs: No Review of Systems Const Denies chills, Denies daytime sleepiness, Denies fatigue, Denies fever(s), Denies frequent falls, Denies poor appetite, Denies snoring, Denies stops breathing during sleep, Denies weakness, Denies weight gain and Denies weight loss Eyes Denies loss of vision ENT Denies dizziness and Denies hearing loss Card Reports chest pain with activity, Denies claudication, Denies leg edema, Reports lightheadedness, Denies palpitations, Denies dyspnea, Reports dyspnea on exertion, Denies orthopnea and Denies paroxysmal nocturnal dyspnea Resp Denies cough, Denies excessive phlegm production, Denies dyspnea, Reports dyspnea on exertion, Denies snoring and Denies wheezing GI Denies abdominal pain, Denies hematochezia, Denies change in bowel habits, Denies nausea and Denies vomiting Denies dysuria and Denies urinary frequency Musc Reports arthralgias, Denies muscle weakness and Denies numbness Skin/Breast Denies nail changes and Denies rash Neuro Denies Abnormal speech present, Denies dizziness, Denies frequent falls, Denies loss of vision, Denies memory loss, Denies numbness and Denies weakness Psych Denies depression and Denies memory loss Endo Denies fatigue and Denies palpitations Mehrdad/Lymph Reports easy bruising and Reports other (anemia) Aller/Immun Denies wheezing Physical Exam Vital Signs: Last Vital Signs Pulse 88 12/24/24 09:51 BP 156/80 H 12/24/24 09:51 BMI result Body Mass Index 30.3 Const General: cooperative, comfortable, no acute distress, alert, awake, Physically active and anxious Nutritional Appearance: average body habitus Orientation/consciousness: patient oriented x3 Limitations: no limitations HEENT Head: Yes normocephalic and Yes atraumatic Neck Neck: Yes trachea midline, Yes supple and Yes no JVD Resp Effort & Inspection: normal respiratory effort Auscultation: clear to auscultation bilaterally Cardio Jugular venous distension: no JVD Palpation: normal PMI Rate: regular rate Rhythm: regular rhythm Heart sounds: S1 normal heart sound present, S2 normal heart sound present, no click, no gallops and Murmur heart sound present systolic early GI Auscultation: normal bowel sounds Skin General skin exam: no rashes or lesions noted Neuro General: patient oriented x3 and no focal motor deficits Speech: No Abnormal speech present Extrem General: Yes no clubbing, cyanosis or edema Psych Appearance: grossly normal Affect: Anxious affect present Office Procedures EKG Details: EKG shows normal sinus rhythm with nonspecific ST changes and T-wave inversion in lead 3, could represent repolarization abnormality also could represent ischemia [id number], Complete Assessment & Plan Assessment & Plan (1) Exertional angina: Code(s): I20.89 - Other forms of angina pectoris Category: Medical Plan: Patient's symptoms are highly suggestive of exertional angina with recent crescendo with activities noted almost on every day basis only with high level of activity or when he is anxious and stressed. The symptoms are highly concerning for obstructive coronary artery disease. This was discussed with him. At this point time we discussed 2 options including pursuing physiologic testing with exercise imaging and/or pursuing anatomic evaluation with cardiac catheterization. Will pursued both. High this point time I have advised him to avoid sudden bursts of exercise and less in his intensity of exercise as well. I have advised him to seek emergency care if he gets any symptoms at rest. I have taken the liberty to provide him sublingual nitroglycerin and discussed with him the use of sublingual nitroglycerin. He understands and agrees. Meanwhile continue aspirin therapy. Continue aggressive risk factor modification. I am starting on metoprolol therapy as an anti ischemic therapy. Also start him on statin therapy given his prior CVA noted on brain MRI to reduce future cardiovascular events as a secondary prevention. He understands agrees. Follow-up lipid panel in 3 months time and target goal LDL less than 55 mg/dL. Advised to avoid drug use. Also will obtain a carotid duplex given his prior CVA to assess for carotid disease. He understands management very well. He is advised to call me with any new symptoms. Will follow up in the clinic in 6 weeks time, sooner p.r.n.. Thank you for allowing me to partake in his care Orders: Orders CA stress test Today I20.89 - Other forms of angina pectoris NM cardiolite stress test 2 Weeks I20.89 - Other forms of angina pectoris, R07.9 - Chest pain, unspecified Cardiac Cath LT w PCI 4 Weeks I20.89 - Other forms of angina pectoris Prothrombin Time INR Today I20.89 - Other forms of angina pectoris Basic Metabolic Panel Today I20.89 - Other forms of angina pectoris Complete Blood Count no Diff Today I20.89 - Other forms of angina pectoris US carotid duplex BI 1 Week I63.9 - Cerebral infarction, unspecified Medications: New metoprolol succinate ER (Toprol XL) 50 mg PO DAILY 30 tabs 3RF I20.89 - Other forms of angina pectoris atorvastatin (Lipitor) 40 mg PO DAILY 30 tabs 3RF I20.89 - Other forms of angina pectoris nitroglycerin do not exceed 3 doses per episode 0.4 mg sublingual Q5M PRN 20 tabs 0RF chest pain I20.89 - Other forms of angina pectoris Coding Level of Care Code New Pt Level 4 (42420) Complex EM visit Add On G2211 Diagnoses Exertional angina I20.89 CPT Codes EKG - CPT: 69360-[id number], Complete ([id number])
== END 2024-12-24 11:00 | disposition home or self-care (01) ==
LOC: HO.HCS 09:22
PROVIDERS: PCP Internal Medicine; Visit Provider Internal Medicine
DX: I20.89 Other forms of angina pectoris (principal)
CPT/HCPCS: 93010; 99204

== ENCOUNTER → 2024-12-24 09:21 | Outpatient (BNVA) | payer OTHER, SELFPAY | PROVIDERS: PCP Internal Medicine; Visit Provider Internal Medicine | DX: R42 Dizziness and giddiness (principal); R07.9 Chest pain, unspecified; E11.9 Type 2 diabetes mellitus without complications; I20.89 Other forms of angina pectoris | CPT/HCPCS: 93005; 99202 ==

== ENCOUNTER → 2025-01-20 23:59 | Outpatient (BNV) | payer OTHER, SELFPAY | PROVIDERS: PCP Internal Medicine; Visit Provider Internal Medicine Cardiovascular Disease | DX: I20.89 Other forms of angina pectoris (principal) | CPT/HCPCS: 93458; 99152 ==

== ENCOUNTER 2025-02-02 15:12 | Outpatient (AMB) | payer OTHER, SELFPAY ==
[2025-02-02 15:17] VITALS: BP 140/92; PULSE 71; TEMP 36.3; O2SAT 96; BMI 30.1
--- NOTE | 2025-02-02 15:17 | MHC.PC.OV ---
Vital Signs 02/02/25 15:17 02/02/25 15:45 Height 5 ft 4 in Weight 175 lb 4 oz BMI 30.1 BP 140/92 H 126/80 Blood Pressure Location Lt brachial Lt brachial Position Sitting Sitting Pulse 71 Pulse Source Pulse Oximeter Temp 97.3 F Temp Source Temporal Artery Scan Pulse Oximetry (%) 96 Oxygen Delivery Method Room Air Intake Visit Reasons: 2 month f/u-A1C+RE-DO PHQ9 NEEDS MD INTERPRETATION Allergies Seasonal Allergies Allergy (Verified 02/02/25 15:19) itchy watery eyes, nasal congestion levetiracetam Adverse Reaction (Severe, Verified 02/02/25 15:19) psychosis, confusion Medication List - Last Reconciled 02/02/25 by Vonda Crump MD aspirin (Adult Aspirin Regimen) 81 mg PO DAILY atorvastatin (Lipitor) 40 mg PO DAILY blood sugar diagnostic (FreeStyle Lite Strips) As directed check the BS QD blood-glucose meter As directed blood-glucose meter (FreeStyle Lite Meter kit) As directed divalproex (Depakote) 500 mg PO BID 90 days lancets (FreeStyle Lancets) As directed check BS QD metformin 500 mg PO BID metoprolol succinate ER (Toprol XL) 50 mg PO DAILY nitroglycerin 0.4 mg sublingual Q5M PRN Tobacco use date assessed: 02/02/25 Dental Screening Dental Screen Date: 02/02/25 Did you have a dental visit in the last 12 months?: Yes Did you have a dental problem in the last 6 months where you did not have access to dental care?: No Was dental information given to patient?: Patient has dentist HPI 2 month f/u-A1C+RE-DO PHQ9 NEEDS MD INTERPRETATION HPI Details still getting light headed but would be able to handle PFS Medical History Seizure disorder Alcoholic dementia Cerebellar atrophy Encephalopathy Generalized seizure disorder Opioid use disorder Diabetes mellitus Right rib fracture Surgical History No pertinent past surgical history Family History Father CAD (coronary artery disease) Other Mental health disorder Social History Housing: House Alcohol intake: former Comment: quit 05/2024 used to did drink a lot before Patient Tobacco Use Status: Never used Tobacco Years Smoked: marijuana e-Cigarette/Vaping Use: Never Used Second Hand Smoke Exposure: No service: No Current occupational status: unemployed Current occupation: rt handed/[employer] Cognitive needs: No Hearing needs: No Vision needs: No Questionnaire PHQ-9 Over the last 2 weeks, how often have you been bothered by any of the following problems? 1. Little interest or pleasure in doing things: nearly every day 2. Feeling down, depressed, or hopeless: not at all 3. Trouble falling or staying asleep, or sleeping too much: nearly every day 4. Feeling tired or having little energy: not at all 5. Poor appetite or overeating: not at all 6. Feeling bad about yourself - or that you are a failure or have let yourself or your family down: not at all 7. Trouble concentrating on things, such as reading the newspaper or watching television: not at all 8. Moving or speaking so slowly that other people could have noticed. Or the opposite - being so fidgety or restless that you have been moving around a lot more than usual: several days 9. Thoughts that you would be better off or of hurting yourself in some way: not at all Total score: 7 Depression Screening Interpretation: Positive Depression Screening Done: Yes 36001 - PHQ-9 Billing: Yes Source: Developed by Drs. Contreras Edwards, Arabella Akers, Timbo Hoffman and colleagues, with an educational ernie from [employer]. Thrive Questionnaire Date Thrive assessed: 06/30/24 I am a: Patient What is your living situation today?: I have a steady place to live Within the past 12 months, did the food you bought not last and you didn't have the money to get more?: Never true Within the past 12 months, did you worry whether your food would run out before you got money to buy more?: Never true Do you have trouble paying for medicines?: No Do you have trouble getting transportation to medical appointments?: No Do you have trouble paying your heating and electricity bill?: No Do you have trouble taking care of your child, family member or friend?: No Do you have trouble with day-to-day activities such as bathing, preparing meals, shopping, managing finances, etc.?: No Are you currently unemployed and looking for a job?: Yes Are you interested in more education?: No Please select the resources that you would like help with: None Currently or been in a relationship where the following occur: No concerns reported THRIVE Score: 0 AUDIT C Alcohol Use Questionnaire (AUDIT-C) 1. How often do you have a drink containing alcohol?: Never 3. How often do you have six or more drinks on one occasion?: Never Total Score: 0 JASPREET-7 AMB Questionnaire JASPREET-7 Date JASPREET - 7 assessed: 12/11/24 Feeling nervous, anxious, or on edge: 0 = Not at all Not being able to stop or control worryin = Not at all Worrying too much about different things: 0 = Not at all Trouble relaxin = Not at all Being so restless that it is hard to sit still: 0 = Not at all Becoming easily annoyed or irritable: 3 = Nearly every day Feeling afraid as if something awful might happen: 0 = Not at all Total JASPREET-7 score (0-4 normal; 5-9 mild; 10-14 moderate; 15-21 severe): 3 Source: Developed by Drs. Contreras Edwards, Arabella Akers, Timbo Hoffman and colleagues, with an educational ernie from [employer]. Physical exam (Primary Care) Vital Signs: Last Vital Signs Temp 97.3 F 02/02/25 15:17 Pulse 71 02/02/25 15:17 BP 126/80 02/02/25 15:45 Pulse Ox 96 02/02/25 15:17 Oxygen Delivery Method Room Air 02/02/25 15:17 BMI result Body Mass Index 30.1 Tobacco/Smoking Status: Tobacco use Status Tobacco use date assessed 02/02/25 02/02/25 15:21 Patient Tobacco Use Status Never used Tobacco 02/02/25 15:21 e-Cigarette/Vaping Use Never Used 02/02/25 15:21 PHQ-9: PHQ-9 Score PHQ-9: Total score 7 02/02/25 15:43 Depression Screening Interpretation: Positive Thrive Assessment: Date of Thrive Assessment Date Thrive assessed 06/30/24 02/02/25 15:21 Currently or been in a relationship where the following occur: No concerns reported Const General: alert; No acute distress Eyes Conjunctivae: conjunctivae normal Resp Auscultation: clear to auscultation bilaterally Cardio Rate: regular rate Rhythm: regular rhythm GI Inspection: Yes normal to inspection Extrem General: Yes normal to inspection and No edema Coding Level of Care Code Est Pt Level 4 (00987) Complex EM visit Add On G2211 Diagnoses Type 2 diabetes mellitus with hyperglycemia, without long-term current use of insulin E11.65 Diabetes mellitus rn long term care insulin use: without rn long term care use Hypertension, essential I10 Coronary artery calcification I25.10 Hypercholesterolemia E78.00 Substance use disorder F19.90 Additional Codes PHQ-9 - 17161 - PHQ-9 Billing: Yes ([id number]) Assessment & Plan Assessment & Plan (1) Type 2 diabetes mellitus with hyperglycemia: Code(s): E11.65 - Type 2 diabetes mellitus with hyperglycemia Category: Medical Qualifiers: Diabetes mellitus jail insulin use: without jail use Qualified Code(s): E11.65 - Type 2 diabetes mellitus with hyperglycemia Plan: Decrease the amount of carbohydrate intake, pasta, bread, rice and potatoes are all sugar and that is aside from all the sweet stuff, remember that fruits are good but they are Sweet also. Hemoglobin A1c goal of less than 6.5. Patient on metformin 500 mg twice a day (2) Hypertension, essential: Code(s): I10 - Essential (primary) hypertension Category: Medical Plan: Continue with blood pressure medication. Decrease salt intake and exercise on metoprolol 50 mg once a day (3) Coronary artery calcification: Comment: CTA 11/2024 Code(s): I25.10 - Atherosclerotic heart disease of elim ira coronary artery without angina pectoris Category: Medical Plan: Control the cholesterol, weight, blood pressure, diabetes cardiac catheterization done nonobstructive. On aspirin 81 mg once a day (4) Hypercholesterolemia: Code(s): E78.00 - Pure hypercholesterolemia, unspecified Category: Medical Plan: Avoid fried foods, chicken skin, eggs, butter margarine, pastries and meat. Be it pork or beef they have a lot of cholesterol LDL goal of less than 70 and triglyceride of less than 150 on atorvastatin 40 mg once a day (5) Substance use disorder: Comment: He has possible need for Suboxone in future, but he doesnt think so at this time. Code(s): F19.90 - Other psychoactive substance use, unspecified, uncomplicated Category: Medical Plan: Continue with comprehensive care Plan History of Present Illness The patient is a 59-year-old male presenting for a follow-up visit to manage multiple chronic conditions including hypertension, seizure disorder, diabetes mellitus, alcoholic dementia, substance use disorder, and coronary artery disease. The patient has a history of hypertension, which has been monitored with a goal of maintaining blood pressure at 120/80 mmHg. Recent measurements showed a blood pressure of 126/80 mmHg, which is considered acceptable, although there have been instances of higher readings such as 140/90 mmHg during physical activity. The patient has a seizure disorder and was seen by neurology in October for this condition. The patient experiences cerebellar atrophy, as indicated by a mild to moderate cerebellar atrophy finding on an MRI conducted in June 2024. Diabetes mellitus is another chronic condition for the patient, with a hemoglobin A1c of 6.8% in November, down from 11.6% in June. The patient is on metformin 500 mg twice a day to manage blood sugar levels, with a target A1c of less than 6.5%. The patient has a history of coronary artery disease and underwent a cardiac catheterization on January 20, 2025, which showed non-obstructive coronary arteries. The patient is on aspirin 81 mg once a day as part of the management plan. The patient has alcoholic dementia and a substance use disorder, with a history of being on Suboxone and considering its future use. The patient has hypercholesterolemia, with an LDL cholesterol level of 146 mg/dL and triglycerides at 197 mg/dL. The patient is on atorvastatin 40 mg once a day to manage cholesterol levels. The patient has thrombocytopenia, with a platelet count noted to be low since early this year. The patient reports arthritis in the hands and shoulders, with consideration of using Voltaren gel for symptomatic relief. Preventative care measures include being up to date with vaccinations such as shingles and tetanus, and planning to receive a flu shot in January. Health Maintenance - Vaccinations: Up to date with shingles and tetanus, flu shot planned for January - Cardiovascular risk reduction: Aggressive primary risk factor modification including ATP-3 guidelines, blood pressure control, and monitoring Social History - Exercise: Patient reports being active, riding a bike daily, and participating in soccer, although has stopped due to dizziness. - Substance use: History of substance use disorder, currently on Suboxone with consideration for future use. Review of Systems - Cardiovascular: Reports dizziness and lightheadedness, denies chest pain or syncope. - Musculoskeletal: Reports arthritis in hands and shoulders, denies any recent falls or injuries. - Neurological: Reports lightheadedness, denies headaches or balance issues. Physical Exam General: Cooperative, healthy appearing, comfortable, no acute distress and well developed Orientation: Patient oriented x3 Limitations: No limitations Head: Normal to inspection Ears: Hearing grossly normal bilaterally Nose: Normal external nose present Face and sinus: Normal facial exam Eyes: Appearance normal, both eyes and all related structures. Patient needs glasses to see far away and close. Neck: Normal visual inspection and Yes full ROM Respiratory: Normal respiratory effort and able to speak in complete sentences. Clear to auscultation bilaterally Cardiovascular: Regular rate and rhythm. Normal S1 and S2 GI: Normal to inspection. Soft to palpation and nontender Skin: No rashes or lesions noted Neuro: Patient oriented x3. Reports lightheadedness when running up a flight of stairs, but no shortness of breath. No dizziness or spinning sensation. Extremities: Normal to inspection. Reports arthritis in hands and shoulders. Results - Echocardiogram: LV ejection fraction 60-65%, mild LVH, grade 1 diastolic dysfunction, no valvular problems - MRI: Mild to moderate cerebellar atrophy - Blood work: Normal blood count, thrombocytopenia, normal electrolytes, blood sugar 126 mg/dL, hemoglobin A1c 6.8%, mildly elevated TSH, LDL 146 mg/dL, triglycerides 197 mg/dL Plan Patient was informed and verbally consented to the use of an ambient scribe for clinic note documentation during this visit. 1. Hypertension The patient's hypertension is being managed with metoprolol 50 mg once a day, with a target blood pressure of 120/80 mmHg. Recent blood pressure readings have been 126/80 mmHg, which is acceptable, but there have been instances of higher readings during physical activity. 2. Seizure Disorder The patient continues to be monitored by neurology for seizure disorder, with cerebellar atrophy noted on MRI. 3. Diabetes Mellitus The patient's diabetes is managed with metformin 500 mg twice a day, aiming for a hemoglobin A1c of less than 6.5%. The current A1c is 6.8%, down from 11.6% in June, indicating improvement. 4. Coronary Artery Disease The patient underwent a cardiac catheterization which showed non-obstructive coronary arteries. The patient is on aspirin 81 mg once a day as part of the management plan. 5. Hypercholesterolemia The patient is on atorvastatin 40 mg once a day to manage hypercholesterolemia, with a goal of reducing LDL to less than 100 mg/dL. 6. Thrombocytopenia The patient has a history of thrombocytopenia with a low platelet count noted since early this year, requiring monitoring. 7. Arthritis The patient reports arthritis in the hands and shoulders and is considering using Voltaren gel for symptomatic relief. 8. Preventative Care The patient is up to date with vaccinations including shingles and tetanus, and plans to receive a flu shot in January. Discussion Notes During the visit, I discussed with the patient the importance of managing his chronic conditions, including hypertension, diabetes, and hypercholesterolemia, through medication adherence and lifestyle modifications. We reviewed the results of his recent cardiac catheterization and the need for continued aspirin therapy to manage coronary artery disease. I emphasized the importance of maintaining regular follow-ups with neurology for his seizure disorder and monitoring his platelet count due to thrombocytopenia. We also discussed the use of Voltaren gel for arthritis pain relief and the need for regular vaccinations, including an upcoming flu shot. Patient Instructions - Continue taking metoprolol, metformin, atorvastatin, and aspirin as prescribed. - Monitor blood pressure regularly and aim for a target of 120/80 mmHg. - Follow up with neurology as scheduled and report any new seizure activity. - Use Voltaren gel for arthritis pain as needed. - Stay up to date with vaccinations, including getting a flu shot in January. - Maintain a healthy lifestyle with regular exercise and a balanced diet. Orders: Orders Complete Blood Count Auto Diff 3 Months E78.00 - Pure hypercholesterolemia, unspecified Free T4 (Free Thyroxine) 3 Months E78.00 - Pure hypercholesterolemia, unspecified Thyroid Stimulating Hormone 3 Months E78.00 - Pure hypercholesterolemia, unspecified Lipid Panel 3 Months E78.00 - Pure hypercholesterolemia, unspecified Creatinine Urine 3 Months E11.65 - Type 2 diabetes mellitus with hyperglycemia, E78.00 - Pure hypercholesterolemia, unspecified Comprehensive Met. Panel 3 Months E78.00 - Pure hypercholesterolemia, unspecified Hemoglobin A1c 3 Months E78.00 - Pure hypercholesterolemia, unspecified Vitamin B12 and Folate 3 Months E78.00 - Pure hypercholesterolemia, unspecified Microalbumin, Random (w Creat) 3 Months E11.65 - Type 2 diabetes mellitus with hyperglycemia, E78.00 - Pure hypercholesterolemia, unspecified Magnesium 3 Months E78.00 - Pure hypercholesterolemia, unspecified
[2025-02-02 15:45] VITALS: BP 126/80
== END 2025-02-02 16:44 | disposition home or self-care (01) ==
LOC: HO.HMCH 15:13
PROVIDERS: PCP Internal Medicine; Visit Provider Internal Medicine
DX: E11.65 Type 2 diabetes mellitus with hyperglycemia (principal); I10 Essential (primary) hypertension; I25.10 Atherosclerotic heart disease of native coronary artery without angina pectoris; E78.00 Pure hypercholesterolemia, unspecified; F19.90 Other psychoactive substance use, unspecified, uncomplicated

== ENCOUNTER → 2025-02-02 15:12 | Outpatient (BNVA) | payer OTHER, SELFPAY | PROVIDERS: PCP Internal Medicine; Visit Provider Internal Medicine | DX: E11.65 Type 2 diabetes mellitus with hyperglycemia (principal); I10 Essential (primary) hypertension; I25.10 Atherosclerotic heart disease of native coronary artery without angina pectoris; E78.00 Pure hypercholesterolemia, unspecified; F19.90 Other psychoactive substance use, unspecified, uncomplicated; G40.909 Epilepsy, unspecified, not intractable, without status epilepticus; F03.90 Unspecified dementia, unspecified severity, without behavioral disturbance, psychotic disturbance, mood disturbance, and anxiety; D69.6 Thrombocytopenia, unspecified; M19.042 Primary osteoarthritis, left hand; M19.041 Primary osteoarthritis, right hand; M19.012 Primary osteoarthritis, left shoulder; M19.011 Primary osteoarthritis, right shoulder; Z79.84 Long term (current) use of oral hypoglycemic drugs | CPT/HCPCS: 96127; 99212 ==

== ENCOUNTER 2025-02-04 13:46 | Outpatient (REF) | payer OTHER, SELFPAY ==
--- NOTE | ~2025-02-04 | US_ITS ---
EXAMINATION: BILATERAL CAROTID ULTRASOUND WITH DOPPLER HISTORY: I63.9 - Cerebral infarction, unspecified COMPARISON: There are no prior studies available for comparison. TECHNIQUE: Real time and Color and Spectral doppler ultrasonography of the carotid and vertebral arteries was performed in multiple planes. FINDINGS: A small amount of plaque is seen bilaterally. VERTEBRAL FLOW DIRECTION: Antegrade bilaterally. PEAK SYSTOLIC VELOCITIES (in cm/sec): RIGHT: CCA: Prox: 88 Dist: 87.2 ICA: Prox: 58.1 Mid: 75 Dist: 78 ICA/CCA Ratio: 0.70 ECA: 88.5 Peak ICA end diastolic velocity (EDV): 33.4 LEFT: CCA: Prox: 125 Dist: 75.6 ICA: Prox: 57 Mid: 105 Dist: 97.4 ICA/CCA Ratio: 0.50 ECA: 78 Peak ICA end diastolic velocity (EDV): 44.0 US/US carotid duplex BI IMPRESSION: Findings consistent with 0-49% stenosis of the bilateral internal carotid arteries. Electronically signed by: Contreras Coffman MD 02/04/2025 02:23 PM EDT
== END 2025-02-04 13:47 | disposition home or self-care (01) ==
LOC: HO.HMGCX 13:46
PROVIDERS: PCP Internal Medicine; Visit Provider Internal Medicine Cardiovascular Disease
DX: I63.9 Cerebral infarction, unspecified (principal)
CPT/HCPCS: 93880

== ENCOUNTER → 2025-02-04 13:48 | Outpatient (BNV) | payer OTHER, SELFPAY | PROVIDERS: PCP Internal Medicine; Visit Provider Radiology Diagnostic Radiology | DX: I63.9 Cerebral infarction, unspecified (principal) | CPT/HCPCS: 93880 ==

== ENCOUNTER 2025-02-05 14:42 | Outpatient (AMB) | payer OTHER, SELFPAY ==
--- NOTE | 2025-02-05 14:55 | A.OFFVIS_ITS ---
Vital Signs 02/05/25 14:56 Height 5 ft 4 in Weight 183 lb 6.793 oz BMI 31.5 BP 124/58 L Blood Pressure Location Lt brachial Position Sitting Pulse 70 Pulse Source Pulse Oximeter Intake Visit Reasons: follow up/ Cath/ US/ Stress test Curing Room Supervisor Required: No Accompanied by: Self / Same As Patient Allergies Seasonal Allergies Allergy (Verified 02/05/25 14:58) itchy watery eyes, nasal congestion levetiracetam Adverse Reaction (Severe, Verified 02/05/25 14:58) psychosis, confusion Medication List - Last Reconciled 02/05/25 by Sheela Oro NP-C aspirin (Adult Aspirin Regimen) 81 mg PO DAILY atorvastatin (Lipitor) 40 mg PO DAILY blood sugar diagnostic (FreeStyle Lite Strips) As directed check the BS QD blood-glucose meter As directed blood-glucose meter (FreeStyle Lite Meter kit) As directed divalproex (Depakote) 500 mg PO BID 90 days lancets (FreeStyle Lancets) As directed check BS QD metformin 500 mg PO BID metoprolol succinate ER (Toprol XL) 50 mg PO DAILY nitroglycerin 0.4 mg sublingual Q5M PRN HPI HPI follow up/ Cath/ US/ Stress test: Details: Mike is a 59-year-old male with past medical history of CVA, diabetes who reported exertional lightheadedness with throat tightness and 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 He underwent a cardiac catheterization showing no significant coronary artery disease and now presents for follow-up. Today he reports that he has not had recurrent symptoms since October. He also has not ran or refereed soccer since that time. He does ride his bike and does not get symptoms. Currently denying chest discomfort, throat tightness, shortness of breath, lightheadedness, syncope, edema. He tolerates normal ADLs without difficulty. He has been taking the atorvastatin and metoprolol that were prescribed. He continues on daily aspirin as well. 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 Right radial catheterization site is feeling good. [facility] Medical History Seizure disorder Alcoholic dementia Cerebellar atrophy Encephalopathy Generalized seizure disorder Opioid use disorder Diabetes mellitus Right rib fracture Surgical History No pertinent past surgical history Family History Father CAD (coronary artery disease) Other Mental health disorder Social History Housing: House Alcohol intake: former Comment: quit 05/2024 used to did drink a lot before Patient Tobacco Use Status: Never used Tobacco Years Smoked: marijuana e-Cigarette/Vaping Use: Never Used Second Hand Smoke Exposure: No service: No Current occupational status: unemployed Current occupation: rt handed/[employer] Cognitive needs: No Hearing needs: No Vision needs: No Review of Systems Const All systems reviewed & are unremarkable except as noted in HPI and below Denies daytime sleepiness, Denies difficulty sleeping, Denies snoring, Denies stops breathing during sleep and Denies weakness ENT Reports dizziness Card Details: throat tightness Denies chest pain, Denies rapid heart rate, Denies irregular heart rhythm, Denies claudication, Denies leg edema, Denies lightheadedness, Denies palpitations, Denies dyspnea, Denies dyspnea on exertion, Denies orthopnea, Denies paroxysmal nocturnal dyspnea and Denies slow heart rate Resp Denies cough, Denies dyspnea, Denies dyspnea on exertion and Denies snoring GI Reports no additional complaints, Denies hematochezia, Denies change in stool character and Denies dyspepsia Musc Denies abnormal gait, Denies muscle weakness and Denies numbness Neuro Denies abnormal gait, Reports dizziness, Denies numbness and Denies weakness Endo Denies palpitations Physical Exam Vital Signs: Last Vital Signs Pulse 70 02/05/25 14:56 BP 124/58 L 02/05/25 14:56 BMI result Body Mass Index 31.5 Const General: cooperative, healthy appearing, comfortable and no acute distress Orientation/consciousness: patient oriented x3 Neck Neck: Yes normal visual inspection Resp Effort & Inspection: normal respiratory effort Auscultation: clear to auscultation bilaterally, no crackles, no rales, no rhonchi and no wheezes Cardio Rate: regular rate Rhythm: regular rhythm Heart sounds: S1 normal heart sound present, S2 normal heart sound present, no gallops, no murmurs and no rubs Neuro General: patient oriented x3 Extrem General: Yes normal to inspection, No no pedal edema and No calf tenderness Psych Appearance: grossly normal Mental Status: mental status grossly normal Speech and movement: Normal speech and movement present Assessment & Plan Assessment & Plan (1) Chest pain: Code(s): R07.9 - Chest pain, unspecified Category: Medical Qualifiers: Chest pain type: chest pain on breathing Qualified Code(s): R07.1 - Chest pain on breathing Plan: Exertional symptoms of lightheadedness with throat tightness and intrascapular discomfort, when running. This was concerning for exertional angina and he underwent a cardiac catheterization on 01/20/2025 showing only luminal irregularities in the LAD and RCA. He has not resumed running as of yet. Will perform a exercise stress test to evaluate for symptoms, heart rate/rhythm and blood pressure response to exercise. 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 (2) Lightheaded: Code(s): R42 - Dizziness and giddiness Category: Medical Plan: Exertional lightheadedness, as above. Checking ETT. Will consider Holter monitor. (3) Hypertension, essential: Code(s): I10 - Essential (primary) hypertension Category: Medical Plan: Blood pressure goal less than 130/80. Good at present time. Continue metoprolol. (4) Left ventricular hypertrophy: Code(s): I51.7 - Cardiomegaly Category: Medical Plan: Recent echocardiogram shows EF 60-65% with mild LVH, grade 1 diastolic dysfunction, normal valves. History of hypertension. Currently well controlled. (5) Coronary artery calcification: Comment: CTA 11/2024 Code(s): I25.10 - Atherosclerotic heart disease of [place] coronary artery without angina pectoris Category: Medical Plan: CTA of the chest 12/09/2024 shows coronary artery calcifications are evident. He underwent cardiac catheterization showing no obstructive coronary artery disease. He is on aspirin, atorvastatin with ideal LDL goal less than 70 and metoprolol. Continue with risk factor modification. (6) S/P cardiac catheterization: Comment: 01/20/2025, lad mild luminal irregularities, RCA minimal luminal irregularities. Code(s): Z98.890 - Other specified postprocedural states Category: Surgical Plan: Right radial catheterization site well healed Plan Time spent on chart review, documentation, interview and assessment Orders: Orders CA stress test 12/24/24 I20.89 - Other forms of angina pectoris Coding Level of Care Code Est Pt Level 4 (90375) Complex EM visit Add On G2211 Diagnoses Chest pain R07.1 Chest pain type: chest pain on breathing Lightheaded R42 Hypertension, essential I10 Left ventricular hypertrophy I51.7 Coronary artery calcification I25.10 S/P cardiac catheterization Z98.890
[2025-02-05 14:56] VITALS: BP 124/58; PULSE 70; BMI 31.5
== END 2025-02-05 15:23 | disposition home or self-care (01) ==
LOC: HO.HCS 14:43
PROVIDERS: PCP Internal Medicine; Visit Provider Nurse Practitioner Family
DX: R07.1 Chest pain on breathing (principal); R42 Dizziness and giddiness; I10 Essential (primary) hypertension; I51.7 Cardiomegaly; I25.10 Atherosclerotic heart disease of native coronary artery without angina pectoris; Z98.890 Other specified postprocedural states
CPT/HCPCS: 99214

== ENCOUNTER → 2025-02-05 14:42 | Outpatient (BNVA) | payer OTHER, SELFPAY | PROVIDERS: PCP Internal Medicine; Visit Provider Nurse Practitioner Family | DX: Z71.2 Person consulting for explanation of examination or test findings (principal); R07.1 Chest pain on breathing; R42 Dizziness and giddiness; I10 Essential (primary) hypertension; I51.7 Cardiomegaly; I25.10 Atherosclerotic heart disease of native coronary artery without angina pectoris; Z98.890 Other specified postprocedural states | CPT/HCPCS: 99212 ==

== ENCOUNTER → 2025-02-17 08:52 | Outpatient (REF) | payer OTHER, SELFPAY ==
--- NOTE | 2025-02-17 08:54 | CA_ITS ---
Acquisition Time: 2025-02-17 09:10:17 Total Exercise Time: 00:07:00 Test Indications: CP,Dizzy Spells Medications: ASA DIVALPREX METFORMIN Protocol: JULIUS Max HR: 153 BPM 95% of Pred: 161 BPM Max BP: 190/90 mmHG Max Work Load: 8.5 METS Exercise stress test with exercise 7 mins of Julius Protocol, achieving 95% MPHR, without any reports of CP or lightheadedness, with isolated PVCs, with normotensive response to exercise. Without any EKG changes meeting criteria for ischemia. In recovery, pt continued to feel well. Test reviewed with Dr. Gomez. Referred By: Sheela Oro Electronically Signed By: Jonathan Strong
== END ==
LOC: HO.CARD 08:52
PROVIDERS: PCP Internal Medicine; Visit Provider Nurse Practitioner Family
DX: I20.89 Other forms of angina pectoris (principal); R42 Dizziness and giddiness; R07.9 Chest pain, unspecified
CPT/HCPCS: 93017

== ENCOUNTER → 2025-02-17 08:54 | Outpatient (BNV) | payer OTHER, SELFPAY | PROVIDERS: PCP Internal Medicine | DX: I49.3 Ventricular premature depolarization (principal) | CPT/HCPCS: 93016; 93018 ==

== ENCOUNTER 2025-04-24 09:51 | Outpatient (AMB) | payer OTHER, SELFPAY ==
--- NOTE | 2025-04-24 10:59 | MHC.OFFWIV ---
Intake Vital Signs 04/24/25 11:00 Height 5 ft 4 in Weight 178 lb BMI 30.6 BP 150/96 H Blood Pressure Location Lt brachial Position Sitting Respiration 18 Pulse 80 Pulse Source Pulse Oximeter Temp 98.7 F Temp Source Oral Pulse Oximetry (%) 98 Oxygen Delivery Method Room Air Intake Visit Reasons: EP cough congestion phlegm Intake Note: EP complains of cough (productive-yellowish) and chest congestion which get worst during the night for the last five days. Patient Tobacco Use Status: Never used Tobacco Allergies Seasonal Allergies Allergy (Verified 04/24/25 11:10) itchy watery eyes, nasal congestion levetiracetam Adverse Reaction (Severe, Verified 04/24/25 11:10) psychosis, confusion Do you need a note to return to daycare/school/sports/work: No HPI HPI Comments History of Present Illness Details History - The patient is a 59-year-old male presenting with cough, fever, and sore throat. - His symptoms began 5 days ago with a fever and sore throat, with the fever lasting approximately 24 hours before resolving on Sunday. - A cough developed on Sunday and has persisted, his abdominal muscles are sore from coughing so much. cannot sleep at night because he is up coughing all night. - Does not take any sedating meds at bedtime. - He denies any trouble breathing, wheezing, sinus pain, or ear pain. - He has been taking Benadryl for his symptoms. - He has a history of pollen allergies and occasionally uses Afrin, but has not used it recently. - He has no history of asthma or COPD. - He denies smoking or vaping. [facility] Medical History Seizure disorder Alcoholic dementia Cerebellar atrophy Encephalopathy Generalized seizure disorder Opioid use disorder Diabetes mellitus Right rib fracture Surgical History No pertinent past surgical history Family History Father CAD (coronary artery disease) Other Mental health disorder Social History Housing: House Alcohol intake: former Comment: quit 05/2024 used to did drink a lot before Patient Tobacco Use Status: Never used Tobacco Years Smoked: marijuana e-Cigarette/Vaping Use: Never Used Second Hand Smoke Exposure: No service: No Current occupational status: unemployed Current occupation: rt handed/[employer] Cognitive needs: No Hearing needs: No Vision needs: No Review of Systems Narrative Review of Systems - Constitutional: Reports a history of fever which has resolved. Denies fatigue. - HEENT: Reports a history of sore throat which has resolved. Denies sinus pain and ear pain. - Respiratory: Reports cough. Denies dyspnea or wheezing. All systems reviewed and are unremarkable except as noted in HPI Physical Exam Exam Exam: Physical Exam General: Cooperative, healthy appearing, comfortable and no acute distress Orientation/consciousness: Patient oriented x3 Limitations: No limitations Head: Normal to inspection Ears: Hearing grossly normal bilaterally, external ears normal, EAC's normal bilaterally and TM's normal bilaterally Nose: Normal external nose present, Normal nares present and No nasal discharge present Face and sinus: Normal facial exam and sinuses nontender Mouth: Normal oral and palatal mucosa present and moist mucous membranes Throat: tonsils normal, no exudates, uvula midline, posterior oropharynx erythema Eyes: Appearance normal, both eyes and all related structures Neck: Normal visual inspection, full ROM Respiratory: Clear to auscultation bilaterally. Normal respiratory effort, able to speak in complete sentences, actively coughing, no respiratory distress, not tachypneic, no tripod positioning and no use of accessory muscles Cardiovascular: Regular rate and rhythm. Normal S1 and S2 Skin: No rashes or lesions noted Neuro: Patient oriented x3 Extremities: Normal to inspection and Yes no clubbing, cyanosis or edema Vital Signs: Last Vital Signs Temp 98.7 F 04/24/25 11:00 Pulse 80 04/24/25 11:00 Resp 18 04/24/25 11:00 BP 150/96 H 04/24/25 11:00 Pulse Ox 98 04/24/25 11:00 Oxygen Delivery Method Room Air 04/24/25 11:00 BMI result Body Mass Index 30.6 Assessment & Plan Assessment & Plan (1) Acute viral syndrome: Code(s): B34.9 - Viral infection, unspecified Plan: Patient was informed and verbally consented to the use of an ambient scribe for clinic note documentation during this visit. VSS, pt well appearing and PE unremarkable. - The patient's cough is presumed to be secondary to a viral upper respiratory infection, as it followed a self-limited febrile illness. - Antibiotics are not indicated. - initially, I sent a prescription for cough syrup with codeine however, as I was riding my note, I noticed the patient does have a history of opioid use disorder so I had our nurse, Wanda, cancel the cough syrup and I sent a prescription for Tessalon Perles in its place. - [id number] options such as Mucinex to help expectorate or Christy-D, which combines an antihistamine and decongestant, were also suggested. - The patient was counseled on supportive care and advised that a post-viral cough can persist for several weeks. - The patient sometimes uses Afrin for pollen allergies. - He was counseled to use Afrin for no more than three consecutive days to avoid rebound congestion. Medications: New benzonatate DO NOT ALLOW CHILDREN TO HAVE ACCESS TO THIS MEDICATION IT IS DANGEROUS FOR CHILDREN. 200 mg PO BEDTIME PRN 10 caps 0RF cough Coding Level of Care Code Est Pt Level 3 (08884) Diagnoses Acute viral syndrome B34.9
[2025-04-24 11:00] VITALS: BP 150/96; PULSE 80; RESP 18; TEMP 37.1; O2SAT 98; BMI 30.6
== END 2025-04-24 11:27 | disposition home or self-care (01) ==
PROVIDERS: PCP Internal Medicine; Visit Provider Physician Assistant
DX: B34.9 Viral infection, unspecified (principal)

== ENCOUNTER → 2025-04-24 09:51 | Outpatient (BNVA) | payer OTHER, SELFPAY | PROVIDERS: PCP Internal Medicine; Visit Provider Physician Assistant | DX: B34.9 Viral infection, unspecified (principal) | CPT/HCPCS: 99212 ==